=== PATIENT | female | born 1975 | race Caucasian/White ===

== ENCOUNTER 2016-12-06 18:35 | Inpatient (IN) | payer MEDICARE, MEDICAID ==
[2016-12-06] MEDS ORDERED: NORMAL SALINE 1000 ML 1,000 ML IV ONE ×2 (19:19→22:09)
[2016-12-06] MEDS ORDERED: ONDANSETRON 4 MG TAB.RAPDIS PO ONE (19:19)
--- NOTE | 2016-12-06 19:23 | ER Document Report ---
ED Medical Screen (RME) - General Chief Complaint: Vomiting Stated Complaint: URINARY SYMPTOMS/VOMITING Time Seen by Provider: 12/06/16 19:16 Notes: 41-year-old female patient with a history of vomiting, not able to keep anything down. Possible urinary tract infection dysuria. Patient possibly had a seizure at home while the family was out. She does have a seizure history and is not on medications. She is tachycardic at triage. Shee does feel quite warm to touch. She denies injury occurring during her seizure. I have greeted and performed a rapid initial assessment of this patient. A comprehensive ED assessment and evaluation of the patient, analysis of test results and completion of the medical decision making process will be conducted by additional ED providers. TRAVEL OUTSIDE OF THE [place] IN LAST 30 DAYS: No - Related Data Allergies/Adverse Reactions: hydrocodone Adverse Reaction (Severe, Verified 12/06/16 18:44) nausea/vomiting Past Medical History - Past Medical History Cardiac Medical History: Denies: Hx Coronary Artery Disease, Hx Heart Attack, Hx Hypertension Pulmonary Medical History: Denies: Hx Asthma, Hx Bronchitis, Hx COPD, Hx Pneumonia Neurological Medical History: Reports: Hx Seizures - last one yrs ago. Denies: Hx Cerebrovascular Accident Renal/ Medical History: Denies: Hx Peritoneal Dialysis Musculoskeltal Medical History: Denies Hx Arthritis Past Surgical History: Reports: Hx Cholecystectomy - Immunizations Hx Diphtheria, Pertussis, Tetanus Vaccination: No Physical Exam - Vital signs Vitals: Temp Pulse Resp BP Pulse Ox 99.0 F 120 H 16 146/90 H 94 12/06/16 18:44 12/06/16 18:44 12/06/16 18:44 12/06/16 18:44 12/06/16 18:44 Course - Vital Signs Vital signs: Temp Pulse Resp BP Pulse Ox 99.0 F 120 H 16 146/90 H 94 12/06/16 18:44 12/06/16 18:44 12/06/16 18:44 12/06/16 18:44 12/06/16 18:44
[2016-12-06 20:00] LABS: HEMATOCRIT 43.6 % (36.0-47.0); HEMOGLOBIN 14.7 g/dL (12.0-15.5); HGB HCT DIFFERENCE 0.5; MEAN CORPUSCULAR HEMOGLOBIN 31.2 pg (27.0-33.4); MEAN CORPUSCULAR HGB CONC 33.7 g/dL (32.0-36.0); MEAN CORPUSCULAR VOLUME 93 fl (80-97); RED BLOOD COUNT 4.72 10^6/uL (3.72-5.28); RED CELL DISTRIBUTION WIDTH 13.1 % (11.5-14.0); WHITE BLOOD COUNT 16.5 10^3/uL (4.0-10.5)
[2016-12-06 20:06] LABS: ALANINE AMINOTRANSFERASE 42 U/L (9-52); ALKALINE PHOSPHATASE 173 U/L (38-126); ANION GAP 15 (5-19); ASPARTATE AMINO TRANSFERASE 35 U/L (14-36); BILIRUBIN,DIRECT 1.1 mg/dL (0.0-0.4); BILIRUBIN,TOTAL 2.9 mg/dL (0.2-1.3); BLOOD UREA NITROGEN 13 mg/dL (7-20); CARBON DIOXIDE 22 mmol/L (22-30); CHLORIDE 105 mmol/L (98-107); CREATININE RESULT 0.88 mg/dL (0.52-1.25); GLUCOSE 114 mg/dL (75-110); POTASSIUM 3.7 mmol/L (3.6-5.0); SODIUM 141.8 mmol/L (137-145); TOTAL PROTEIN 7.5 g/dL (6.3-8.2)
[2016-12-06 20:26] LABS: BAND NEUTROPHILS % (MANUAL) 2 % (3-5); BASOPHILS % (MANUAL) 0 % (0-2); EOSINOPHILS % (MANUAL) 0 % (0-6); LYMPHOCYTES % (MANUAL) 1 % (13-45); TOTAL CELLS COUNTED 100
[2016-12-06 20:30] LABS: OVALOCYTES SLIGHT; POIKILOCYTOSIS SLIGHT; TOXIC GRANULATION SLIGHT
[2016-12-06] MEDS ORDERED: ACETAMINOPHEN 325 MG TABLET PO ONE (22:10)
[2016-12-06] MEDS ORDERED: ONDANSETRON HCL INJ/PF 4 MG/2 ML SDV IV ONE (22:10)
[2016-12-06 22:34] LABS: APPEARANCE,URINE CLOUDY; BILIRUBIN,URINE NEGATIVE (NEGATIVE); GLUCOSE, URINE NEGATIVE (NEGATIVE); KETONES,URINE 20 mg/dL (NEGATIVE); LEUKOCYTE ESTERASE,URINE LARGE (NEGATIVE); NITRITE,URINE POSITIVE (NEGATIVE); PROTEIN,URINE 100 mg/dL (NEGATIVE); URINE SPECIFIC GRAVITY 1.012
[2016-12-06] MEDS ORDERED: CEFTRIAXONE INJ 1000 MG VIAL IV ONE (23:06)
--- NOTE | 2016-12-07 00:43 | ER Document Report ---
ED General - General Chief Complaint: Vomiting Stated Complaint: URINARY SYMPTOMS/VOMITING Time Seen by Provider: 12/06/16 19:16 Notes: Patient is a 41-year-old female presents with complaint of right-sided back pain and dysuria. She also woke up on the floor from her bed. She thinks may have had a seizure. She has history of seizures. She also has been having fevers off and on. T-max at home was 102 today. She has had some vomiting. No diarrhea. some body aches. No other complaints at this time. TRAVEL OUTSIDE OF THE [place] IN LAST 30 DAYS: No - Related Data Allergies/Adverse Reactions: hydrocodone Adverse Reaction (Severe, Verified 12/06/16 18:44) nausea/vomiting Past Medical History - Social History Smoking Status: Current Every Day Smoker Chew tobacco use (# tins/day): No Frequency of alcohol use: None Drug Abuse: None Family History: Reviewed & Not Pertinent Patient has suicidal ideation: No Patient has homicidal ideation: No - Past Medical History Cardiac Medical History: Denies: Hx Coronary Artery Disease, Hx Heart Attack, Hx Hypertension Pulmonary Medical History: Denies: Hx Asthma, Hx Bronchitis, Hx COPD, Hx Pneumonia Neurological Medical History: Reports: Hx Seizures - last one yrs ago. Denies: Hx Cerebrovascular Accident Renal/ Medical History: Denies: Hx Peritoneal Dialysis Musculoskeltal Medical History: Denies Hx Arthritis Past Surgical History: Reports: Hx Cholecystectomy - Immunizations Hx Diphtheria, Pertussis, Tetanus Vaccination: No Review of Systems - Review of Systems Notes: My Normal Review Basic REVIEW OF SYSTEMS: CONSTITUTIONAL : fever EENT: Denies eye, ear, throat, or mouth pain or symptoms. Denies nasal or sinus congestion. CARDIOVASCULAR: Denies chest pain. RESPIRATORY: Denies cough, cold, or chest congestion. Denies shortness of breath, difficulty breathing, or wheezing. GASTROINTESTINAL: Denies abdominal pain. vomiting. GENITOURINARY: dysuria MUSCULOSKELETAL: bodycaches SKIN: Denies rash or skin lesions. HEMATOLOGIC : Denies easy bruising or bleeding. LYMPHATIC: Denies swollen, enlarged glands. NEUROLOGICAL: ? seizure PSYCHIATRIC: Denies anxiety or stress or depression. ALL OTHER SYSTEMS REVIEWED AND NEGATIVE. Physical Exam - Vital signs Vitals: Temp Pulse Resp BP Pulse Ox 99.0 F 120 H 16 146/90 H 94 12/06/16 18:44 12/06/16 18:44 12/06/16 18:44 12/06/16 18:44 12/06/16 18:44 - Notes Notes: General Appearance: Well nourished, alert, cooperative, no acute distress, mild obvious discomfort. Vitals: reviewed, See vital signs table. Head: no swelling or tenderness to the head Eyes: PERRL, EOMI, Conjuctiva clear Mouth: No decreasd moisture Lungs: No wheezing, No rales, No rhonci, No accessory muscle use, good air exchange bilaterally. Heart: Tachycardic rate, Regular rythm, No murmur, no rub Abdomen: Normal BS, soft, No rigidity, No abdominal tenderness, No guarding, no rebound, no abdominal masses, no organomegaly Back: Positive Jeremy's sign on the right. Extremities: strength 5/5 in all extremities, good pulses in all extremities, no swelling or tenderness in the extremities, no edema. Skin: warm, dry, appropriate color, no rash Neuro: speech clear, oriented x 3, normal affect, responds appropriately to questions. Course - Vital Signs Vital signs: Temp Pulse Resp BP Pulse Ox 98.7 F 108 H 16 130/69 H 96 12/07/16 01:39 12/07/16 01:39 12/07/16 01:39 12/07/16 01:39 12/07/16 01:39 - Laboratory Result Diagrams: 12/06/16 19:38 12/06/16 19:38 Laboratory results interpreted by me: 12/06/16 12/06/16 12/06/16 19:38 19:38 22:04 WBC 16.5 H Seg Neuts % (Manual) 91 H Band Neutrophils % 2 L Lymphocytes % (Manual) 1 L Abs Neuts (Manual) 15.3 H Abs Lymphs (Manual) 0.2 L Glucose 114 H Total Bilirubin 2.9 H Direct Bilirubin 1.1 H Alkaline Phosphatase 173 H Urine Protein 100 H Urine Ketones 20 H Urine Blood LARGE H Urine Nitrite POSITIVE H Urine Urobilinogen 4.0 H Ur Leukocyte Esterase LARGE H - Transfer of Care Notes: 12/07/16 03:[address] Hardy, urologist on-call, he says he will come evaluate the patient for possible interventional treatment for the infected kidney stone. Patient continues to not appear septic or toxic. Discharge - Discharge Clinical Impression: Pyelonephritis, Calculus of right kidney Condition: Stable Disposition: ADMITTED INPATIENT Admitting Provider: [facility] Admitted: OR
--- NOTE | 2016-12-07 00:50 | RADIOLOGY REPORT (SQ) ---
EXAM DESCRIPTION: U/S RETROPERITON (RENAL/AORTA) COMPLETED DATE/TIME: 12/07/2016 12:23 am REASON FOR STUDY: kidney infection COMPARISON: CT, 02/27/2016. TECHNIQUE: Dynamic and static grayscale images acquired of the kidneys and bladder and recorded on P ACS. Additional selected color Doppler and spectral images recorded. LIMITATIONS: None. FINDINGS: RIGHT KIDNEY: Normal size. Normal echogenicity. No solid or suspicious masses. Nonspecifi c prominence of the right renal collecting system. No calcifications. LEFT KIDNEY: Normal size. Normal echogenicity. No solid or suspicious masses. No hydronephrosis. No calcifications. BLADDER: No masses. Ureteral jet flow was not demonstrated. OTHER FINDINGS: No other significant finding. IMPRESSION: Nonspecific prominence of the right renal collecting system which may indicate mild hydr onephrosis/ hydroureter or mild dilation. Otherwise unremarkable bilateral kidneys. TECHNICAL DOCUMENTATION: JOB ID: [id number] [employer]- All Rights Reserved
--- NOTE | 2016-12-07 02:37 | RADIOLOGY REPORT (SQ) ---
EXAM DESCRIPTION: CT LTD RENAL STONE PROTOCOL ON COMPLETED DATE/TIME: 12/07/2016 2:23 am REASON FOR STUDY: rule out kidney stone COMPARISON: US, renal, 12/06/16 TECHNIQUE: CT scan of the abdomen and pelvis performed without intravenous or oral contrast. Images reviewed with lung, soft tissue, and bone windows. Reconstructed coronal and sagittal MPR images revi ewed. All images stored on PACS. All CT scanners at this facility use dose modulation, iterative reconstruction, and/or weight based d osing when appropriate to reduce radiation dose to as low as reasonably achievable (ALARA). [facility]: Dose Right [facility]: CareDose [facility]: Dose Right [facility]: Teradose 4D [facility]: Metavana RADIATION DOSE: 939 LIMITATIONS: None. FINDINGS: LOWER CHEST: Small dependent atelectasis or scar of bilateral lung bases. NON-CONTRASTED LIVER, SPLEEN, ADRENALS: Evaluation limited by lack of IV contrast. No identified sign ificant masses. PANCREAS: No masses. No peripancreatic inflammatory changes. GALLBLADDER: Surgically absent. RIGHT KIDNEY AND URETER: 0.5 x 0.4 x 0.3 cm right proximal-mid ureteral stone at the level of the L4 vertebral body, mild right hydronephrosis, mild right proximal hydroureter, malrotation of the right kidney, right renal malrotation, and moderate right perirenal fat stranding consistent with recent ve sicoureteral reflux. 0.2 cm right renal stone. LEFT KIDNEY AND URETER: No suspicious masses. Assessment limited by lack of IV contrast. 0.3 cm lef t renal stone. No hydronephrosis or hydroureter. AORTA AND RETROPERITONEUM: No aneurysm. No retroperitoneal masses or adenopathy. BOWEL AND PERITONEAL CAVITY: No obvious masses or inflammatory changes. No free fluid. APPENDIX: Normal. PELVIS, BLADDER, AND ABDOMINAL WALL:No abnormal masses. No free fluid. Bladder normal. BONES: Mild L2-L3 disc desiccation. OTHER: No other significant finding. IMPRESSION: 0.5 cm right mid ureteral stone with low- moderate grade obstruction. TECHNICAL DOCUMENTATION: JOB ID: [id number] Quality ID # [id number]: Final reports with documentation of one or more dose reduction techniques (e.g., Au tomated exposure control, adjustment of the mA and/or kV according to patient size, use of iterative reconstruction technique) 2010 [employer]- All Rights Reserved
[2016-12-07] MEDS ORDERED: FENTANYL CITRATE INJ/PF 100 MCG/2 ML AMPUL ONE ×2 (04:31)
[2016-12-07] MEDS ORDERED: PROPOFOL INJ 200 MG/20 ML VIAL IV ONE (04:32)
[2016-12-07] MEDS ORDERED: ONDANSETRON HCL INJ/PF 4 MG/2 ML SDV ONE (04:32)
[2016-12-07] MEDS ORDERED: MIDAZOLAM 2 MG/2 ML INJ ONE (04:32)
[2016-12-07] MEDS ORDERED: DEXAMETHASONE SOD PHOSPHATE INJ 4 MG/1 ML VIAL ONE (04:32)
[2016-12-07] MEDS ORDERED: LIDOCAINE 2% URO-JET 5 ML KIT ONE (05:17)
[2016-12-07] MEDS ORDERED: LIDOCAINE 2% URO-JET 5 ML KIT MM ONE (05:27)
[2016-12-07] MEDS ORDERED: MEPERIDINE HCL/PF INJ 25 MG/1 ML DISP.SYRIN IV PRN (05:54)
[2016-12-07] MEDS ORDERED: FENTANYL CITRATE INJ/PF 100 MCG/2 ML AMPUL IV PRN ×3 (05:54)
[2016-12-07] MEDS ORDERED: PROMETHAZINE HCL INJ 25 MG/1 ML VIAL IV PRN ×2 (05:54)
[2016-12-07] MEDS ORDERED: DIPHENHYDRAMINE HCL 50 MG/ML VIAL IV PRN (05:54)
[2016-12-07] MEDS ORDERED: 1/2 NORMAL SALINE 1,000 ML IV PRN ×3 (06:12→19:00)
[2016-12-07] MEDS ORDERED: OXYBUTYNIN CHLORIDE 5 MG TABLET PO SCH (06:15)
--- NOTE | 2016-12-07 06:19 | RADIOLOGY REPORT (SQ) ---
EXAM DESCRIPTION: KUB/ABDOMEN (SINGLE VIEW); NO CHG FLUORO COMPLETED DATE/TIME: 12/07/2016 6:01 am REASON FOR STUDY: STENT PLCMT RT SIDE DONE IN CYSTO ROOM COMPARISON: None. NUMBER OF VIEWS: One view. 3 images. Fluoro time 20 seconds. TECHNIQUE: Supine radiographic image of the abdomen acquired. LIMITATIONS: None. FINDINGS: Portable C-arm radiographs obtained interpreted by the performing clinician at time examin ation to facilitate surgical outcome during right ureteral stent placement. IMPRESSION: As above. TECHNICAL DOCUMENTATION: JOB ID: [id number] [employer]- All Rights Reserved
--- NOTE | 2016-12-07 06:19 | RADIOLOGY REPORT (SQ) ---
EXAM DESCRIPTION: KUB/ABDOMEN (SINGLE VIEW); NO CHG FLUORO COMPLETED DATE/TIME: 12/07/2016 6:01 am REASON FOR STUDY: STENT PLCMT RT SIDE DONE IN CYSTO ROOM COMPARISON: None. NUMBER OF VIEWS: One view. 3 images. Fluoro time 20 seconds. TECHNIQUE: Supine radiographic image of the abdomen acquired. LIMITATIONS: None. FINDINGS: Portable C-arm radiographs obtained interpreted by the performing clinician at time examin ation to facilitate surgical outcome during right ureteral stent placement. IMPRESSION: As above. TECHNICAL DOCUMENTATION: JOB ID: [id number] [employer]- All Rights Reserved
[2016-12-07] MEDS ORDERED: KETOROLAC TROMETHAMINE INJ/PF 30 MG/1 ML SDV IV PRN ×2 (06:28→08:22)
--- NOTE | 2016-12-07 06:38 | OPERATIVE REPORT E ---
Operative Report NAME: PEYTON JONES : 1975 AGE: 41Y DATE OF SURGERY: 12/07/2016 ROOM: ED13 PREOPERATIVE DIAGNOSES: 1. Right ureteral calculus. 2. Right pyelonephritis. 3. Urinary tract infection. PROCEDURE: Cystoscopy with insertion of right ureteral stent (24 cm x 6-Turkmen). SURGEON: LINH KAPLAN M.D. HR LEADER: None. SPECIMENS: None. BLEEDING: None. COMPLICATIONS: None. ANESTHESIA: MAC. INDICATIONS: The patient is a 41-year-old lady who was seen in the emergency room because of a temp of 102, white count of 16,500, and a UTI with a proximal right ureteral stone that is obstructing her ureter. Various options for treatment as well as risks and benefits were discussed with the patient. I recommended cystoscopy with insertion of a right ureteral stent. She agrees. OPERATION: After the patient was identified in the preop holding area, she was brought to the operating room. A timeout was performed for the correct patient, side of procedure, and procedure was confirmed. She was then given sedation and was next carefully positioned in a dorsal lithotomy position. She was prepped and draped in the routine sterile manner. A #23 obturator and sheath was inserted. The bladder was carefully examined. The urine appeared grossly infected. A guidewire was threaded up the right ureter under fluoroscopic guidance. A 24 cm x 6-Turkmen double-J catheter was threaded over the guidewire into the right collecting system with a distal coil in the bladder. Good position was confirmed with fluoroscopy. The bladder was emptied. The patient was returned to recovery room in satisfactory condition. PLAN: Once she is afebrile and her white count has normalized and she can be switched to oral antibiotics, she will be discharged for further followup as an outpatient. She was instructed to follow up with the Urology Clinic to arrange for right ureteroscopy with laser lithotripsy and removal of her double-J catheter. Since she has bilateral stones in her kidney and a ureteral stone, I recommended metabolic workup for stone disease as well. DICTATING PHYSICIAN: LINH KAPLAN M.D. [id number] PHY#: [id number] ID: [id number] JOB#: [id number] ACCT: [id number] cc:LINH KAPLAN M.D. >
--- NOTE | 2016-12-07 06:49 | HISTORY AND PHYSICAL E ---
History and Physical NAME: PEYTON JONES : 1975 AGE: 41Y ADMITTED: 12/07/2016 ROOM: ED13 CHIEF COMPLAINT: Right flank pain. HISTORY OF THE PRESENT ILLNESS: The patient is a 41-year-old lady, who developed sudden right flank pain 72 hours ago. This was associated with nausea and vomiting. She was seen in the emergency room yesterday and had a temperature of 102. She had also been having chills. A noncontrast CT showed a proximal 4.4 mm right ureteral stone with associated perinephric inflammatory changes consistent with obstruction. She has a punctate right mid kidney stone and a 3 mm nonobstructing stone in a papilla in the left lower pole. Her urinalysis appears grossly infected. She was given IV Rocephin after blood and urine cultures were sent. She denies any history of previous kidney stones. She has history of seizure and had one many years ago. She has normal renal function with creatinine of 0.8. Her bilirubin is elevated at 2.9. ALLERGIES: She has allergy to HYDROCODONE and has nausea and vomiting. The remainder of her social history, family history, review of systems is as noted in her admission note from the ER dated 12/06/[address] Mark Doan, which I reviewed and will not recount this dictation. PHYSICAL EXAMINATION: GENERAL: The patient is a 41-year-old white female in obvious distress. She is oriented x 3, she has an appropriate affect, she is overweight. VITAL SIGNS: As listed in the nurses' notes. HEAD, EYES, EARS, NOSE, THROAT, AND NECK: Extraocular movements are intact. Sclerae are nonicteric. No facial lesions are noted. Trachea is midline. RESPIRATORY: No evidence of labored breathing. HEART: Regular rhythm. ABDOMEN: Soft. GENITALIA: Show normal labia and vaginal introitus. No evidence of pelvic organ prolapse. EXTREMITIES: Full range of motion. SKIN: She has changes of psoriasis. neurological: normal IMPRESSION: 1. BILATERAL KIDNEY STONES THAT ARE SMALL AND NONOBSTRUCTING. 2. OBSTRUCTING 4.4 MM PROXIMAL RIGHT URETERAL CALCULUS. 3. RIGHT PYELONEPHRITIS. 4. URINARY TRACT INFECTION. PLAN: 1. Rocephin 1 gram IV q.12 hours. Pending culture results, she will be switched to oral therapy. 2. Discharge when she is afebrile and can be discharged on oral medication. 3. She will need to follow up with her PCP regarding her elevated bilirubin to sort this out. 4. She will need to make an appointment with the Urology Clinic to arrange for right ureteroscopy with laser lithotripsy and removal of her ureteral stent. DICTATING PHYSICIAN: LINH KAPLAN M.D. [id number] PHY#: [id number] ID: [id number] JOB#: [id number] ACCT: [id number] cc: > MTDD
[2016-12-07] MEDS: MORPHINE SULFATE 10 MG/ML INJ IV PRN ×3 (08:35→18:59)
[2016-12-07] MEDS: CEFTRIAXONE 1 GM/D5W RTU 1 GM/50 ML RTUPB IV SCH (10:05)
[2016-12-07] MEDS: OXYBUTYNIN CHLORIDE 5 MG TABLET PO SCH (10:06)
[2016-12-07] MEDS: PHENAZOPYRIDINE HCL 200 MG TABLET PO PRN ×2 (10:06→18:59)
[2016-12-07] MEDS: ACETAMINOPHEN 325 MG TABLET PO PRN (10:17)
[2016-12-07] MEDS: ONDANSETRON 4 MG TAB.RAPDIS PO PRN ×2 (13:45→22:30)
[2016-12-07] MEDS: HYDROCODONE/ACETAMINOPHEN 5-325 MG TABLET PO PRN (16:55)
[2016-12-07] MEDS: ONDANSETRON HCL INJ/PF 4 MG/2 ML SDV IV PRN (18:59)
[2016-12-08] MEDS: CEFTRIAXONE 1 GM/D5W RTU 1 GM/50 ML RTUPB IV SCH (01:26)
[2016-12-08] MEDS: OXYBUTYNIN CHLORIDE 5 MG TABLET PO SCH ×3 (01:27→21:29)
[2016-12-08] MEDS: ACETAMINOPHEN 325 MG TABLET PO PRN ×4 (04:25→21:32)
[2016-12-08] MEDS: MORPHINE SULFATE 10 MG/ML INJ IV PRN ×3 (04:25→21:32)
[2016-12-08 06:00] LABS: HEMATOCRIT 35.6 % (36.0-47.0); HGB HCT DIFFERENCE -0.5; MEAN CORPUSCULAR HGB CONC 32.7 g/dL (32.0-36.0); MEAN CORPUSCULAR VOLUME 95 fl (80-97); RED BLOOD COUNT 3.76 10^6/uL (3.72-5.28); RED CELL DISTRIBUTION WIDTH 13.2 % (11.5-14.0); WHITE BLOOD COUNT 11.4 10^3/uL (4.0-10.5)
[2016-12-08 06:10] LABS: HEMOGLOBIN 11.7 g/dL (12.0-15.5)
[2016-12-08 06:11] LABS: ANION GAP 11 (5-19); BLOOD UREA NITROGEN 16 mg/dL (7-20); CALCIUM 8.2 mg/dL (8.4-10.2); CARBON DIOXIDE 21 mmol/L (22-30); CHLORIDE 106 mmol/L (98-107); CREATININE RESULT 0.98 mg/dL (0.52-1.25); GLUCOSE 130 mg/dL (75-110); POTASSIUM 3.5 mmol/L (3.6-5.0); SODIUM 138.1 mmol/L (137-145)
[2016-12-08] MEDS: ONDANSETRON 4 MG TAB.RAPDIS PO PRN (09:01)
[2016-12-08] MEDS ORDERED: BISACODYL 10 MG SUPP.RECT PR PRN (09:39)
--- NOTE | 2016-12-08 10:13 | PROGRESS NOTE E ---
Progress Note NAME: PEYTON JONES : 1975 AGE: 41Y DATE: 12/08/2016 ROOM: 528 SUBJECTIVE: The patient had a temp of 102.2 at 4 a.m. today. Her temp was 100.8 at 5 a.m. Currently it is 99. She had 1 positive blood culture and a positive urine culture for gram-negative last. The sensitivities are pending at this time. She is currently on Rocephin. Her blood pressure is 105/58. Her respirations are 18. She has had some nausea overnight and also complains of a headache. Her IV infiltrated. For the past 24 hours she had 4800 in and 4000 out. OBJECTIVE: GENERAL: She is alert, oriented in mild distress. VITAL SIGNS: Noted above. CHEST: Shows some scattered rales and some wheezes. No evidence of consolidation. No evidence of labored breathing. HEART: Regular rhythm without murmur or gallop. ABDOMEN: Soft. LABORATORY DATA: Her white count has dropped from 16,500 to 11,400. Her hemoglobin has dropped from 14.7 to 11.7 (most likely due to dilution effect). Her potassium is 3.5, creatinine 0.98, glucose is 130, calcium is 8.2. IMPRESSION: 1. Bacteremia. 2. History of smoking with scattered rales and rhonchi. 3. Right ureteral calculus and pyelonephritis status post insertion of double-J catheter. PLAN: 1. Reinsert her IV or if this cannot be done, then she will need a central line. 2. Nicotine patch. 3. [id number] and Dulcolax suppositories as needed for constipation. 4. Expand her antibiotic coverage. Will start Meropenem 500mg q 8hr. will add 20meq KCl/liter x 48 hr, recheck BMP in AM 5. She will need to remain hospitalized until her temperature normalizes and she can be switched to oral antibiotics. She will then need to be followed up as an outpatient in the Urology Clinic and to arrange for ureteroscopy with laser lithotripsy and removal of her stent some time next week. 6. Consult Hospitalist for medical management. I will be rotating off service at 8AM tomorrow. I have spoke with the hospitalist and the hospitalist team will take Peyton in transfer tomorrow. I have written a prescription for Vicodin #15, and Oxybutynin XL 10mg and left the Rx in the front of the chart. I did not write a Rx for oral antibiotics to take upon discharge because her culture sensitivities are still pending. DICTATING PHYSICIAN: LINH KAPLAN M.D. [id number] PHY#: [id number] ID: [id number] JOB#: [id number] ACCT: [id number] cc: > MTDD
--- NOTE | 2016-12-08 10:40 | RADIOLOGY REPORT (SQ) ---
EXAM DESCRIPTION: CHEST PA/LAT COMPLETED DATE/TIME: 12/08/2016 10:31 am REASON FOR STUDY: wheezing COMPARISON: 05/22/2016 EXAM PARAMETERS: NUMBER OF VIEWS: two views TECHNIQUE: Digital Frontal and Lateral radiographic views of the chest acquired. RADIATION DOSE: NA LIMITATIONS: none FINDINGS: LUNGS AND PLEURA: No opacities, masses or pneumothorax. No pleural effusion. MEDIASTINUM AND HILAR STRUCTURES: No masses or contour abnormalities. HEART AND VASCULAR STRUCTURES: Heart normal size. No evidence for failure. BONES: No acute findings. HARDWARE: None in the chest. OTHER: No other significant finding. IMPRESSION: NO SIGNIFICANT RADIOGRAPHIC FINDING IN THE CHEST. TECHNICAL DOCUMENTATION: JOB ID: [id number] [employer]- All Rights Reserved
[2016-12-08] MEDS ORDERED: PROMETHAZINE HCL 25 MG SUPP (4 SUPP/ER DISP) PR ONE (11:07)
[2016-12-08] MEDS ORDERED: MORPHINE SULFATE 10 MG/ML INJ IM PRN (11:07)
[2016-12-08] MEDS ORDERED: PROMETHAZINE HCL 25 MG SUPP.RECT PR PRN (11:16)
--- NOTE | 2016-12-08 11:16 | PDOC CONSULTATION ---
Consultation Consult Date: 12/08/16 Attending physician:: LINH KAPLAN Consult reason:: Managing medical conditions including bacteremia History of Present Illness Admission Date/PCP: 12/07/16 11:28 Patient complains of: Nausea and flank pain History of Present Illness: PEYTON JONES is a 41 year old female has no chronic past medical history except for congenital deafness who presented with flank pain and fever and was found to have a kidney stone. The patient was admitted by urology and a stent was placed. Blood culture showing gram-negative last bacteremia. The hospitalist service has been consulted for management of bacteremia and other medical conditions. The patient today denies any complaints other than feeling nauseous and having flank pain. Past Medical History Cardiac Medical History: Denies: Coronary Artery Disease, Myocardial Infarction, Hypertension Pulmonary Medical History: Denies: Asthma, Bronchitis, Chronic Obstructive Pulmonary Disease (COPD), Pneumonia EENT Medical History: Reports: Other - Congenital deafness Neurological Medical History: Reports: Seizures - last one yrs ago Endocrine Medical History: Reports: None Renal/ Medical History: Reports: Nephrolithiasis Malignancy Medical History: Reports: None GI Medical History: Reports: None Musculoskeltal Medical History: Denies: Arthritis Psychiatric Medical History: Denies: Depression Traumatic Medical History: Reports: None Hematology: Denies: Anemia Past Surgical History Past Surgical History: Reports: Cholecystectomy Social History Information Source: Patient Lives with: Spouse/Significant other Smoking Status: Current Every Day Smoker Cigarettes Packs Per Day: 0.2 Frequency of Alcohol Use: None Hx Recreational Drug Use: No Drugs: None Hx Prescription Drug Abuse: No - Advance Directive Resuscitation Status: Full Code Surrogate healthcare decision maker:: Family History Family History: Mother at age 63 from uterine cancer. Father 69 alive. He has had unspecified type of cancer Parental Family History Reviewed: Yes Children Family History Reviewed: No Sibling(s) Family History Reviewed.: No Medication/Allergy Home Medications: No Home Medications 12/07/16 Allergies/Adverse Reactions: hydrocodone Adverse Reaction (Severe, Verified 12/07/16 16:46) nausea/vomiting Review of Systems Constitutional: PRESENT: chills, fever(s). ABSENT: headache(s), weight gain, weight loss Eyes: ABSENT: visual disturbances Ears: PRESENT: other - Deafness Cardiovascular: ABSENT: chest pain, dyspnea on exertion, edema, orthropnea, palpitations Respiratory: ABSENT: cough, hemoptysis Gastrointestinal: PRESENT: nausea, vomiting. ABSENT: abdominal pain, constipation, diarrhea, hematemesis, hematochezia Genitourinary: PRESENT: as per HPI Musculoskeletal: ABSENT: joint swelling Integumentary: ABSENT: rash, wounds Neurological: ABSENT: abnormal gait, abnormal speech, confusion, dizziness, focal weakness, syncope Psychiatric: ABSENT: anxiety, depression Endocrine: ABSENT: cold intolerance, heat intolerance, polydipsia, polyuria Hematologic/Lymphatic: ABSENT: easy bleeding, easy bruising Physical Exam Vital Signs: Temp Pulse Resp BP Pulse Ox 99.0 F 95 18 105/58 L 94 12/08/16 07:57 12/08/16 07:57 12/08/16 07:57 12/08/16 07:57 12/08/16 07:57 Intake & Output 12/07/16 12/08/16 12/09/16 06:59 06:59 06:59 Intake Total 1404 Output Total 1650 Balance -246 General appearance: PRESENT: no acute distress Head exam: PRESENT: atraumatic, normocephalic Eye exam: PRESENT: conjunctiva pink. ABSENT: scleral icterus Ear exam: PRESENT: normal external ear exam Mouth exam: PRESENT: moist, tongue midline Neck exam: ABSENT: carotid bruit, JVD, lymphadenopathy, thyromegaly Respiratory exam: PRESENT: clear to auscultation kenton. ABSENT: rales, rhonchi, wheezes Cardiovascular exam: PRESENT: RRR. ABSENT: diastolic murmur, rubs, systolic murmur GI/Abdominal exam: PRESENT: normal bowel sounds, soft. ABSENT: distended, guarding, mass, organolmegaly, rebound, tenderness Rectal exam: PRESENT: deferred Extremities exam: ABSENT: calf tenderness, clubbing, pedal edema Neurological exam: PRESENT: alert, awake, oriented to person, oriented to place , oriented to time, oriented to situation, other - Patient is deaf. ABSENT: motor sensory deficit Psychiatric exam: PRESENT: appropriate affect Skin exam: PRESENT: dry, intact, warm. ABSENT: cyanosis, rash Results Laboratory Results: 12/08/16 05:26 12/08/16 05:26 12/08/16 12/08/16 05:26 05:26 WBC 11.4 H RBC 3.76 Hgb 11.7 L D Hct 35.6 L MCV 95 MCH 31.0 MCHC 32.7 RDW 13.2 Plt Count 119 L Sodium 138.1 Potassium 3.5 L Chloride 106 Carbon Dioxide 21 L Anion Gap 11 BUN 16 Creatinine 0.98 Est GFR ( Amer) > 60 Est GFR (Non-Af Amer) > 60 Glucose 130 H Calcium 8.2 L Impressions: Renal Ultrasound 12/06/16 23:06 IMPRESSION: Nonspecific prominence of the right renal collecting system which may indicate mild hydronephrosis/ hydroureter or mild dilation. Otherwise unremarkable bilateral kidneys. KUB X-Ray 12/07/16 00:00 IMPRESSION: As above. Limited or Localized CT 12/07/16 01:59 IMPRESSION: 0.5 cm right mid ureteral stone with low- moderate grade obstruction. Fluoroscopy 12/07/16 05:05 IMPRESSION: As above. Chest X-Ray 12/08/16 09:39 IMPRESSION: NO SIGNIFICANT RADIOGRAPHIC FINDING IN THE CHEST. Assessment & Plan - Diagnosis (1) Kidney stone on right side Is this a current diagnosis for this admission?: YesPlan: Patient has had a stent placed. (2) Pyelonephritis Is this a current diagnosis for this admission?: YesPlan: Been switched to doripenem. Patient does have bacteremia also appear. Patient is having some pain and does not yet have an IV. We will give morphine IM until an IV has been established. - Time Time Spent: 50 to 70 Minutes - Inpatient Certification Medical Necessity: Need Close Monitoring Due to Risk of Patient Decompensation, Need for IV Antibiotics
[2016-12-08] MEDS: NICOTINE 7 MG/24 HR PATCH.TD24 TD PRN (11:33)
[2016-12-08] MEDS ORDERED: LIDOCAINE 1% INJ-PF (10 MG/ML) 30 ML SDV ONE (12:06)
--- NOTE | 2016-12-08 13:06 | RADIOLOGY REPORT (SQ) ---
EXAM DESCRIPTION: CHEST SINGLE VIEW COMPLETED DATE/TIME: 12/08/2016 12:50 pm REASON FOR STUDY: RT CL COMPARISON: 12/08/2016 EXAM PARAMETERS: NUMBER OF VIEWS: One view. TECHNIQUE: Single frontal radiographic view of the chest acquired. RADIATION DOSE: NA LIMITATIONS: None. FINDINGS: LUNGS AND PLEURA: No opacities, masses or pneumothorax. No pleural effusion. MEDIASTINUM AND HILAR STRUCTURES: No masses. Contour normal. HEART AND VASCULAR STRUCTURES: Heart normal in size. Normal vasculature. BONES: No acute findings. HARDWARE: Right IJ venous catheter terminates within the caval atrial junction. OTHER: No other significant finding. IMPRESSION: SATISFACTORY PLACEMENT RIGHT IJ VENOUS CATHETER. NO COMPLICATION IDENTIFIED. TECHNICAL DOCUMENTATION: JOB ID: [id number]
--- NOTE | 2016-12-08 13:28 | OPERATIVE REPORT E ---
Operative Report NAME: PEYTON JONES : 1975 AGE: 41Y DATE OF SURGERY: ROOM: 528 PREOPERATIVE DIAGNOSES: 1. Poor veins for intravenous access. 2. Sepsis. POSTOPERATIVE DIAGNOSES: 1. Poor veins for intravenous access. 2. Sepsis. OPERATION: Insertion of right internal jugular vein triple lumen catheter under ultrasound guidance. SURGEON: MAHENDRA GONZALES M.D. ANESTHESIA: Local monitored anesthesia care. INDICATION: This is a 41-year-old female who had a stent placed in the ureter yesterday by Dr. Hardy. Patient noted fever and sepsis today and needed IV access for IV antibiotic medication and other meds. Patient did have a dose of morphine IM prior to placement of the catheter. PROCEDURE: After IM morphine medication, the right neck was then prepped and draped in the usual sterile fashion. With the use of ultrasound the right internal jugular vein was then identified and subsequently punctured, and a guidewire passed through the needle towards the superior vena cava. The needle was removed, and the puncture site enlarged with a #11 blade. A dilator was then passed through the guidewire, and the puncture site dilated. The dilator was removed, a triple lumen catheter inserted through the guidewire, and inserted to about 17 cm towards the superior vena cava. The guidewire was subsequently removed, and all the ports aspirated easily with blood and injected with saline solution easily. The catheter was then anchored to the skin with 3-0 silk. A Biopatch was then placed at the puncture site, and a sterile *------* dressing was then used to dress the catheter. A chest x-ray will be obtained for placement. Patient tolerated the procedure well. DICTATING PHYSICIAN: MAHENDRA GONZALES M.D. [id number] PHY#: [id number] ID: [id number] JOB#: [id number] ACCT: [id number] cc:MAHENDRA GONZALES M.D. >
[2016-12-08] MEDS: POTASSI CL 20 MEQ/1/2NS 1L 1000 ML IV PRN (14:19)
[2016-12-08] MEDS: DORIPENEM 500 MG in NORMAL SALINE 100 ML IV SCH ×2 (14:19→21:29)
[2016-12-08] MEDS: HYDROCODONE/ACETAMINOPHEN 5-325 MG TABLET PO PRN (19:30)
[2016-12-09] MEDS: ACETAMINOPHEN 325 MG TABLET PO PRN ×2 (02:35→06:39)
[2016-12-09] MEDS: POTASSI CL 20 MEQ/1/2NS 1L 1000 ML IV PRN ×2 (02:47→10:57)
[2016-12-09] MEDS: MORPHINE SULFATE 10 MG/ML INJ IV PRN ×2 (02:47→06:39)
[2016-12-09] MEDS: DORIPENEM 500 MG in NORMAL SALINE 100 ML IV SCH ×3 (05:36→21:51)
[2016-12-09 06:40] LABS: MEAN CORPUSCULAR HEMOGLOBIN 31.7 pg (27.0-33.4); MEAN CORPUSCULAR HGB CONC 33.5 g/dL (32.0-36.0); MEAN CORPUSCULAR VOLUME 95 fl (80-97); RED BLOOD COUNT 3.48 10^6/uL (3.72-5.28); RED CELL DISTRIBUTION WIDTH 13.4 % (11.5-14.0); WHITE BLOOD COUNT 4.4 10^3/uL (4.0-10.5)
[2016-12-09 06:51] LABS: ANION GAP 9 (5-19); BLOOD UREA NITROGEN 11 mg/dL (7-20); CALCIUM 7.6 mg/dL (8.4-10.2); CARBON DIOXIDE 26 mmol/L (22-30); CHLORIDE 105 mmol/L (98-107); CREATININE RESULT 0.86 mg/dL (0.52-1.25); GLUCOSE 105 mg/dL (75-110); POTASSIUM 3.6 mmol/L (3.6-5.0); SODIUM 140.4 mmol/L (137-145)
[2016-12-09] MEDS: ONDANSETRON HCL INJ/PF 4 MG/2 ML SDV IV PRN (07:54)
--- NOTE | 2016-12-09 09:25 | PDOC PROGRESS REPORT ---
Subjective Progress Note for:: 12/09/16 Subjective:: Complains of headache. Urine culture growing out E. coli. Blood culture results are pending at this time Physical Exam Vital Signs: Temp Pulse Resp BP Pulse Ox 98.4 F 106 H 16 150/86 H 94 12/09/16 08:00 12/09/16 08:00 12/09/16 08:00 12/09/16 08:00 12/09/16 08:00 Intake & Output 12/08/16 12/09/16 12/10/16 06:59 06:59 06:59 Intake Total 1404 2824 Output Total 1650 1950 Balance -246 874 General appearance: PRESENT: no acute distress Eye exam: PRESENT: conjunctiva pink. ABSENT: scleral icterus Mouth exam: PRESENT: moist, tongue midline Neck exam: ABSENT: JVD Respiratory exam: PRESENT: clear to auscultation kenton. ABSENT: rales, rhonchi, wheezes Cardiovascular exam: PRESENT: RRR. ABSENT: diastolic murmur, rubs, systolic murmur GI/Abdominal exam: PRESENT: normal bowel sounds, soft, tenderness - Right upper quadrant tenderness but no guarding or rebound.. ABSENT: distended, guarding, mass, organolmegaly, rebound Extremities exam: ABSENT: calf tenderness, clubbing, pedal edema Neurological exam: PRESENT: alert, awake, oriented to person, oriented to place , oriented to time, oriented to situation, other - Patient is deaf. ABSENT: motor sensory deficit Psychiatric exam: PRESENT: appropriate affect Skin exam: PRESENT: dry, intact, warm. ABSENT: cyanosis, rash Results Laboratory Results: 12/09/16 06:00 12/09/16 06:00 12/09/16 12/09/16 06:00 06:00 WBC 4.4 RBC 3.48 L Hgb 11.0 L Hct 33.0 L MCV 95 MCH 31.7 MCHC 33.5 RDW 13.4 Plt Count 123 L Sodium 140.4 Potassium 3.6 Chloride 105 Carbon Dioxide 26 Anion Gap 9 BUN 11 Creatinine 0.86 Est GFR ( Amer) > 60 Est GFR (Non-Af Amer) > 60 Glucose 105 Calcium 7.6 L Impressions: Renal Ultrasound 12/06/16 23:06 IMPRESSION: Nonspecific prominence of the right renal collecting system which may indicate mild hydronephrosis/ hydroureter or mild dilation. Otherwise unremarkable bilateral kidneys. KUB X-Ray 12/07/16 00:00 IMPRESSION: As above. Limited or Localized CT 12/07/16 01:59 IMPRESSION: 0.5 cm right mid ureteral stone with low- moderate grade obstruction. Fluoroscopy 12/07/16 05:05 IMPRESSION: As above. Chest X-Ray 12/08/16 12:30 IMPRESSION: SATISFACTORY PLACEMENT RIGHT IJ VENOUS CATHETER. NO COMPLICATION IDENTIFIED. Assessment & Plan - Diagnosis (1) Kidney stone on right side Is this a current diagnosis for this admission?: YesPlan: Patient has had a stent placed. She is growing E. coli from her urine. Gram- negative rods are growing from her blood cultures but the identifications are pending (2) Pyelonephritis Is this a current diagnosis for this admission?: YesPlan: Currently on doripenem. E. coli growing from urine culture. Blood cultures are growing gram-negative rods presumed to be E. coli but will await the culture results. Once the results of the blood cultures are known we can narrow down her antibiotic selection (3) Headache Is this a current diagnosis for this admission?: YesPlan: We will give Fioricet as needed. - Time Time Spent with patient: 25-34 minutes - Inpatient Certification Medical Necessity: Need for IV Antibiotics
[2016-12-09] MEDS: OXYBUTYNIN CHLORIDE 5 MG TABLET PO SCH ×2 (10:47→21:51)
[2016-12-09] MEDS: BUTALB/ACETAMINOPHEN/CAFFEINE 1 TAB EACH PO PRN ×3 (10:54→21:50)
[2016-12-09] MEDS: HYDROCODONE/ACETAMINOPHEN 5-325 MG TABLET PO PRN ×3 (10:54→21:51)
[2016-12-09] MEDS: NICOTINE 7 MG/24 HR PATCH.TD24 TD PRN (10:57)
[2016-12-09] MEDS: ONDANSETRON 4 MG TAB.RAPDIS PO PRN (15:25)
[2016-12-09] MEDS ORDERED: KETOROLAC TROMETHAMINE INJ/PF 30 MG/1 ML SDV IV ONE (18:30)
[2016-12-10] MEDS: POTASSI CL 20 MEQ/1/2NS 1L 1000 ML IV PRN (02:19)
[2016-12-10] MEDS: ONDANSETRON 4 MG TAB.RAPDIS PO PRN (04:00)
[2016-12-10] MEDS: ACETAMINOPHEN 325 MG TABLET PO PRN ×3 (04:00→23:52)
[2016-12-10] MEDS: DORIPENEM 500 MG in NORMAL SALINE 100 ML IV SCH (05:05)
[2016-12-10] MEDS: BUTALB/ACETAMINOPHEN/CAFFEINE 1 TAB EACH PO PRN ×3 (05:12→14:19)
[2016-12-10] MEDS: HYDROCODONE/ACETAMINOPHEN 5-325 MG TABLET PO PRN ×3 (05:12→14:15)
[2016-12-10 06:37] LABS: ABSOLUTE EOSINOPHILS # (AUTO) 0.1 10^3/uL (0.0-0.6); ABSOLUTE LYMPHOCYTES (AUTO) 0.4 10^3/uL (0.5-4.7); ABSOLUTE MONOCYTES (AUTO) 0.5 10^3/uL (0.1-1.4); ABSOLUTE NEUT (AUTO) 4.4 10^3/uL (1.7-8.2); BASOPHILS % (AUTO) 0.3 % (0-2); EOSINOPHILS % (AUTO) 1.5 % (0-6); HEMATOCRIT 34.2 % (36.0-47.0); HEMOGLOBIN 11.4 g/dL (12.0-15.5); LYMPHOCYTES % (AUTO) 7.4 % (13-45); MEAN CORPUSCULAR HGB CONC 33.2 g/dL (32.0-36.0); MEAN CORPUSCULAR VOLUME 93 fl (80-97); MONOCYTES % (AUTO) 8.7 % (3-13); RED BLOOD COUNT 3.67 10^6/uL (3.72-5.28); RED CELL DISTRIBUTION WIDTH 13.3 % (11.5-14.0); SEGMENTED NEUTROPHILS % (AUTO) 82.1 % (42-78); WHITE BLOOD COUNT 5.4 10^3/uL (4.0-10.5)
[2016-12-10 06:48] LABS: ANION GAP 8 (5-19); BLOOD UREA NITROGEN 8 mg/dL (7-20); CALCIUM 7.8 mg/dL (8.4-10.2); CARBON DIOXIDE 25 mmol/L (22-30); CHLORIDE 106 mmol/L (98-107); CREATININE RESULT 0.87 mg/dL (0.52-1.25); GLUCOSE 109 mg/dL (75-110); POTASSIUM 3.6 mmol/L (3.6-5.0); SODIUM 139.3 mmol/L (137-145)
[2016-12-10] MEDS: PHENAZOPYRIDINE HCL 200 MG TABLET PO PRN (09:59)
[2016-12-10] MEDS: OXYBUTYNIN CHLORIDE 5 MG TABLET PO SCH ×2 (09:59→21:42)
[2016-12-10] MEDS: NICOTINE 7 MG/24 HR PATCH.TD24 TD PRN (10:22)
--- NOTE | 2016-12-10 10:34 | PDOC PROGRESS REPORT ---
Subjective Progress Note for:: 12/10/16 Subjective:: Patient complains of headache back pain and leg pains. No nausea or vomiting. No diarrhea. No bowel movements for several days. Still having fever. Positive chills at times. No cough nor shortness of breath. Physical Exam Vital Signs: Temp Pulse Resp BP Pulse Ox 98.6 F 92 19 130/76 H 95 12/10/16 07:21 12/10/16 07:21 12/10/16 07:21 12/10/16 07:21 12/10/16 07:21 Intake & Output 12/09/16 12/10/16 12/11/16 06:59 06:59 06:59 Intake Total 2824 3440 240 Output Total 1950 4150 900 Balance 872 -421 -301 General appearance: PRESENT: no acute distress, obese Head exam: PRESENT: normocephalic Eye exam: PRESENT: EOMI Mouth exam: PRESENT: moist, neck supple Neck exam: ABSENT: JVD Respiratory exam: PRESENT: clear to auscultation kenton. ABSENT: rhonchi, wheezes Cardiovascular exam: PRESENT: RRR. ABSENT: gallop GI/Abdominal exam: PRESENT: normal bowel sounds, soft. ABSENT: distended Extremities exam: ABSENT: pedal edema Neurological exam: PRESENT: alert, awake, oriented to situation Skin exam: PRESENT: dry, warm. ABSENT: cyanosis Results Laboratory Results: 12/10/16 06:15 12/10/16 06:15 12/10/16 12/10/16 06:15 06:15 WBC 5.4 RBC 3.67 L Hgb 11.4 L Hct 34.2 L MCV 93 MCH 31.0 MCHC 33.2 RDW 13.3 Plt Count 116 L Seg Neutrophils % 82.1 H Lymphocytes % 7.4 L Monocytes % 8.7 Eosinophils % 1.5 Basophils % 0.3 Absolute Neutrophils 4.4 Absolute Lymphocytes 0.4 L Absolute Monocytes 0.5 Absolute Eosinophils 0.1 Absolute Basophils 0.0 Sodium 139.3 Potassium 3.6 Chloride 106 Carbon Dioxide 25 Anion Gap 8 BUN 8 Creatinine 0.87 Est GFR ( Amer) > 60 Est GFR (Non-Af Amer) > 60 Glucose 109 Calcium 7.8 L Impressions: Renal Ultrasound 12/06/16 23:06 IMPRESSION: Nonspecific prominence of the right renal collecting system which may indicate mild hydronephrosis/ hydroureter or mild dilation. Otherwise unremarkable bilateral kidneys. KUB X-Ray 12/07/16 00:00 IMPRESSION: As above. Limited or Localized CT 12/07/16 01:59 IMPRESSION: 0.5 cm right mid ureteral stone with low- moderate grade obstruction. Fluoroscopy 12/07/16 05:05 IMPRESSION: As above. Chest X-Ray 12/08/16 12:30 IMPRESSION: SATISFACTORY PLACEMENT RIGHT IJ VENOUS CATHETER. NO COMPLICATION IDENTIFIED. Assessment & Plan - Diagnosis (1) E coli bacteremia Is this a current diagnosis for this admission?: Yes (2) Pyelonephritis Is this a current diagnosis for this admission?: Yes (3) Kidney stone on right side Is this a current diagnosis for this admission?: Yes (4) Headache Qualifiers: Headache type: tension-type Headache chronicity pattern: unspecified pattern Is this a current diagnosis for this admission?: Yes - Time Time Spent with patient: 25-34 minutes - Plan Summary Plan Summary: Patient continues to have fever. We will continue IV antibiotics at this time. In the meantime cultures came back and organism is sensitive to ceftriaxone. We will switch antibiotic to Rocephin and DC doripenem. Try muscle relaxants for back pain as well as her headache. Continue analgesics. Continue supportive care.
[2016-12-10] MEDS: MORPHINE SULFATE 10 MG/ML INJ IV PRN ×3 (11:22→21:42)
[2016-12-10] MEDS ORDERED: CEFTRIAXONE 1 GM/D5W RTU 1 GM/50 ML RTUPB IV ONE (11:30)
[2016-12-10] MEDS: CYCLOBENZAPRINE HCL 10 MG TABLET PO SCH ×2 (14:15→21:42)
[2016-12-11] MEDS: MORPHINE SULFATE 10 MG/ML INJ IV PRN ×3 (01:50→20:21)
[2016-12-11] MEDS: CYCLOBENZAPRINE HCL 10 MG TABLET PO SCH ×3 (06:20→21:54)
[2016-12-11 06:57] LABS: ANION GAP 8 (5-19); BLOOD UREA NITROGEN 10 mg/dL (7-20); CALCIUM 7.7 mg/dL (8.4-10.2); CARBON DIOXIDE 30 mmol/L (22-30); CHLORIDE 104 mmol/L (98-107); CREATININE RESULT 0.87 mg/dL (0.52-1.25); GLUCOSE 112 mg/dL (75-110); POTASSIUM 3.3 mmol/L (3.6-5.0); SODIUM 142.3 mmol/L (137-145)
--- NOTE | 2016-12-11 09:58 | PDOC PROGRESS REPORT ---
Subjective Progress Note for:: 12/11/16 Subjective:: Headache, back pain and leg pains improved. No nausea or vomiting. No diarrhea. No cough or shortness of breath. No sinus congestion or sore throat. Still having fever. Positive chills at times. Physical Exam Vital Signs: Temp Pulse Resp BP Pulse Ox 98.7 F 89 20 154/86 H 96 12/11/16 07:21 12/11/16 07:21 12/11/16 07:21 12/11/16 07:21 12/11/16 07:21 Intake & Output 12/10/16 12/11/16 12/12/16 06:59 06:59 06:59 Intake Total 3440 2810 Output Total 4150 3700 Balance -710 -890 General appearance: PRESENT: no acute distress, cooperative, obese Head exam: PRESENT: normocephalic Eye exam: PRESENT: EOMI Mouth exam: PRESENT: moist, neck supple Neck exam: ABSENT: JVD Respiratory exam: PRESENT: clear to auscultation kenton - Anteriorly. ABSENT: rhonchi, wheezes Cardiovascular exam: PRESENT: RRR. ABSENT: gallop GI/Abdominal exam: PRESENT: normal bowel sounds, soft. ABSENT: distended Extremities exam: ABSENT: pedal edema Neurological exam: PRESENT: alert, awake, oriented to person, oriented to place , oriented to time, oriented to situation Skin exam: PRESENT: dry, warm. ABSENT: cyanosis Results Laboratory Results: 12/10/16 06:15 12/11/16 06:20 12/11/16 06:20 Sodium 142.3 Potassium 3.3 L Chloride 104 Carbon Dioxide 30 Anion Gap 8 BUN 10 Creatinine 0.87 Est GFR ( Amer) > 60 Est GFR (Non-Af Amer) > 60 Glucose 112 H Calcium 7.7 L Impressions: Renal Ultrasound 12/06/16 23:06 IMPRESSION: Nonspecific prominence of the right renal collecting system which may indicate mild hydronephrosis/ hydroureter or mild dilation. Otherwise unremarkable bilateral kidneys. KUB X-Ray 12/07/16 00:00 IMPRESSION: As above. Limited or Localized CT 12/07/16 01:59 IMPRESSION: 0.5 cm right mid ureteral stone with low- moderate grade obstruction. Fluoroscopy 12/07/16 05:05 IMPRESSION: As above. Chest X-Ray 12/08/16 12:30 IMPRESSION: SATISFACTORY PLACEMENT RIGHT IJ VENOUS CATHETER. NO COMPLICATION IDENTIFIED. Assessment & Plan - Diagnosis (1) E coli bacteremia Is this a current diagnosis for this admission?: Yes (2) Pyelonephritis Is this a current diagnosis for this admission?: Yes (3) Kidney stone on right side Is this a current diagnosis for this admission?: Yes (4) Headache Qualifiers: Headache type: tension-type Headache chronicity pattern: unspecified pattern Is this a current diagnosis for this admission?: Yes - Time Time Spent with patient: 25-34 minutes - Plan Summary Plan Summary: We are going to obtain a renal ultrasound. We will likewise obtain a chest x- ray. We will repeat blood cultures as well as urine culture. We will discontinue the ceftriaxone and put the patient back on carbapenem.
[2016-12-11] MEDS ORDERED: CEFTRIAXONE 1 GM/D5W RTU 1 GM/50 ML RTUPB IV SCH (10:00)
[2016-12-11] MEDS ORDERED: IMIPENEM/CILASTATIN SODIUM INJ 500 MG VIAL IV SCH (10:00)
[2016-12-11] MEDS ORDERED: VANCOMYCIN HCL INJ 1000 MG VIAL IV SCH (10:00)
[2016-12-11] MEDS: POTASSIUM CHLORIDE 10 MEQ TABLET.SA PO SCH ×2 (10:12→13:11)
[2016-12-11] MEDS: OXYBUTYNIN CHLORIDE 5 MG TABLET PO SCH ×2 (10:12→21:54)
--- NOTE | 2016-12-11 11:54 | RADIOLOGY REPORT (SQ) ---
EXAM DESCRIPTION: CHEST SINGLE VIEW COMPLETED DATE/TIME: 12/11/2016 11:40 am REASON FOR STUDY: fever COMPARISON: 12/08/2016. NUMBER OF VIEWS: One view. TECHNIQUE: Single frontal radiographic view of the chest acquired. LIMITATIONS: None. FINDINGS: LUNGS AND PLEURA: Suspect minimal areas of subsegmental atelectasis. No pneumothorax. No large pleural effusion. MEDIASTINUM AND HILAR STRUCTURES: No masses. Contour normal. HEART AND VASCULAR STRUCTURES: Heart normal in size. Normal vasculature. BONES: No acute findings. HARDWARE: Right IJ line remains in place, tip to the cavoatrial junction. OTHER: No other significant finding. IMPRESSION: Minimal areas of suspected subsegmental atelectasis. TECHNICAL DOCUMENTATION: JOB ID: [id number] [employer]- All Rights Reserved
[2016-12-11] MEDS: IMIPENEM/CILASTATIN SODIUM 500 MG in NORMAL SALINE 100 ML IV SCH ×2 (12:11→17:14)
--- NOTE | 2016-12-11 12:36 | RADIOLOGY REPORT (SQ) ---
EXAM DESCRIPTION: U/S RETROPERITON LTD COMPLETED DATE/TIME: 12/11/2016 12:25 pm REASON FOR STUDY: hydronephrosis, perinephric abscess A41.51 SEPSIS DUE TO ESCHERICHIA COLI E. COLI N13.39 OTHER HYDRONEPHROSIS COMPARISON: 12/06/2016 TECHNIQUE: Dynamic and static grayscale images acquired of the kidneys and bladder and recorded on P ACS. Additional selected color Doppler and spectral images recorded. LIMITATIONS: None. FINDINGS: RIGHT KIDNEY: Normal size. Normal echogenicity. No solid or suspicious masses. Mild hydro nephrosis. No calcifications. LEFT KIDNEY: Normal size. Normal echogenicity. No solid or suspicious masses. Mild hydronephrosis. No calcifications. BLADDER: No masses. OTHER FINDINGS: No other significant finding. IMPRESSION: Mild bilateral hydronephrosis. No renal calculi. TECHNICAL DOCUMENTATION: JOB ID: [id number] [employer]- All Rights Reserved
[2016-12-11] MEDS: VANCOMYCIN HCL 1,250 MG in DEXTROSE 5%-WATER 250 ML IV SCH (13:06)
--- NOTE | 2016-12-11 21:05 | RADIOLOGY REPORT (SQ) ---
EXAM DESCRIPTION: CT ABD/PELVIS WITH IV ONLY COMPLETED DATE/TIME: 12/11/2016 8:14 pm REASON FOR STUDY: perinephric abscess A41.51 SEPSIS DUE TO ESCHERICHIA COLI E. COLI N13.39 OTHER H YDRONEPHROSIS COMPARISON: Ultrasound 12/11/2016 TECHNIQUE: CT scan of the abdomen and pelvis performed using helical scanning technique with dynamic intravenous contrast injection. No oral contrast. Images reviewed with lung, soft tissue, and bone windows. Reconstructed coronal and sagittal MPR images reviewed. Delayed images for evaluation of the urinary system also acquired. All images stored on PACS. All CT scanners at this facility use dose modulation, iterative reconstruction, and/or weight based d osing when appropriate to reduce radiation dose to as low as reasonably achievable (ALARA). [facility]: Dose Right [facility]: CareDose [facility]: Dose Right [facility]: Teradose 4D [facility]: [employer] (G&R) CONTRAST TYPE AND DOSE: contrast/concentration: Isovue 370.00 mg/ml; Total Contrast Delivered: 100.0 ml; Total Saline Delivered: 45.0 ml RENAL FUNCTION: GFR > 60. RADIATION DOSE: 39.27. LIMITATIONS: None. FINDINGS: LOWER CHEST: Basilar atelectasis. LIVER: Normal size. No masses or dilated ducts. SPLEEN: Normal size. No focal lesions. PANCREAS: No masses. No significant calcifications. No adjacent inflammation or peripancreatic fluid collections. Pancreatic duct not dilated. GALLBLADDER: Surgically absent. ADRENAL GLANDS: No significant masses or asymmetry. RIGHT KIDNEY AND URETER: Diffuse renal edema with heterogeneous enhancement. Indwelling ureteral st ent. No hydronephrosis or hydroureter. LEFT KIDNEY AND URETER: No solid masses. No significant calcifications. No hydronephrosis or hydr oureter. AORTA AND VESSELS: No aneurysm. No dissection. Renal arteries, SMA, celiac without stenosis. RETROPERITONEUM: No retroperitoneal adenopathy, hemorrhage or masses. BOWEL AND PERITONEAL CAVITY: No masses or inflammatory changes. No free fluid or peritoneal masses. APPENDIX: Normal. PELVIS: No mass or free fluid. Normal bladder. ABDOMINAL WALL: No masses. No hernias. BONES: No significant or acute findings. OTHER: No other significant finding. IMPRESSION: Right-sided pyelonephritis. No abscess. No obstruction. Bibasilar atelectasis. TECHNICAL DOCUMENTATION: JOB ID: [id number] Quality ID # [id number]: Final reports with documentation of one or more dose reduction techniques (e.g., Au tomated exposure control, adjustment of the mA and/or kV according to patient size, use of iterative reconstruction technique) 2010 [employer]- All Rights Reserved
[2016-12-12] MEDS: IMIPENEM/CILASTATIN SODIUM 500 MG in NORMAL SALINE 100 ML IV SCH ×5 (00:31→23:56)
[2016-12-12] MEDS: MORPHINE SULFATE 10 MG/ML INJ IV PRN ×2 (00:34→21:54)
[2016-12-12] MEDS: VANCOMYCIN HCL 1,250 MG in DEXTROSE 5%-WATER 250 ML IV SCH ×2 (01:40→13:02)
[2016-12-12] MEDS: CYCLOBENZAPRINE HCL 10 MG TABLET PO SCH ×3 (06:23→21:33)
[2016-12-12 06:48] LABS: ANION GAP 8 (5-19); BLOOD UREA NITROGEN 12 mg/dL (7-20); CALCIUM 8.4 mg/dL (8.4-10.2); CARBON DIOXIDE 27 mmol/L (22-30); CHLORIDE 106 mmol/L (98-107); CREATININE RESULT 0.76 mg/dL (0.52-1.25); GLUCOSE 117 mg/dL (75-110); POTASSIUM 3.9 mmol/L (3.6-5.0); SODIUM 141.4 mmol/L (137-145)
[2016-12-12] MEDS: OXYBUTYNIN CHLORIDE 5 MG TABLET PO SCH ×2 (09:51→21:33)
--- NOTE | 2016-12-12 10:48 | PDOC PROGRESS REPORT ---
Subjective Progress Note for:: 12/12/16 Subjective:: No chills or fever at this time. No nausea or vomiting. No shortness of breath. Minimal cough. No PND orthopnea. No diarrhea still. Feeling much better today. Physical Exam Vital Signs: Temp Pulse Resp BP Pulse Ox 98.1 F 86 16 153/89 H 96 12/12/16 07:15 12/12/16 07:15 12/12/16 07:15 12/12/16 07:15 12/12/16 07:15 Intake & Output 12/11/16 12/12/16 12/13/16 06:59 06:59 06:59 Intake Total 2810 2837 Output Total 3700 1200 Balance -890 1637 Weight 93.9 kg General appearance: PRESENT: no acute distress, cooperative, morbidly obese Head exam: PRESENT: normocephalic Mouth exam: PRESENT: moist, neck supple Neck exam: ABSENT: JVD Respiratory exam: PRESENT: clear to auscultation [place] Cardiovascular exam: PRESENT: RRR. ABSENT: gallop GI/Abdominal exam: PRESENT: soft. ABSENT: distended, tenderness Extremities exam: ABSENT: pedal edema Neurological exam: PRESENT: alert, awake, oriented to situation Skin exam: PRESENT: dry, warm. ABSENT: cyanosis Results Laboratory Results: 12/10/16 06:15 12/12/16 06:00 12/12/16 06:00 Sodium 141.4 Potassium 3.9 Chloride 106 Carbon Dioxide 27 Anion Gap 8 BUN 12 Creatinine 0.76 Est GFR ( Amer) > 60 Est GFR (Non-Af Amer) > 60 Glucose 117 H Calcium 8.4 Impressions: KUB X-Ray 12/07/16 00:00 IMPRESSION: As above. Limited or Localized CT 12/07/16 01:59 IMPRESSION: 0.5 cm right mid ureteral stone with low- moderate grade obstruction. Fluoroscopy 12/07/16 05:05 IMPRESSION: As above. Abdomen/Pelvis CT 12/11/16 00:00 IMPRESSION: Right-sided pyelonephritis. No abscess. No obstruction. Bibasilar atelectasis. Chest X-Ray 12/11/16 00:00 IMPRESSION: Minimal areas of suspected subsegmental atelectasis. Renal Ultrasound 12/11/16 00:00 IMPRESSION: Mild bilateral hydronephrosis. No renal calculi. Assessment & Plan - Diagnosis (1) E coli bacteremia Is this a current diagnosis for this admission?: Yes (2) Pyelonephritis Is this a current diagnosis for this admission?: Yes (3) Kidney stone on right side Is this a current diagnosis for this admission?: Yes (4) Headache Qualifiers: Headache type: tension-type Headache chronicity pattern: unspecified pattern Is this a current diagnosis for this admission?: Yes - Time Time Spent with patient: 15-24 minutes - Plan Summary Plan Summary: Patient's fever most likely related to postoperative atelectasis. Continue current antibiotics. If the patient remains afebrile in the morning plan discharging home on quinolones orally.
[2016-12-13] MEDS: VANCOMYCIN HCL 1,250 MG in DEXTROSE 5%-WATER 250 ML IV SCH ×2 (02:00→14:38)
[2016-12-13] MEDS: MORPHINE SULFATE 10 MG/ML INJ IV PRN (02:09)
[2016-12-13] MEDS: CYCLOBENZAPRINE HCL 10 MG TABLET PO SCH ×2 (06:04→14:39)
[2016-12-13] MEDS: IMIPENEM/CILASTATIN SODIUM 500 MG in NORMAL SALINE 100 ML IV SCH ×3 (06:04→17:12)
[2016-12-13] MEDS: OXYBUTYNIN CHLORIDE 5 MG TABLET PO SCH (10:32)
--- NOTE | 2016-12-13 13:34 | PDOC DISCHARGE SUMMARY ---
General - Admit/Disc Date/PCP Admission Date/Primary Care Provider: 12/07/16 11:28 Discharge Date: 12/13/16 - Discharge Diagnosis (1) E coli bacteremia Is this a current diagnosis for this admission?: Yes (2) Pyelonephritis Is this a current diagnosis for this admission?: Yes (3) Kidney stone on right side Is this a current diagnosis for this admission?: Yes (4) Headache Is this a current diagnosis for this admission?: Yes - Additional Information Resuscitation Status: Full Code Discharge Diet: Regular Discharge Activity: Activity As Tolerated, Balance Activity w/Rest Home Medications: Acidoph/L.bulg/Bif.b/S.thermop [Bacid Caplet] 1 each PO BID #16 tablet 12/13/16 Hydrocodone/Acetaminophen [Craig 5-325 mg Tablet] 1 tab PO Q4HP PRN #20 tablet 12/13/16 Levofloxacin [Levaquin 750 mg Tablet] 750 mg PO DAILY #8 tab 12/13/16 Oxybutynin Chloride [Ditropan 5 mg Tablet] 5 mg PO Q12 #60 tablet 12/13/16 Additional Information: Follow-up final results of repeat blood cultures outpatient with primary care physician. History of Present Illness Patient complains of: Flank pain History of Present Illness: PEYTON JONES is a 41 year old female has no chronic past medical history except for congenital deafness who presented with flank pain and fever and was found to have a kidney stone. The patient was admitted by urology and a stent was placed. Blood culture showing gram-negative last bacteremia. The hospitalist service has been consulted for management of bacteremia and other medical conditions. The patient today denies any complaints other than feeling nauseous and having flank pain. Hospital Course Hospital Course: The patient was admitted by urology. Patient apparently developed positive blood cultures. Patient likewise has fever. Patient underwent cystoscopy and placement of a right ureteral stent. Medical service was consulted and eventually the patient was transferred to the medical service. She was started on broad-spectrum antibiotic with carbapenem. Patient culture grew E. coli both on blood and urine culture. This was sensitive to quinolones as well as cephalosporins. Patient's fever however persisted therefore repeat cultures were performed and so far were negative. Renal ultrasound as well as CT of the abdomen and pelvis were done revealing no abscess formation. It did reveal atelectases on this CT scan. A chest x-ray likewise showed similar findings. Patient was placed on incentive spirometry and eventually the patient's fever resolved. In terms of the patient's discomfort, she was placed on analgesics with narcotics and muscle relaxants. The patient improved the rest of the hospital stays unremarkable. She requested to be discharged and therefore she was advised to follow-up with urology as well as with her primary care physician in about a week. Physical Exam Vital Signs: Temp Pulse Resp BP Pulse Ox 98.2 F 88 18 134/77 H 99 12/13/16 10:57 12/13/16 10:57 12/13/16 10:57 12/13/16 10:57 12/13/16 10:57 Intake & Output 12/12/16 12/13/16 12/14/16 06:59 06:59 06:59 Intake Total 2837 3050 Output Total 1200 2250 Balance 1637 800 Weight 93.9 kg 94 kg General appearance: PRESENT: no acute distress Eye exam: PRESENT: conjunctiva pink, EOMI Mouth exam: PRESENT: moist, neck supple Neck exam: ABSENT: JVD Respiratory exam: PRESENT: clear to auscultation kenton Cardiovascular exam: PRESENT: RRR. ABSENT: gallop, systolic murmur GI/Abdominal exam: PRESENT: soft. ABSENT: distended, tenderness Extremities exam: ABSENT: pedal edema Neurological exam: PRESENT: alert, awake, oriented to person, oriented to place , oriented to time, oriented to situation Skin exam: PRESENT: dry, warm. ABSENT: cyanosis Results Laboratory Results: 12/10/16 06:15 12/12/16 06:00 12/11/16 09:15 Clean Catch Midstream Urine Culture - Final NO GROWTH 2 DAYS Impressions: KUB X-Ray 12/07/16 00:00 IMPRESSION: As above. Limited or Localized CT 12/07/16 01:59 IMPRESSION: 0.5 cm right mid ureteral stone with low- moderate grade obstruction. Fluoroscopy 12/07/16 05:05 IMPRESSION: As above. Abdomen/Pelvis CT 12/11/16 00:00 IMPRESSION: Right-sided pyelonephritis. No abscess. No obstruction. Bibasilar atelectasis. Chest X-Ray 12/11/16 00:00 IMPRESSION: Minimal areas of suspected subsegmental atelectasis. Renal Ultrasound 06/14/17 00:00 IMPRESSION: Mild bilateral hydronephrosis. No renal calculi. Qualifiers PATEINT BEING DISCHARGED WITH ANY OF THE FOLLOWING DIAGNOSIS?: No Plan Discharge Plan: Follow-up with primary care physician in 1 week. Follow-up with urologist Dr. Hardy in 1-2 weeks. Time Spent: Less than 30 Minutes
[2016-12-13 16:54] VITALS: BP 130/69
== END 2016-12-13 17:51 | disposition home or self-care (01) | DRG 872 ==
LOC: ER 18:35 → EH 12-07 04:03 → UNDOADMIN 12-07 04:03 → 5 12-07 06:53 → EH 12-07 06:53 → 5 12-07 11:28 → INTOOBSV 12-07 11:28 → EH 12-07 11:28 → OBSVTOIN 12-07 11:28
PROVIDERS: ADMIT Urology; ATTEND Urology
PROC: 0T768DZ Dilation of Right Ureter with Intraluminal Device, Via Natural or Artificial Opening Endoscopic (ICD-10-PCS; principal; 2016-12-07 05:00)
PROC: 02HV33Z Insertion of Infusion Device into Superior Vena Cava, Percutaneous Approach (ICD-10-PCS; 2016-12-08)
PROC: B548ZZA Ultrasonography of Superior Vena Cava, Guidance (ICD-10-PCS; 2016-12-08)
DX: R78.81 Bacteremia (principal); N20.2 Calculus of kidney with calculus of ureter; N12 Tubulo-interstitial nephritis, not specified as acute or chronic; B96.20 Unspecified Escherichia coli [E. coli] as the cause of diseases classified elsewhere; R51 Headache; H90.5 Unspecified sensorineural hearing loss; Z90.49 Acquired absence of other specified parts of digestive tract; F17.210 Nicotine dependence, cigarettes, uncomplicated; Z88.8 Allergy status to other drugs, medicaments and biological substances
CPT/HCPCS: 36415; 71010; 71020; 74000; 74177; 76380; 76770; 76775; 80048; 80053; 81001; 81025; 85025; 85027; 87040; 87077; 87086; 87088; 87186; 910; 94799; 96365; 96375; 99285; C1751; C1758; C2617; G0378; J0696; J0743; J1100; J1267; J1642; J1885; J2250; J2270; J2405; J2704; J3010; J3370; J3480; J3490; J7030; J7060; S0119

== ENCOUNTER 2016-12-20 14:24 | Emergency (ER) | payer MEDICARE, MEDICAID ==
--- NOTE | 2016-12-20 15:20 | ER Document Report ---
ED Medical Screen (RME) - General TRAVEL OUTSIDE OF THE [place] IN LAST 30 DAYS: No <ALEX SAHU - Last Filed: 12/20/16 15:35> <DOE TAYLOR - Last Filed: 12/21/16 14:50> - General Chief Complaint: Pain With Urination Stated Complaint: UNABLE TO URINATE Time Seen by Provider: 12/20/16 15:15 Notes: Patient is a 41 year old female presenting to the ED for decreased urination. Patient was recently discharged after being admitted to the hospital for a kidney stone. Patient had a stent placed on the right side while she was admitted. Patient has has decreased urination and increased pain. Patient also has had some hematuria. Patient denies any fevers. Patient is having pelvic pain on the right side and pain across her lower back. Patient denies any history of back pain. Patient is hard of hearing and lip-reads. (ALEX SAHU) - Related Data Allergies/Adverse Reactions: hydrocodone Adverse Reaction (Severe, Verified 12/20/16 14:31) nausea/vomiting Past Medical History - Past Medical History Cardiac Medical History: Denies: Hx Coronary Artery Disease, Hx Heart Attack, Hx Hypertension Pulmonary Medical History: Denies: Hx Asthma, Hx Bronchitis, Hx COPD, Hx Pneumonia Neurological Medical History: Reports: Hx Seizures - last one yrs ago. Denies: Hx Cerebrovascular Accident Renal/ Medical History: Denies: Hx Peritoneal Dialysis Musculoskeltal Medical History: Denies Hx Arthritis Psychiatric Medical History: Denies: Hx Depression Past Surgical History: Reports: Hx Cholecystectomy - Immunizations Hx Diphtheria, Pertussis, Tetanus Vaccination: No <ALEX SAHU - Last Filed: 12/20/16 15:35> Physical Exam <ALEX SAHU - Last Filed: 12/20/16 15:35> <DOE TAYLOR - Last Filed: 12/21/16 14:50> - Vital signs Vitals: Temp Pulse Resp BP Pulse Ox 98.2 F 103 H 18 146/89 H 93 12/20/16 14:31 12/20/16 14:31 12/20/16 14:31 12/20/16 14:31 12/20/16 14:31 - Notes Notes: GENERAL: appears uncomfortable, alert. LUNGS: Clear to auscultation bilaterally, no wheezes, rhonchi, or rales. No respiratory distress. HEART: Regular rate and rhythm. ABDOMINAL: tender and pain to the right pelvic region BACK: tenderness to palpation over the parasacral musculature (ALEX SAHU) Course <ALEX SAHU - Last Filed: 12/20/16 15:35> - Laboratory Result Diagrams: 12/20/16 18:08 12/20/16 19:19 <DOE TAYLOR - Last Filed: 12/21/16 14:50> - Re-evaluation Re-evalutation: 12/20/16 15:24 Presents emergency department with chief complaint of kidney infection. Patient was discharged from the hospital last Friday had a stent placed on the and was discharged on the had Tylenol with IV antibiotics. Dr. Hobbs urology saw her. The CT scan showed a 0.5 cm right mid ureteral stone she was discharged home on Levaquin probiotics oxybutynin and [place]. She states that since Friday she has had decreased urination and the pain is escalated to the point where she cannot control it anymore. Follow-up appointments to see on Friday. She says she is nauseated and vomiting associated with blood in the urine. No fevers chills cough chest pain or shortness of breath on examination she is mildly tachycardic afebrile no acute abdominal guarding rebound rigidity her pain is on the flank areas actually down in the lower sacral area across the lower part of the back and paralumbar. Went ahead and ordered her IV fluids Toradol Zofran oral Percocet laboratory evaluation and she is to be seen and evaluated the back for further assessment. 12/20/16 15:26 I personally performed the services described in the documentation reviewed the documentation recorded by my scribe in my presence and it accurately and completely records my words and actions (DOE TAYLOR) - Vital Signs Vital signs: Temp Pulse Resp BP Pulse Ox 99.1 F 80 16 122/77 94 12/20/16 22:43 12/20/16 22:43 12/20/16 22:43 12/20/16 22:43 12/20/16 22:43 - Laboratory Laboratory results interpreted by me: 12/20/16 12/20/16 12/20/16 15:25 19:19 21:36 AST 54 H ALT 76 H Alkaline Phosphatase 311 H Urine Protein 100 H 30 H Urine Blood LARGE H LARGE H Ur Leukocyte Esterase LARGE H LARGE H Doctor's Discharge <ALEX SAHU - Last Filed: 12/20/16 15:35> <DOE TAYLOR - Last Filed: 12/21/16 14:50> - Discharge Clinical Impression: Dysuria Condition: Stable Disposition: HOME, SELF-CARE Additional Instructions: Urinalysis is consistent with a urinary tract infection, we have a culture growing. Your remaining labs are normal. Follow up with your Urologist in the morning. Return to the ED for any concerning or worsening symptoms - abdominal or back pain, vomiting, fever, etc. Prescriptions: Morphine Sulfate [Morphine Ir 15 Mg Tablet] 15 mg PO Q4HP PRN #12 tablet PRN Reason: Sulfamethoxazole/Trimethoprim [Bactrim Ds Tablet] 1 each PO BID #14 tablet Scribe Documentation - Scribe Written by Kanwal:: Kanwal Richards 12/20/16 15:48 acting as scribe for :: CLAUDIA <ALEX SAHU - Last Filed: 12/20/16 15:35>
[2016-12-20] MEDS ORDERED: KETOROLAC TROMETHAMINE INJ/PF 30 MG/1 ML SDV IV ONE ×2 (15:24→19:16)
[2016-12-20] MEDS ORDERED: ONDANSETRON HCL INJ/PF 4 MG/2 ML SDV IV ONE ×2 (15:24→19:16)
[2016-12-20] MEDS ORDERED: RINGERS SOLUTION,LACTATED 1,000 ML IV ONE ×2 (15:24→19:16)
[2016-12-20] MEDS ORDERED: OXYCODONE-ACETAMINOPHEN 5-325 MG TABLET PO ONE (15:24)
[2016-12-20 16:35] LABS: APPEARANCE,URINE CLOUDY; BILIRUBIN,URINE NEGATIVE (NEGATIVE); GLUCOSE, URINE NEGATIVE (NEGATIVE); KETONES,URINE NEGATIVE (NEGATIVE); URINE SPECIFIC GRAVITY 1.017
[2016-12-20 16:36] LABS: LEUKOCYTE ESTERASE,URINE LARGE (NEGATIVE); NITRITE,URINE NEGATIVE (NEGATIVE); PROTEIN,URINE 100 mg/dL (NEGATIVE); UROBILINOGEN,URINE NEGATIVE mg/dL (<2.0)
[2016-12-20 16:40] LABS: BACTERIA,URINE TRACE /HPF; RBC,URINE 50-100 /HPF
[2016-12-20 16:41] LABS: WHITE BLOOD CELL CASTS, URINE RARE /LPF
--- NOTE | 2016-12-20 18:11 | ER Document Report ---
ED GI/ - General Mode of Arrival: Ambulatory Information source: Patient TRAVEL OUTSIDE OF THE [place] IN LAST 30 DAYS: No - HPI Patient complains to provider of: Pelvic pain, Other - Pain and burning with urination Onset: Other - She was recently discharged with pyelonephritis and kidney stones. She recently had stents placed for the kidney stone. She just completed her Levaquin for her pyelonephritis. Timing/Duration: Worse Quality of pain: Burning, Pressure, Stabbing Severity at maximum: Severe Severity in ED: Severe Pain Level: 5 Location: Suprapubic, Vaginal Associated symptoms: Dysuria, Nausea, Urinary frequency, Urinary urgency, Other - Burning with urination Exacerbated by: Other - Patient Relieved by: Denies Similar symptoms previously: Yes Recently seen / treated by doctor: Yes <PRUDENCIO LEVI - Last Filed: 12/20/16 19:30> <JUSTIN GRACIA - Last Filed: 12/21/16 04:14> - General Chief Complaint: Pain With Urination Stated Complaint: UNABLE TO URINATE Time Seen by Provider: 12/20/16 15:15 Notes: 41-year-old female presents to ED (PRUDENCIO LEVI) - Related Data Allergies/Adverse Reactions: hydrocodone Adverse Reaction (Severe, Verified 12/20/16 14:31) nausea/vomiting Past Medical History - General Information source: Patient - Social History Smoking Status: Current Every Day Smoker Cigarette use (# per day): Yes - 1 Cigarette a day Chew tobacco use (# tins/day): No Smoking Education Provided: Yes - Less than 1 minute Frequency of alcohol use: None Drug Abuse: None Lives with: Spouse/Significant other Family History: CAD, CVA, Hyperlipidemia, Hypertension, Malignancy Patient has suicidal ideation: No Patient has homicidal ideation: No - Past Medical History Cardiac Medical History: Reports: None Pulmonary Medical History: Reports: None Neurological Medical History: Reports: Hx Seizures - last one yrs ago Endocrine Medical History: Reports: None Renal/ Medical History: Reports: Hx Kidney Stones Malignancy Medical History: Reports: None GI Medical History: Reports: Other - Umbilical hernia Musculoskeltal Medical History: Reports None Skin Medical History: Reports Hx Psoriasis Psychiatric Medical History: Reports: None Traumatic Medical History: Reports: None Infectious Medical History: Reports: None Past Surgical History: Reports: Hx Cholecystectomy, Hx Kidney (Renal Surgery) - Stent due to kidney stones, Hx Umbilical Hernia, Other - No mesh due to an umbilical hernia - Immunizations Hx Diphtheria, Pertussis, Tetanus Vaccination: No <PRUDENCIO LEVI - Last Filed: 12/20/16 19:30> Review of Systems - Review of Systems Constitutional: No symptoms reported EENT: No symptoms reported Cardiovascular: No symptoms reported Respiratory: No symptoms reported Gastrointestinal: Nausea Genitourinary: Burning, Dysuria, Frequency, Flank pain, Pain, Urgency Female Genitourinary: No symptoms reported Musculoskeletal: No symptoms reported Skin: No symptoms reported Hematologic/Lymphatic: No symptoms reported Neurological/Psychological: No symptoms reported <PRUDENCIO LEVI - Last Filed: 12/20/16 19:30> Physical Exam - Vital signs Interpretation: Normal - General General appearance: Appears well, Alert - HEENT Head: Normocephalic, Atraumatic Eyes: Normal Pupils: PERRL - Respiratory Respiratory status: No respiratory distress Chest status: Nontender Breath sounds: Normal Chest palpation: Normal - Cardiovascular Rhythm: Regular Heart sounds: Normal auscultation Murmur: No - Abdominal Inspection: Normal Distension: No distension Bowel sounds: Normal Tenderness: Tender - Suprapubic area Organomegaly: No organomegaly - Back Back: Normal, CVA tenderness - Right - Extremities General upper extremity: Normal inspection, Nontender, Normal color, Normal ROM , Normal temperature General lower extremity: Normal inspection, Nontender, Normal color, Normal ROM , Normal temperature, Normal weight bearing. No: Otis's sign - Neurological Neuro grossly intact: Yes Cognition: Normal Orientation: AAOx4 [place] Coma Scale Eye Opening: Spontaneous Rebecca Coma Scale Verbal: Oriented [place] Coma Scale Motor: Obeys Commands Rebecca Coma Scale Total: 15 Speech: Normal Motor strength normal: LUE, RUE, LLE, RLE Sensory: Normal - Psychological Associated symptoms: Normal affect, Normal mood - Skin Skin Temperature: Warm Skin Moisture: Dry Skin Color: Normal <PRUDENCIO LEVI - Last Filed: 12/20/16 19:30> Course - Laboratory Result Diagrams: 12/20/16 18:08 12/20/16 18:08 <PRUDENCIO LEVI - Last Filed: 12/20/16 19:30> - Laboratory Result Diagrams: 12/20/16 18:08 12/20/16 19:19 <JUSTIN GRACIA - Last Filed: 12/21/16 04:14> - Re-evaluation Re-evalutation: 12/20/16 19:37 Report given to Justin SOTELO concerning patient's history physical and complaint. Medications reordered as they had timed out on the nurse before they were given. She was ordered morphine, Toradol, Zofran, and IV fluids. ( PRUDENCIO LEVI) 12/20/16 Patient comfortable on my examination, soft abdomen, no CVA tenderness noted, no tachycardia, hypotension, or fever. No leukocytosis, normal renal functioning, urinalysis was obtained using straight catheter. Shows blood, some white blood cells, patient reports pain is worst with urination. Patient given Rocephin, report given to me with Bactrim recommendation, her previous urine sample shows sensitivity to this. Attempted to call her Urologist Dr. De La Cruz at [facility], however patient and significant other are unwilling to wait for response, request to leave, state they will follow up with them today. Agreed to discharge at this time with return precautions. They state understanding and agreement. (JUSTIN GRACIA) - Vital Signs Vital signs: Temp Pulse Resp BP Pulse Ox 99.1 F 80 16 122/77 94 12/20/16 22:43 12/20/16 22:43 12/20/16 22:43 12/20/16 22:43 12/20/16 22:43 - Laboratory Laboratory results interpreted by me: 12/20/16 12/20/16 12/20/16 15:25 19:19 21:36 AST 54 H ALT 76 H Alkaline Phosphatase 311 H Urine Protein 100 H 30 H Urine Blood LARGE H LARGE H Ur Leukocyte Esterase LARGE H LARGE H Discharge <PRUDENCIO LEVI - Last Filed: 12/20/16 19:30> <JUSTIN GRACIA - Last Filed: 12/21/16 04:14> - Discharge Clinical Impression: Dysuria Condition: Stable Disposition: HOME, SELF-CARE Additional Instructions: Urinalysis is consistent with a urinary tract infection, we have a culture growing. Your remaining labs are normal. Follow up with your Urologist in the morning. Return to the ED for any concerning or worsening symptoms - abdominal or back pain, vomiting, fever, etc. Prescriptions: Morphine Sulfate [Morphine Ir 15 Mg Tablet] 15 mg PO Q4HP PRN #12 tablet PRN Reason: Sulfamethoxazole/Trimethoprim [Bactrim Ds Tablet] 1 each PO BID #14 tablet
[2016-12-20 18:31] LABS: ABSOLUTE BASOPHILS # (AUTO) 0.1 10^3/uL (0.0-0.2); ABSOLUTE EOSINOPHILS # (AUTO) 0.3 10^3/uL (0.0-0.6); ABSOLUTE LYMPHOCYTES (AUTO) 2.4 10^3/uL (0.5-4.7); ABSOLUTE MONOCYTES (AUTO) 0.7 10^3/uL (0.1-1.4); ABSOLUTE NEUT (AUTO) 5.6 10^3/uL (1.7-8.2); EOSINOPHILS % (AUTO) 2.9 % (0-6); HEMATOCRIT 40.5 % (36.0-47.0); HEMOGLOBIN 13.5 g/dL (12.0-15.5); LYMPHOCYTES % (AUTO) 26.3 % (13-45); MEAN CORPUSCULAR HEMOGLOBIN 30.5 pg (27.0-33.4); MEAN CORPUSCULAR HGB CONC 33.2 g/dL (32.0-36.0); MEAN CORPUSCULAR VOLUME 92 fl (80-97); MONOCYTES % (AUTO) 8.2 % (3-13); RED BLOOD COUNT 4.42 10^6/uL (3.72-5.28); RED CELL DISTRIBUTION WIDTH 13.2 % (11.5-14.0); SEGMENTED NEUTROPHILS % (AUTO) 61.6 % (42-78); WHITE BLOOD COUNT 9.1 10^3/uL (4.0-10.5)
[2016-12-20] MEDS ORDERED: MORPHINE SULFATE 10 MG/ML INJ IV ONE (19:16)
[2016-12-20] MEDS ORDERED: SULFAMETHOXAZOLE/TRIMETHOPRIM 800-160 MG TABLET PO ONE (19:38)
[2016-12-20] MEDS ORDERED: CEFTRIAXONE 1 GM/D5W RTU 50 ML IV ONE (19:42)
[2016-12-20 20:02] LABS: ALANINE AMINOTRANSFERASE 76 U/L (9-52); ALBUMIN 3.9 g/dL (3.5-5.0); ALKALINE PHOSPHATASE 311 U/L (38-126); ANION GAP 12 (5-19); ASPARTATE AMINO TRANSFERASE 54 U/L (14-36); BILIRUBIN,DIRECT 0.4 mg/dL (0.0-0.4); BILIRUBIN,TOTAL 0.7 mg/dL (0.2-1.3); BLOOD UREA NITROGEN 16 mg/dL (7-20); CALCIUM 9.3 mg/dL (8.4-10.2); CARBON DIOXIDE 27 mmol/L (22-30); CHLORIDE 103 mmol/L (98-107); CREATININE RESULT 0.79 mg/dL (0.52-1.25); GLUCOSE 94 mg/dL (75-110); POTASSIUM 4.4 mmol/L (3.6-5.0)
[2016-12-20 21:58] LABS: APPEARANCE,URINE SLIGHTLY-CLOUDY; BILIRUBIN,URINE NEGATIVE (NEGATIVE); GLUCOSE, URINE NEGATIVE (NEGATIVE); KETONES,URINE NEGATIVE (NEGATIVE); LEUKOCYTE ESTERASE,URINE LARGE (NEGATIVE); NITRITE,URINE NEGATIVE (NEGATIVE); PROTEIN,URINE 30 mg/dL (NEGATIVE); URINE SPECIFIC GRAVITY 1.015; UROBILINOGEN,URINE NEGATIVE mg/dL (<2.0)
[2016-12-20 22:04] LABS: RBC,URINE 50-100 /HPF; WBC,URINE 20-30 /HPF
[2016-12-20 22:47] VITALS: BP 122/77
== END 2016-12-20 22:47 | disposition home or self-care (01) ==
LOC: ER 14:24
DX: R30.0 Dysuria (principal); R10.2 Pelvic and perineal pain; R35.0 Frequency of micturition; R31.9 Hematuria, unspecified; N20.0 Calculus of kidney; M54.5 Low back pain; Z96.0 Presence of urogenital implants; F17.210 Nicotine dependence, cigarettes, uncomplicated; Z86.19 Personal history of other infectious and parasitic diseases; Z90.49 Acquired absence of other specified parts of digestive tract
CPT/HCPCS: 99284; 51701; 96375; 96365; 96368; 36415; 87040; 87086; 85025; 80053; 81001; J1885; J2270; J2405; A9270; J7120; J0696

== ENCOUNTER 2016-12-26 10:58 | Day surgery (SDC) | payer MEDICARE, MEDICAID ==
[~2016-12-26 10:58] MED LIST: CEFAZOLIN 1 GM/D5W RTU 1 GM/50 ML RTUPB IV PRN
[2016-12-26] MEDS ORDERED: ALBUTEROL SULFATE 0.083% NEB 2.5 MG/3 ML AMPUL NEB ONE (11:48)
[2016-12-26] MEDS ORDERED: SCOPOLAMINE HYDROBROMIDE 1.5 MG PATCH.TD72 ONE (11:58)
[2016-12-26] MEDS ORDERED: ONDANSETRON HCL INJ/PF 4 MG/2 ML SDV ONE ×2 (11:58→12:13)
[2016-12-26] MEDS ORDERED: FAMOTIDINE INJ/PF 20 MG/2 ML SDV IV ONE (11:59)
[2016-12-26] MEDS ORDERED: HYDROMORPHONE HCL INJ/PF 2 MG/ML AMPULE ONE (12:12)
[2016-12-26] MEDS ORDERED: EPHEDRINE SULFATE INJ 50 MG/1 ML AMPULE ONE (12:13)
[2016-12-26] MEDS ORDERED: FENTANYL CITRATE INJ/PF 100 MCG/2 ML AMPUL ONE ×2 (12:13)
[2016-12-26] MEDS ORDERED: DEXAMETHASONE SOD PHOSPHATE INJ 4 MG/1 ML VIAL ONE (12:13)
[2016-12-26] MEDS ORDERED: MIDAZOLAM 2 MG/2 ML INJ ONE (12:13)
[2016-12-26] MEDS ORDERED: PROPOFOL INJ 200 MG/20 ML VIAL IV ONE (12:14)
[2016-12-26] MEDS ORDERED: IBUPROFEN INJ 800 MG/8 ML VIAL IV ONE (12:14)
[2016-12-26 12:31] LABS: HEMATOCRIT 41.2 % (36.0-47.0); HEMOGLOBIN 13.8 g/dL (12.0-15.5); HGB HCT DIFFERENCE 0.2; MEAN CORPUSCULAR HEMOGLOBIN 30.4 pg (27.0-33.4); MEAN CORPUSCULAR HGB CONC 33.4 g/dL (32.0-36.0); MEAN CORPUSCULAR VOLUME 91 fl (80-97); RED BLOOD COUNT 4.53 10^6/uL (3.72-5.28); RED CELL DISTRIBUTION WIDTH 13.1 % (11.5-14.0); WHITE BLOOD COUNT 7.5 10^3/uL (4.0-10.5)
[2016-12-26 12:49] LABS: ANION GAP 13 (5-19); BLOOD UREA NITROGEN 13 mg/dL (7-20); CALCIUM 9.5 mg/dL (8.4-10.2); CARBON DIOXIDE 24 mmol/L (22-30); CHLORIDE 104 mmol/L (98-107); CREATININE RESULT 0.85 mg/dL (0.52-1.25); GLUCOSE 100 mg/dL (75-110); POTASSIUM 4.4 mmol/L (3.6-5.0); SODIUM 140.5 mmol/L (137-145)
[2016-12-26] MEDS ORDERED: MORPHINE SULFATE 10 MG/ML INJ IV PRN (13:37)
[2016-12-26] MEDS ORDERED: MEPERIDINE HCL/PF INJ 25 MG/1 ML DISP.SYRIN IV PRN (13:37)
[2016-12-26] MEDS ORDERED: FENTANYL CITRATE INJ/PF 100 MCG/2 ML AMPUL IV PRN ×2 (13:37)
[2016-12-26] MEDS ORDERED: PROMETHAZINE HCL INJ 25 MG/1 ML VIAL IV PRN (13:37)
[2016-12-26] MEDS ORDERED: DIPHENHYDRAMINE HCL 50 MG/ML VIAL IV PRN (13:37)
[2016-12-26] MEDS: ACETAMINOPHEN 100 ML IV ONE ×2 (14:15→14:20)
--- NOTE | 2016-12-26 14:27 | RADIOLOGY REPORT (SQ) ---
EXAM DESCRIPTION: KUB/ABDOMEN (SINGLE VIEW) COMPLETED DATE/TIME: 12/26/2016 1:42 pm REASON FOR STUDY: RT CYSTO LITHOTRIPSY N20.2 CALCULUS OF KIDNEY WITH CALCULUS OF URETER COMPARISON: None. FLUOROSCOPY TIME: Total fluoroscopy time was 1 minutes 41 seconds. 1 images saved to PACS. TECHNIQUE: Intra-operative images acquired during surgical procedure to evaluate progress. NUMBER OF IMAGES: 1 LIMITATIONS: None. FINDINGS: Fluoroscopy was provided for intraoperative procedure. Please refer to the operative repo rt for complete discussion. IMPRESSION: IMAGE(S) OBTAINED DURING PROCEDURE. COMMENT: Quality ID [id number]: Final reports for procedures using fluoroscopy that document radiation exp osure indices, or exposure time and number of fluorographic images (if radiation exposure indices are not available) Please consult full operative report of the attending physician for description of the procedure. TECHNICAL DOCUMENTATION: JOB ID: [id number] [employer]- All Rights Reserved
--- NOTE | 2016-12-26 14:28 | RADIOLOGY REPORT (SQ) ---
EXAM DESCRIPTION: NO CHG FLUORO COMPLETE DATE/TIME: 12/26/2016 1:42 pm REASON FOR STUDY: RT CYSTO LITHOTRIPSY N20.2 CALCULUS OF KIDNEY WITH CALCULUS OF URETER FINDINGS: Please see combined report for performance of procedure and radiologic supervision and int erpretation. IMPRESSION: Please see combined report for performance of procedure and radiologic supervision and i nterpretation.
[2016-12-26] MEDS ORDERED: HYDROCODONE/ACETAMINOPHEN 5-325 MG TABLET ONE (14:38)
[2016-12-26 16:01] VITALS: BP 119/77
--- NOTE | 2016-12-27 07:49 | OPERATIVE REPORT E ---
Operative Report NAME: PEYTON JONES : 1975 AGE: 41Y DATE OF SURGERY: 12/26/2016 ROOM: PREOPERATIVE DIAGNOSES: 1. RIGHT URETERAL STONE. 2. RIGHT KIDNEY STONE. POSTOPERATIVE DIAGNOSES: 1. RIGHT URETERAL STONE. 2. CALCIFICATION IN A RIGHT RENAL PAPILLA (NO KIDNEY STONE PER SE). PROCEDURE: 1. Cystoscopy with right ureteroscopy and laser lithotripsy. 2. Basket extraction of stone fragments. 3. Right pyelogram. SURGEON: LINH KAPLAN M.D. NSH TEACHER: None. ANESTHESIA: General. SPECIMENS: Kidney stone fragments which were sent for analysis. BLEEDING: None. COMPLICATIONS: None. INDICATIONS: The patient is a 41-year-old lady who had an E. coli bacteremia secondary to a UTI and she also had an obstructing right proximal ureteral calculus. A ureteral stent was inserted approximately 3 weeks ago. She was recently treated for another UTI but most likely the pyuria noted was secondary to a stent and not an actual infection. She is being brought to the OR today for ureteroscopy with laser lithotripsy for right ureteral stone. I will also look in her kidney, and if she has a right kidney stone, I will try and remove that as well. Various options for treatment as well as risks and benefits were discussed. Potential complications that were discussed included but were not limited to bleeding, infection, failure to cure the problem, need for additional surgery, injury to the ureter or kidney, need for a repeat stent. The patient appeared to understand the various options for treatment, as well as risks and benefits. She wished to proceed with the proposed surgery. OPERATION: After the patient was identified in the preop holding area, she was brought to the operating room. Timeout was performed for the correct patient, side of procedure, and procedure was confirmed. She was then given general anesthesia. She was next carefully positioned in a dorsal lithotomy position. She was prepped and draped in the routine sterile manner. A #23 obturator and sheath was inserted into the bladder. A panendoscope was used to identify, and grasping forceps were used to extract a right ureteral stent to the level of the external urethral meatus. A guidewire was threaded up the right ureter. Attempt was made to pass a 12-Samo[place] 35 cm access sheath but there was resistance met at the level of the vessels. Accordingly, a second guidewire was threaded and the ureteroscope was threaded over this. A 6 mm proximal right ureteral stone was noted. Right ureteroscopy with laser lithotripsy and basket stone extraction: A Holmium laser was threaded through the working channel of the ureteroscope and was used to fragment the stone into large several pieces. A Nitinol stone basket was then used to extract each of these fragments. No remaining stone fragments were noted. Right retrograde: A total of 5 mL of Omnipaque was used to opacify the renal collecting system and proximal right ureter. No filling defects were noted. IMPRESSION: A NORMAL-APPEARING RIGHT PYELOGRAM. Flexible scope was then introduced into the kidney and under fluoroscopic guidance, each of the calices were examined. In the middle pole calyx, she had an approximately 3 x 3 mm calcification in a renal papilla which most likely corresponds with the findings seen on CAT scan. No mobile stone was noted in any of the calices in the right kidney. The ureter is is examined as the ureteroscope was removed. No other stones or injury to the ureter was noted. Patient was returned to recovery room in satisfactory condition. PLAN: The patient will come back to our office in 1 week for repeat urinalysis and to discuss stone prevention. DICTATING PHYSICIAN: LINH KAPLAN M.D. [id number] PHY#: [id number] ID: [id number] JOB#: [id number] ACCT: [id number] cc:LINH KAPLAN M.D. >
[2017-01-08 11:41] LABS: CALCIUM OXALATE DIHYDRATE 20 % (.); CALCIUM OXALATE MONOHYDRATE 50 % (.); COLOR Tan (.)
== END 2016-12-26 15:45 | disposition home or self-care (01) ==
LOC: OROUT 10:58
PROVIDERS: ATTEND Urology
PROC: 0TF68ZZ Fragmentation in Right Ureter, Via Natural or Artificial Opening Endoscopic (ICD-10-PCS; 2016-12-26)
PROC: 0T768DZ Dilation of Right Ureter with Intraluminal Device, Via Natural or Artificial Opening Endoscopic (ICD-10-PCS; principal; 2016-12-26 13:00)
DX: N20.2 Calculus of kidney with calculus of ureter (principal); G40.909 Epilepsy, unspecified, not intractable, without status epilepticus; F17.210 Nicotine dependence, cigarettes, uncomplicated; Z87.440 Personal history of urinary (tract) infections; J98.11 Atelectasis
CPT/HCPCS: 52356; 36415; 82370; 85027; 81025; 80048; 74000; 94640; C1758 ×2; J2250; J0690; J1100; J3010; J2405; J2704; S0028; A9270 ×2; J0131; J1741; 918; J1170; J3490

== ENCOUNTER 2017-04-15 07:55 | Emergency (ER) | payer MEDICARE, MEDICAID ==
[2017-04-15] MEDS ORDERED: KETOROLAC TROMETHAMINE INJ/PF 30 MG/1 ML SDV IV ONE (08:25)
[2017-04-15] MEDS ORDERED: NORMAL SALINE 1000 ML 1,000 ML IV ONE (08:25)
[2017-04-15 08:54] LABS: ABSOLUTE EOSINOPHILS # (AUTO) 0.2 10^3/uL (0.0-0.6); ABSOLUTE LYMPHOCYTES (AUTO) 1.4 10^3/uL (0.5-4.7); ABSOLUTE MONOCYTES (AUTO) 0.7 10^3/uL (0.1-1.4); ABSOLUTE NEUT (AUTO) 6.6 10^3/uL (1.7-8.2); BASOPHILS % (AUTO) 0.4 % (0-2); EOSINOPHILS % (AUTO) 2.7 % (0-6); HEMATOCRIT 41.6 % (36.0-47.0); HEMOGLOBIN 14.5 g/dL (12.0-15.5); HGB HCT DIFFERENCE 1.9; MEAN CORPUSCULAR HEMOGLOBIN 31.7 pg (27.0-33.4); MEAN CORPUSCULAR HGB CONC 34.9 g/dL (32.0-36.0); MEAN CORPUSCULAR VOLUME 91 fl (80-97); MONOCYTES % (AUTO) 7.6 % (3-13); RED BLOOD COUNT 4.59 10^6/uL (3.72-5.28); RED CELL DISTRIBUTION WIDTH 12.8 % (11.5-14.0); SEGMENTED NEUTROPHILS % (AUTO) 73.3 % (42-78)
--- NOTE | 2017-04-15 09:07 | ER Document Report ---
ED General - General Chief Complaint: Abdominal Pain >50 Stated Complaint: FLANK PAIN Time Seen by Provider: 04/15/17 08:24 TRAVEL OUTSIDE OF THE [place] IN LAST 30 DAYS: No - HPI Patient complains to provider of: Left flank pain Notes: Patient coming in for evaluation of left flank pain. Patient states ongoing for the last 2 days. Patient states similar to when she had a kidney stone in the past. Patient states no nausea no vomiting no diarrhea. Patient states also she is having trouble with having a bowel movement.Patient resting comfortably upon my evaluation denies fevers or chills. - Related Data Allergies/Adverse Reactions: No Known Allergies Allergy (Unverified 04/15/17 08:41) Past Medical History - Social History Smoking Status: Current Every Day Smoker Chew tobacco use (# tins/day): No Frequency of alcohol use: None Drug Abuse: None Family History: CAD, CVA, Hyperlipidemia, Hypertension, Malignancy - Past Medical History Cardiac Medical History: Denies: Hx Coronary Artery Disease, Hx Heart Attack, Hx Hypertension Pulmonary Medical History: Denies: Hx Asthma, Hx Bronchitis, Hx COPD, Hx Pneumonia Neurological Medical History: Reports: Hx Seizures - NO SEIZURE 5 + YEARS, NO MEDS. Denies: Hx Cerebrovascular Accident Renal/ Medical History: Reports: Hx Kidney Stones. Denies: Hx Peritoneal Dialysis Musculoskeltal Medical History: Denies Hx Arthritis Skin Medical History: Reports Hx Psoriasis Psychiatric Medical History: Denies: Hx Depression Past Surgical History: Reports: Hx Cholecystectomy, Hx Kidney (Renal Surgery) - Stent due to kidney stones, Hx Umbilical Hernia, Other - No mesh due to an umbilical hernia - Immunizations Hx Diphtheria, Pertussis, Tetanus Vaccination: No Review of Systems - Review of Systems Constitutional: No symptoms reported EENT: No symptoms reported Cardiovascular: No symptoms reported Respiratory: No symptoms reported Gastrointestinal: No symptoms reported Genitourinary: Flank pain Female Genitourinary: No symptoms reported Musculoskeletal: No symptoms reported Skin: No symptoms reported Hematologic/Lymphatic: No symptoms reported Neurological/Psychological: No symptoms reported -: Yes All other systems reviewed and negative Physical Exam - Vital signs Vitals: Temp Pulse Resp BP Pulse Ox 98.3 F 100 20 172/91 H 95 04/15/17 08:00 04/15/17 08:00 04/15/17 08:00 04/15/17 08:00 04/15/17 08:00 Interpretation: Normal - General General appearance: Appears well, Alert - HEENT Head: Normocephalic, Atraumatic Eyes: Normal Pupils: PERRL - Respiratory Respiratory status: No respiratory distress Chest status: Nontender Breath sounds: Normal Chest palpation: Normal - Cardiovascular Rhythm: Regular Heart sounds: Normal auscultation Murmur: No - Abdominal Inspection: Normal Distension: No distension Bowel sounds: Normal Tenderness: Nontender Organomegaly: No organomegaly - Back Back: Normal, CVA tenderness - Left CVA tenderness mild - Extremities General upper extremity: Normal inspection, Nontender, Normal color, Normal ROM , Normal temperature General lower extremity: Normal inspection, Nontender, Normal color, Normal ROM , Normal temperature, Normal weight bearing. No: Otis's sign - Neurological Neuro grossly intact: Yes Cognition: Normal Orientation: AAOx4 [place] Coma Scale Eye Opening: Spontaneous Rebecca Coma Scale Verbal: Oriented Rebecca Coma Scale Motor: Obeys Commands [place] Coma Scale Total: 15 Speech: Normal Motor strength normal: LUE, RUE, LLE, RLE Sensory: Normal - Psychological Associated symptoms: Normal affect, Normal mood - Skin Skin Temperature: Warm Skin Moisture: Dry Skin Color: Normal Course - Re-evaluation Re-evalutation: 04/15/17 09:06 Patient coming in for evaluation of flank pain.At this time looks nonseptic. Patient has a history of kidney stones and septic or infected stones. At this time looks nontoxic will check basic lab work evaluate patient for further critical etiology 04/15/17 14:41 Patient sleeping upon reevaluation. Urinalysis is possible signs of UTI will treat discharge home - Vital Signs Vital signs: Temp Pulse Resp BP Pulse Ox 98.3 F 67 20 140/85 H 96 04/15/17 11:17 04/15/17 11:17 04/15/17 11:17 04/15/17 11:17 04/15/17 11:17 - Laboratory Result Diagrams: 04/15/17 08:35 04/15/17 08:35 Laboratory results interpreted by me: 04/15/17 04/15/17 08:35 08:35 Chloride 108 H Glucose 117 H Urine Blood SMALL H Ur Leukocyte Esterase MODERATE H Discharge - Discharge Clinical Impression: UTI (urinary tract infection) Qualifiers: Urinary tract infection type: site unspecified Hematuria presence: without hematuria Qualified Code(s): N39.0 - Urinary tract infection, site not specified Condition: Good Disposition: HOME, SELF-CARE Instructions: Constipation ([facility]), Urinary Tract Infection ([facility]) Additional Instructions: Your laboratory studies today show signs of urinary tract infection. We will treat you with antibiotic called Keflex. Please take as directed. At this time there is no signs of kidney stones. I do believe your pain is probably coming from underlying urinary tract infection. As far as your irregular bowel habits would recommend that he follow-up with your primary care for possible referral to a anesthesia technician.You may try wzan-flb-deizugg stool softener such as that prescribed Prescriptions: Cephalexin Monohydrate [Keflex 500 mg Capsule] 500 mg PO Q6H 7 Days capsule Sennosides/Docusate Sodium [Senna-S Tablet] 1 each PO DAILY #30 tablet Forms: Return to Work
[2017-04-15 09:10] LABS: APPEARANCE,URINE SLIGHTLY-CLOUDY; BILIRUBIN,URINE NEGATIVE (NEGATIVE); GLUCOSE, URINE NEGATIVE (NEGATIVE); KETONES,URINE NEGATIVE (NEGATIVE); LEUKOCYTE ESTERASE,URINE MODERATE (NEGATIVE); NITRITE,URINE NEGATIVE (NEGATIVE); PROTEIN,URINE NEGATIVE (NEGATIVE); URINE SPECIFIC GRAVITY 1.011; UROBILINOGEN,URINE NEGATIVE mg/dL (<2.0)
[2017-04-15 09:19] LABS: ANION GAP 13 (5-19); BLOOD UREA NITROGEN 10 mg/dL (7-20); CALCIUM 9.2 mg/dL (8.4-10.2); CARBON DIOXIDE 23 mmol/L (22-30); CHLORIDE 108 mmol/L (98-107); GLUCOSE 117 mg/dL (75-110); SODIUM 143.7 mmol/L (137-145)
[2017-04-15] MEDS ORDERED: CEFTRIAXONE 1 GM/D5W RTU 1 GM/50 ML RTUPB IV ONE (10:26)
[2017-04-15] MEDS ORDERED: TRAMADOL HCL 50 MG TABLET PO ONE (11:02)
[2017-04-15 11:22] VITALS: BP 140/85
== END 2017-04-15 11:22 | disposition home or self-care (01) ==
LOC: ER 07:55
DX: N39.0 Urinary tract infection, site not specified (principal); R10.9 Unspecified abdominal pain; R19.4 Change in bowel habit; F17.200 Nicotine dependence, unspecified, uncomplicated; Z90.49 Acquired absence of other specified parts of digestive tract; Z87.442 Personal history of urinary calculi
CPT/HCPCS: 99284; 96361; 96375; 96365; 36415; 87086; 85025; 81025; 80048; 81001; J1885; J7030; A9270; J0696

== ENCOUNTER 2017-04-16 20:00 | Inpatient (IN) | payer MEDICARE, MEDICAID ==
[2017-04-16 22:37] LABS: ABSOLUTE EOSINOPHILS # (AUTO) 0.2 10^3/uL (0.0-0.6); ABSOLUTE LYMPHOCYTES (AUTO) 1.5 10^3/uL (0.5-4.7); ABSOLUTE MONOCYTES (AUTO) 0.7 10^3/uL (0.1-1.4); ABSOLUTE NEUT (AUTO) 8.2 10^3/uL (1.7-8.2); BASOPHILS % (AUTO) 0.3 % (0-2); EOSINOPHILS % (AUTO) 1.5 % (0-6); HEMATOCRIT 38.7 % (36.0-47.0); HEMOGLOBIN 13.7 g/dL (12.0-15.5); HGB HCT DIFFERENCE 2.4; LYMPHOCYTES % (AUTO) 14.1 % (13-45); MEAN CORPUSCULAR HEMOGLOBIN 32.1 pg (27.0-33.4); MEAN CORPUSCULAR HGB CONC 35.3 g/dL (32.0-36.0); MEAN CORPUSCULAR VOLUME 91 fl (80-97); MONOCYTES % (AUTO) 6.3 % (3-13); RED BLOOD COUNT 4.27 10^6/uL (3.72-5.28); RED CELL DISTRIBUTION WIDTH 12.6 % (11.5-14.0); SEGMENTED NEUTROPHILS % (AUTO) 77.8 % (42-78); WHITE BLOOD COUNT 10.6 10^3/uL (4.0-10.5)
[2017-04-16 22:44] LABS: APPEARANCE,URINE SLIGHTLY-CLOUDY; BILIRUBIN,URINE NEGATIVE (NEGATIVE); GLUCOSE, URINE NEGATIVE (NEGATIVE); KETONES,URINE 20 mg/dL (NEGATIVE); LEUKOCYTE ESTERASE,URINE SMALL (NEGATIVE); NITRITE,URINE NEGATIVE (NEGATIVE); PROTEIN,URINE NEGATIVE (NEGATIVE); UROBILINOGEN,URINE NEGATIVE mg/dL (<2.0)
[2017-04-16 23:00] LABS: ALANINE AMINOTRANSFERASE 44 U/L (9-52); ALBUMIN 3.6 g/dL (3.5-5.0); ALKALINE PHOSPHATASE 165 U/L (38-126); ANION GAP 12 (5-19); ASPARTATE AMINO TRANSFERASE 30 U/L (14-36); BILIRUBIN,DIRECT 0.4 mg/dL (0.0-0.4); BILIRUBIN,TOTAL 0.7 mg/dL (0.2-1.3); BLOOD UREA NITROGEN 12 mg/dL (7-20); CALCIUM 8.9 mg/dL (8.4-10.2); CARBON DIOXIDE 20 mmol/L (22-30); CHLORIDE 109 mmol/L (98-107); CREATININE RESULT 1.11 mg/dL (0.52-1.25); GLUCOSE 134 mg/dL (75-110); LIPASE 107.6 U/L (23-300); POTASSIUM 3.9 mmol/L (3.6-5.0); SODIUM 140.9 mmol/L (137-145); TOTAL PROTEIN 6.6 g/dL (6.3-8.2)
--- NOTE | 2017-04-16 23:00 | ER Document Report ---
ED GI/ - General Chief Complaint: Abdominal Pain Stated Complaint: CONSTIPATION Time Seen by Provider: 04/16/17 22:49 Notes: The patient is a 42-year-old female, past medical history prior SBO after umbilical hernia repair, presents with worsening left-sided abdominal pain and unable to have a bowel movement for the past 5 days. She is concerned that she has another bowel obstruction. Patient is taking Senokot without much relief for her symptoms. Patient denies nausea, vomiting, flank pain, urinary symptoms , fevers, rash or back pain. TRAVEL OUTSIDE OF THE [place] IN LAST 30 DAYS: No - Related Data Allergies/Adverse Reactions: No Known Allergies Allergy (Unverified 04/15/17 08:41) Past Medical History - General Information source: Patient - Social History Smoking Status: Unknown if Ever Smoked Family History: CAD, CVA, Hyperlipidemia, Hypertension, Malignancy Patient has suicidal ideation: No Patient has homicidal ideation: No - Past Medical History Cardiac Medical History: Denies: Hx Coronary Artery Disease, Hx Heart Attack, Hx Hypertension Pulmonary Medical History: Denies: Hx Asthma, Hx Bronchitis, Hx COPD, Hx Pneumonia Neurological Medical History: Reports: Hx Seizures - NO SEIZURE 5 + YEARS, NO MEDS. Denies: Hx Cerebrovascular Accident Renal/ Medical History: Reports: Hx Kidney Stones. Denies: Hx Peritoneal Dialysis Musculoskeltal Medical History: Denies Hx Arthritis Skin Medical History: Reports Hx Psoriasis Psychiatric Medical History: Denies: Hx Depression Past Surgical History: Reports: Hx Cholecystectomy, Hx Kidney (Renal Surgery) - Stent due to kidney stones, Hx Umbilical Hernia, Other - No mesh due to an umbilical hernia - Immunizations Hx Diphtheria, Pertussis, Tetanus Vaccination: No Review of Systems - Review of Systems Notes: REVIEW OF SYSTEMS: CONSTITUTIONAL: -fevers, -chills EENT: -eye pain, -difficulty swallowing, -nasal congestion CARDIOVASCULAR:-chest pain, -syncope. RESPIRATORY: -cough, -SOB GASTROINTESTINAL: +abdominal pain, - nausea, -vomiting, -diarrhea, +constipation GENITOURINARY: -dysuria, -hematuria MUSCULOSKELETAL: -back pain, -neck pain SKIN: -rash or skin lesions. HEMATOLOGIC: -easy bruising or bleeding. LYMPHATIC: -swollen, enlarged glands. NEUROLOGICAL: -altered mental status or loss of consciousness, -headache, - neurologic symptoms PSYCHIATRIC: -anxiety, -depression. ALL OTHER SYSTEMS REVIEWED AND NEGATIVE. Physical Exam - Vital signs Vitals: Temp Pulse Resp BP Pulse Ox 98.8 F 106 H 18 149/92 H 95 04/16/17 20:33 04/16/17 20:33 04/16/17 20:33 04/16/17 20:33 04/16/17 20:33 - Notes Notes: PHYSICAL EXAMINATION: GENERAL: Crying. HEAD: Atraumatic, normocephalic. EYES: Pupils equal round and reactive to light, extraocular movements intact, sclera anicteric, conjunctiva are normal. ENT: nares patent, oropharynx clear without exudates. Moist mucous membranes. NECK: Normal range of motion, supple without lymphadenopathy LUNGS: Breath sounds clear to auscultation bilaterally and equal. No wheezes rales or rhonchi. HEART: Regular rate and rhythm without murmurs ABDOMEN: Soft, moderate LUQ and LLQ tenderness, absent bowel sounds. No guarding, no rebound. No masses appreciated. EXTREMITIES: Normal range of motion, no pitting or edema. No cyanosis. NEUROLOGICAL: Cranial nerves grossly intact. Normal speech, normal gait. Normal sensory and motor exams. SKIN: Warm, Dry, normal turgor, no rashes or lesions noted. Course - Re-evaluation Re-evalutation: Patient with diffuse abdominal pain. CT scan shows a 6 mm renal stone and an ileus or early developing obstruction. Patient has not had a bowel movement for the past 4 days and has no bowel sounds on physical exam. She is also having multiple episodes of nausea and vomiting while in the emergency room. Patient clinically has a bowel obstruction and will place NG tube and keep patient n.p.o.. Pt also has a left ovarian mass and an ultrasound was obtained, which slowed a hemorrhagic cyst and a hydrosalpinx. Patient provided with a copy of her CT and ultrasound results and knows to obtain a follow-up ultrasound in 6 weeks. 04/17/17 02:[address] Savage (Surgicalist) and he has accepted patient for further monitoring of her developing bowel obstruction. Recommends NGT, NS @ 150 mL/hr and repleting electrolytes. - Vital Signs Vital signs: Temp Pulse Resp BP Pulse Ox 98.8 F 106 H 16 152/77 H 95 04/16/17 20:33 04/16/17 20:33 04/17/17 02:50 04/17/17 02:50 04/17/17 02:50 - Laboratory Result Diagrams: 04/16/17 22:12 04/16/17 22:12 Laboratory results interpreted by me: 04/16/17 04/16/17 04/16/17 22:12 22:12 22:12 WBC 10.6 H Chloride 109 H Carbon Dioxide 20 L Est GFR (Non-Af Amer) 54 L Glucose 134 H Alkaline Phosphatase 165 H Urine Ketones 20 H Urine Blood SMALL H Ur Leukocyte Esterase SMALL H - Diagnostic Test Radiology reviewed: Image reviewed, Reports reviewed Radiology results interpreted by me: CT A/P: 6 mm obstructing calculus at the proximal left ureter with delayed enhancement and contrast excretion at the left kidney. Mildly dilated fluid- filled small bowel loops in the midline abdomen, may represent ileus versus developing obstruction. 6.2 x 3.1 cm cystic lesion at the left adnexa. This can be better characterized with dedicated pelvic ultrasound. US Pelvis: 5.3 cm probable hemorrhagic cyst at the left ovary. Followup pelvic ultrasound in 6 weeks recommended to ensure resolution. Left-sided hydrosalpinx. Discharge - Discharge Clinical Impression: Kidney stone on left side Bowel obstruction Qualifiers: Intestinal obstruction type: unspecified Intestinal obstruction extent: unspecified extent Qualified Code(s): K56.609 - Unspecified intestinal obstruction, unspecified as to partial versus complete obstruction Condition: Stable Disposition: ADMITTED INPATIENT Admitting Provider: Surgicalist - Janette Unit Admitted: Surgical Floor
--- NOTE | 2017-04-16 23:18 | RADIOLOGY REPORT (SQ) ---
EXAM DESCRIPTION: KUB/ABDOMEN (SINGLE VIEW) COMPLETED DATE/TIME: 04/16/2017 11:02 pm REASON FOR STUDY: abdominal pain COMPARISON: None. NUMBER OF VIEWS: One view. TECHNIQUE: Supine radiographic image of the abdomen acquired. LIMITATIONS: None. FINDINGS: BOWEL GAS PATTERN: Multiple gas-filled non-dilated small bowel loops. CALCIFICATIONS: No suspicious calcifications. SOFT TISSUES: No gross mass or suggestion of organomegaly. HARDWARE: None in the abdomen.. BONES: No acute fracture. No worrisome bone lesions. OTHER: No other significant finding. IMPRESSION: NON-SPECIFIC BOWEL GAS PATTERN, multiple gas-filled non-dilated small bowel loops.. TECHNICAL DOCUMENTATION: JOB ID: [id number] [employer]- All Rights Reserved
[2017-04-16] MEDS ORDERED: KETOROLAC TROMETHAMINE INJ/PF 30 MG/1 ML SDV IV ONE (23:20)
[2017-04-16] MEDS ORDERED: MORPHINE SULFATE 10 MG/ML INJ IV ONE (23:20)
--- NOTE | 2017-04-17 00:39 | RADIOLOGY REPORT (SQ) ---
EXAM DESCRIPTION: CT ABD/PELVIS WITH IV ONLY COMPLETED DATE/TIME: 04/17/2017 12:08 am REASON FOR STUDY: diffuse abdominal pain, recent surgery COMPARISON: CT abdomen and pelvis 12/11/2016, 02/27/2016. TECHNIQUE: CT scan of the abdomen and pelvis performed using helical scanning technique with dynamic intravenous contrast injection. No oral contrast. Images reviewed with lung, soft tissue, and bone windows. Reconstructed coronal and sagittal MPR images reviewed. Delayed images for evaluation of the urinary system also acquired. All images stored on PACS. All CT scanners at this facility use dose modulation, iterative reconstruction, and/or weight based d osing when appropriate to reduce radiation dose to as low as reasonably achievable (ALARA). [facility]: Dose Right [facility]: CareDose [facility]: Dose Right [facility]: Teradose 4D [facility]: Lela CONTRAST TYPE AND DOSE: contrast/concentration: Isovue 370.00 mg/ml; Total Contrast Delivered: 100.0 ml; Total Saline Delivered: 64.0 ml RENAL FUNCTION: None required. The patient is less than 50 years old. RADIATION DOSE: Up-to-date CT equipment and radiation dose reduction techniques were employed. CTDIv ol: 19.8 mGy. DLP: 2055 mGy-cm.. LIMITATIONS: None. FINDINGS: LOWER CHEST: No consolidation or pleural effusion. LIVER: Normal size. No masses. No dilated ducts. SPLEEN: Normal size. PANCREAS: No significant calcifications. No adjacent inflammation or peripancreatic fluid collection s. Pancreatic duct not dilated. GALLBLADDER: Surgically absent. ADRENAL GLANDS: No significant masses or asymmetry. RIGHT KIDNEY AND URETER: No significant calcifications. No hydronephrosis or hydroureter. LEFT KIDNEY AND URETER: Mild left-sided perinephric stranding. There is decreased enhancement and d elayed contrast excretion at the left kidney. There is a 6 mm (535 Hounsfield units) obstructing jason culus at the proximal left ureter, at L3-L4 level. Stable subcentimeter hypodense lesion at the left kidney, too small to be adequately characterized. AORTA AND VESSELS: No abdominal aortic aneurysm. RETROPERITONEUM: No retroperitoneal hemorrhage or masses. BOWEL AND PERITONEAL CAVITY: Air-fluid levels are seen within mildly prominent small bowel loops in t he midline abdomen measuring up to 2.6 cm in caliber. APPENDIX: Normal. PELVIS: The urinary bladder is partially decompressed. The uterus is present. There is a 6.2 x 3.1 cm cystic lesion at the left adnexa. ABDOMINAL WALL: No hernias. BONES: Mild multilevel degenerative changes in the spine. IMPRESSION: 6 mm obstructing calculus at the proximal left ureter with delayed enhancement and contr ast excretion at the left kidney. Mildly dilated fluid-filled small bowel loops in the midline abdomen, may represent ileus versus deve loping obstruction. 6.2 x 3.1 cm cystic lesion at the left adnexa. This can be better characterized with dedicated pelvi c ultrasound. TECHNICAL DOCUMENTATION: JOB ID: [id number] Quality ID # [id number]: Final reports with documentation of one or more dose reduction techniques (e.g., Au tomated exposure control, adjustment of the mA and/or kV according to patient size, use of iterative reconstruction technique) 2010 [employer]- All Rights Reserved
[2017-04-17] MEDS ORDERED: MIDAZOLAM 2 MG/2 ML INJ IV ONE (02:22)
[2017-04-17] MEDS ORDERED: ONDANSETRON HCL INJ/PF 4 MG/2 ML SDV IV ONE (02:42)
[2017-04-17] MEDS ORDERED: MORPHINE SULFATE 10 MG/ML INJ IV ONE (02:42)
--- NOTE | 2017-04-17 02:45 | RADIOLOGY REPORT (SQ) ---
EXAM DESCRIPTION: U/S NON OB PEL TV W/DOPPLER COMPLETED DATE/TIME: 04/17/2017 2:09 am REASON FOR STUDY: left ovarian cystic lesion COMPARISON: CT abdomen and pelvis 04/16/2017. TECHNIQUE: Dynamic and static grayscale images acquired of the pelvis via transvaginal approach and recorded on PACS. Additional selected color Doppler and spectral images recorded. LIMITATIONS: None. FINDINGS: UTERUS: Measures 8.9 x 5.5 x 4.5 cm. The uterus appears bicornuate. ENDOMETRIAL STRIPE: The right-sided endometrium measures 9 mm in double thickness, the left-sided end ometrium measures 9 mm in double wall thickness. CERVIX: Measures 2.6 cm in length. Nabothian cyst noted. RIGHT OVARY: Measures 2.3 x 2.2 x 1.2 cm. Flow by Doppler was shown to the right ovary. LEFT OVARY: Measures 5.7 x 6.4 x 4.7 cm. Flow by Doppler was shown to the left ovary. There is a 3. 9 x 5.3 x 3.1 cm cystic area with internal echoes, may represent a hemorrhagic cyst. Tubular fluid-f illed structure is seen extending from the uterus to the left ovary, suggestive of a hydrosalpinx. FREE FLUID: None noted. IMPRESSION: 5.3 cm probable hemorrhagic cyst at the left ovary. Followup pelvic ultrasound in 6 wee ks recommended to ensure resolution. Left-sided hydrosalpinx. TECHNICAL DOCUMENTATION: JOB ID: [id number] 2010 [employer]- All Rights Reserved
[2017-04-17] MEDS: NORMAL SALINE 1000 ML 1,000 ML IV PRN ×2 (02:47→05:18)
--- NOTE | 2017-04-17 03:36 | RADIOLOGY REPORT (SQ) ---
EXAM DESCRIPTION: CHEST SINGLE VIEW COMPLETED DATE/TIME: 04/17/2017 3:17 am REASON FOR STUDY: NGT placement COMPARISON: CT abdomen and pelvis 04/16/2017. Chest x-ray 12/11/2016. EXAM PARAMETERS: NUMBER OF VIEWS: One view. TECHNIQUE: 2 frontal radiographic views of the chest acquired. RADIATION DOSE: NA LIMITATIONS: None. FINDINGS: LUNGS AND PLEURA: No consolidation, pneumothorax or pleural effusion. MEDIASTINUM AND HILAR STRUCTURES: No masses. Contour normal. HEART AND VASCULAR STRUCTURES: Heart normal in size. Normal vasculature. BONES: No acute findings. HARDWARE: Enteric tube with the tip in the left upper quadrant, in the expected location of the gastr ic body. OTHER: Surgical clips in the right upper quadrant. Delayed intravenous contrast excretion at the le ft renal collecting system with mild left-sided hydronephrosis. IMPRESSION: No acute radiographic finding in the chest. Enteric tube with the tip in the left upper quadrant, in the expected location of the gastric body. Delayed intravenous contrast excretion at the left renal collecting system with mild left-sided hydro nephrosis. TECHNICAL DOCUMENTATION: JOB ID: [id number]
--- NOTE | 2017-04-17 04:17 | PDOC H&P ---
History of Present Illness Admission Date/PCP: 04/17/17 02:53 Patient complains of: Abdominal pains with nausea History of Present Illness: PEYTON JONES is a 42 year old female Patient has been complaining of abdominal pains with nausea started about a week ago. She went to the emergency room about 4 days ago and diagnosed to have a UTI. She was given a prescription for Keflex and discharged from the emergency room. However patient's symptoms persisted and last night got worse and went to the ED where CAT scan of the abdomen showed partial small bowel obstruction, left ureteral stone and an adnexal mass. An NG tube was then placed. Past Medical History Cardiac Medical History: Denies: Coronary Artery Disease, Myocardial Infarction, Hypertension Pulmonary Medical History: Denies: Asthma, Bronchitis, Chronic Obstructive Pulmonary Disease (COPD), Pneumonia Neurological Medical History: Reports: Seizures - NO SEIZURE 5 + YEARS, NO MEDS Musculoskeltal Medical History: Denies: Arthritis Skin Medical History: Reports: Psoriasis Psychiatric Medical History: Denies: Depression Hematology: Denies: Anemia Past Surgical History Past Surgical History: Reports: Cholecystectomy, Other - Umbilical hernia repair with mesh, followed SBO with the laparoscopic repai Social History Smoking Status: Unknown if Ever Smoked Frequency of Alcohol Use: None Hx Recreational Drug Use: No Drugs: None Hx Prescription Drug Abuse: No - Advance Directive Resuscitation Status: Full Code Family History Family History: CAD, CVA, Hyperlipidemia, Hypertension, Malignancy Parental Family History Reviewed: Yes - Coronary artery disease and CVA Children Family History Reviewed: No Sibling(s) Family History Reviewed.: No Medication/Allergy Home Medications: Acidoph/L.bulg/Bif.b/S.thermop [Bacid Caplet] 1 each PO BID #16 tablet 12/13/16 Hydrocodone/Acetaminophen [[place] 5-325 mg Tablet] 1 tab PO Q4HP PRN #20 tablet 12/13/16 Morphine Sulfate [Morphine Ir 15 Mg Tablet] 15 mg PO Q4HP PRN #12 tablet Cephalexin Monohydrate [Keflex 500 mg Capsule] 500 mg PO Q6H 7 Days capsule Sennosides/Docusate Sodium [Senna-S Tablet] 1 each PO DAILY #30 tablet 04/15/17 Allergies/Adverse Reactions: No Known Allergies Allergy (Unverified 04/15/17 08:41) Review of Systems Constitutional: PRESENT: other - Denies fever or chills. Eyes: PRESENT: other - Denies visual disturbance Ears: PRESENT: other - Patient is hard of hearing but able to read lips Nose, Mouth, and Throat: PRESENT: other - Denies any sore throat Cardiovascular: PRESENT: other - Denies chest pains Respiratory: PRESENT: cough - Denies shortness of breath, other Gastrointestinal: PRESENT: abdominal pain, nausea, other - Abdominal pains primarily along the left upper and left lower quadrant Genitourinary: PRESENT: other - Denies dysuria Musculoskeletal: PRESENT: other - Denies muscle weakness Integumentary: PRESENT: other - Denies skin rash Neurological: PRESENT: other - Denies weakness or seizures Psychiatric: PRESENT: anxiety Endocrine: PRESENT: other - No pulling polyuria nor polydipsia Hematologic/Lymphatic: PRESENT: other - Denies easy bruisability or lymphadenopathy Physical Exam Vital Signs: Temp Pulse Resp BP Pulse Ox 98.8 F 100 16 137/78 H 95 04/17/17 03:24 04/17/17 03:24 04/17/17 03:24 04/17/17 03:24 04/17/17 03:24 General appearance: PRESENT: hard of hearing, mild distress, obese Head exam: PRESENT: atraumatic, normocephalic Eye exam: PRESENT: conjunctiva pink Ear exam: PRESENT: normal external ear exam Mouth exam: PRESENT: moist, tongue midline Throat exam: PRESENT: other - No postpharyngeal erythema Neck exam: PRESENT: other - No thyromegaly Respiratory exam: PRESENT: clear to auscultation [place] Cardiovascular exam: PRESENT: RRR Pulses: PRESENT: normal carotid pulses Vascular exam: PRESENT: normal capillary refill GI/Abdominal exam: PRESENT: soft, tenderness, other - Mild tenderness in the left upper and left lower quadrant Rectal exam: PRESENT: deferred Extremities exam: PRESENT: other - No edema but has some mild erythematous dry skin on the right lower leg Musculoskeletal exam: PRESENT: full ROM Neurological exam: PRESENT: alert, oriented to person, oriented to place, oriented to time, oriented to situation Psychiatric exam: PRESENT: appropriate affect Skin exam: PRESENT: dry, normal color, warm Results Impressions: KUB X-Ray 04/16/17 22:49 IMPRESSION: NON-SPECIFIC BOWEL GAS PATTERN, multiple gas-filled non-dilated small bowel loops.. Abdomen/Pelvis CT 04/16/17 23:15 IMPRESSION: 6 mm obstructing calculus at the proximal left ureter with delayed enhancement and contrast excretion at the left kidney. Mildly dilated fluid-filled small bowel loops in the midline abdomen, may represent ileus versus developing obstruction. 6.2 x 3.1 cm cystic lesion at the left adnexa. This can be better characterized with dedicated pelvic ultrasound. Transvaginal US 04/17/17 00:58 IMPRESSION: 5.3 cm probable hemorrhagic cyst at the left ovary. Followup pelvic ultrasound in 6 weeks recommended to ensure resolution. Left-sided hydrosalpinx. Chest X-Ray 04/17/17 02:43 IMPRESSION: No acute radiographic finding in the chest. Enteric tube with the tip in the left upper quadrant, in the expected location of the gastric body. Delayed intravenous contrast excretion at the left renal collecting system with mild left-sided hydronephrosis. Assessment & Plan - Diagnosis (1) Bowel obstruction Qualifiers: Intestinal obstruction type: unspecified Intestinal obstruction extent: unspecified extent Qualified Code(s): K56.609 - Unspecified intestinal obstruction, unspecified as to partial versus complete obstruction Is this a current diagnosis for this admission?: Yes (2) Kidney stone on left side Is this a current diagnosis for this admission?: Yes (3) Headache Qualifiers: Headache type: tension-type Headache chronicity pattern: unspecified pattern (4) Kidney stone on right side Is this a current diagnosis for this admission?: Yes (5) UTI (urinary tract infection) Qualifiers: Urinary tract infection type: site unspecified Hematuria presence: without hematuria Qualified Code(s): N39.0 - Urinary tract infection, site not specified - Time Time Spent: 30 to 50 Minutes - Inpatient Certification Based on my medical assessment, after consideration of the patient's comorbidities, presenting symptoms, or acuity I expect that the services needed warrant INPATIENT care.: Yes I certify that my determination is in accordance with my understanding of Medicare's requirements for reasonable and necessary INPATIENT services [42 CFR 412.3e].: Yes Medical Necessity: Need For IV Fluids, Need for Pain Control, Risk of Complication if Not Cared For in Hospital, Risk of Diagnosis Which Will Require Inpatient Eval/Care/Monitoring - Plan Summary Plan Summary: #1 insert insert NG tube 2. Keep n.p.o. 3. IV fluids with normal saline at 1 50 cc an hour 4. Parenteral pain medication on a as needed basis 5. DROP BOARD MAN consultation for pelvic lesion 6. IV antibiotics for a UTI
[2017-04-17] MEDS ORDERED: PHENOL/SODIUM PHENOLATE 100 SPRAY/177 ML BOTTLE PO PRN (08:36)
[2017-04-17] MEDS ORDERED: ONDANSETRON HCL INJ/PF 4 MG/2 ML SDV IV PRN (08:36)
[2017-04-17] MEDS ORDERED: MORPHINE SULFATE 10 MG/ML INJ IV PRN (09:01)
--- NOTE | 2017-04-17 09:01 | PDOC PROGRESS REPORT ---
Subjective Progress Note for:: 04/17/17 Subjective:: Patient complains of left-sided abdominal and flank pain. Patient has had associated dry heaves. She is passing gas but has been having some constipation. She has has a history of kidney stones in the past. She noted that she has had similar pain in the past with the kidney stones. She had a cystoscopic treatment of her right sided kidney stone earlier this year.. Physical Exam Vital Signs: Temp Pulse Resp BP Pulse Ox 97.9 F 82 20 146/82 H 93 04/17/17 07:57 04/17/17 07:57 04/17/17 07:57 04/17/17 07:57 04/17/17 07:57 General appearance: PRESENT: cooperative, mild distress Respiratory exam: PRESENT: chest wall tenderness Cardiovascular exam: PRESENT: RRR GI/Abdominal exam: PRESENT: other - Soft, nondistended, very mild left-sided abdominal tenderness without peritoneal signs. Results Impressions: KUB X-Ray 04/16/17 22:49 IMPRESSION: NON-SPECIFIC BOWEL GAS PATTERN, multiple gas-filled non-dilated small bowel loops.. Abdomen/Pelvis CT 04/16/17 23:15 IMPRESSION: 6 mm obstructing calculus at the proximal left ureter with delayed enhancement and contrast excretion at the left kidney. Mildly dilated fluid-filled small bowel loops in the midline abdomen, may represent ileus versus developing obstruction. 6.2 x 3.1 cm cystic lesion at the left adnexa. This can be better characterized with dedicated pelvic ultrasound. Transvaginal US 04/17/17 00:58 IMPRESSION: 5.3 cm probable hemorrhagic cyst at the left ovary. Followup pelvic ultrasound in 6 weeks recommended to ensure resolution. Left-sided hydrosalpinx. Chest X-Ray 04/17/17 02:43 IMPRESSION: No acute radiographic finding in the chest. Enteric tube with the tip in the left upper quadrant, in the expected location of the gastric body. Delayed intravenous contrast excretion at the left renal collecting system with mild left-sided hydronephrosis. Assessment & Plan - Diagnosis (1) Kidney stone on left side Is this a current diagnosis for this admission?: Yes Plan: Obstructing left kidney ureteral stone. Her urine analysis CT scan and presenting symptoms are consistent with this process. I have re-reviewed the CT scan with radiology and the CT scan is not suspicious for bowel obstruction. I do not think she has a bowel obstruction. Everything points to the kidney stone as the problem. We will DC her NG tube. It has had scant output. I have discussed her case with urology at [facility] and the urology service has agreed to accept the patient in transfer. The patient is agreeable to the transfer as well. Her urologist is no longer working in [place] at our hospital. Ultrasound did demonstrate evidence of a possible hemorrhagic ovarian cyst and she will need STAFF DEVELOPMENT MANAGER follow-up for this process but I do not think this is the etiology of her symptoms.
[2017-04-17] MEDS ORDERED: CEFTRIAXONE 1 GM/D5W RTU 1 GM/50 ML RTUPB IV SCH (10:00)
[2017-04-17] MEDS ORDERED: ACETAMINOPHEN 325 MG TABLET PO PRN (10:56)
[2017-04-17] MEDS ORDERED: NORMAL SALINE 1000 ML 1,000 ML IV PRN (15:20)
--- NOTE | 2017-04-17 15:34 | PDOC CONSULTATION ---
History of Present Illness Admission Date/PCP: 04/17/17 04:53 Patient complains of: abdominal and flank pain, nausea History of Present Illness: PEYTON JONES is a 42 year old female Patient has been complaining of abdominal pains with nausea started about a week ago. She went to the emergency room about 4 days ago and diagnosed to have a UTI. She was given a prescription for Keflex and discharged from the emergency room. However patient's symptoms persisted and last night got worse and went to the ED where CAT scan of the abdomen showed partial small bowel obstruction, left ureteral stone and an adnexal mass. An NG tube was then placed. Past Medical History Cardiac Medical History: Denies: Coronary Artery Disease, Myocardial Infarction, Hypertension Pulmonary Medical History: Denies: Asthma, Bronchitis, Chronic Obstructive Pulmonary Disease (COPD), Pneumonia Neurological Medical History: Reports: Seizures - NO SEIZURE 5 + YEARS, NO MEDS Musculoskeltal Medical History: Denies: Arthritis Skin Medical History: Reports: Psoriasis Psychiatric Medical History: Denies: Depression Social History Smoking Status: Current Every Day Smoker Cigarettes Packs Per Day: 1 Number of Years Smokin Last Time Smoked: 04/15/17 Frequency of Alcohol Use: None Hx Recreational Drug Use: No Drugs: None Hx Prescription Drug Abuse: No - Advance Directive Resuscitation Status: Full Code Family History Family History: CAD, CVA, Hyperlipidemia, Hypertension, Malignancy Parental Family History Reviewed: Yes Children Family History Reviewed: Yes Sibling(s) Family History Reviewed.: Yes Medication/Allergy Home Medications: No Home Medications 04/17/17 Allergies/Adverse Reactions: No Known Allergies Allergy (Unverified 04/15/17 08:41) Physical Exam - Physical Exam Vital Signs: Temp Pulse Resp BP Pulse Ox 97.8 F 94 17 151/87 H 93 04/17/17 11:29 04/17/17 11:29 04/17/17 11:29 04/17/17 11:29 04/17/17 11:29 Result Impressions: KUB X-Ray 04/16/17 22:49 IMPRESSION: NON-SPECIFIC BOWEL GAS PATTERN, multiple gas-filled non-dilated small bowel loops.. Abdomen/Pelvis CT 04/16/17 23:15 IMPRESSION: 6 mm obstructing calculus at the proximal left ureter with delayed enhancement and contrast excretion at the left kidney. Mildly dilated fluid-filled small bowel loops in the midline abdomen, may represent ileus versus developing obstruction. 6.2 x 3.1 cm cystic lesion at the left adnexa. This can be better characterized with dedicated pelvic ultrasound. Transvaginal US 04/17/17 00:58 IMPRESSION: 5.3 cm probable hemorrhagic cyst at the left ovary. Followup pelvic ultrasound in 6 weeks recommended to ensure resolution. Left-sided hydrosalpinx. Chest X-Ray 04/17/17 02:43 IMPRESSION: No acute radiographic finding in the chest. Enteric tube with the tip in the left upper quadrant, in the expected location of the gastric body. Delayed intravenous contrast excretion at the left renal collecting system with mild left-sided hydronephrosis. Assessment & Plan - Plan Summary Plan Summary: patient in the process of transfer to [facility] for Urology intervention. Reviewed patient's images on PACS and discussed results with her. I recommend to follow up with another pelvic sono in 6-8 wks as these cysts will usually resolve without interventions. Possibility of surgery in the case that the cyst does not resolve. Reviewed that if cyst ruptures, the blood leakage into the peritoneum can cause significant pain but it usually resolves within a couple of days.
--- NOTE | 2017-04-17 15:37 | TRANSFER SUMMARY E ---
Transfer Summary NAME: PEYTON JONES : 1975 AGE: 42Y ADMITTED: 04/17/2017 TRANSFERRED: 04/17/2017 DISCHARGE DIAGNOSIS: Left ureterolithiasis obstructive Left ovarian cyst HOSPITAL COURSE: The patient was admitted with a possible diagnosis of small bowel obstruction. However, upon review with the radiologist, it became very evident that she had a left ureterolithiasis with obstruction. In reviewing all of her clinical data, it became very apparent that this was the etiology of her symptoms. She had minimal output from the NG tube and she was passing gas and the NG tube was pulled. She has had a history of right ureteral stone that was removed cystoscopically several months ago. Now, she has 1 on the left with obstructive symptoms. I discussed her case with [facility], who has agreed to take the patient in transfer since we do not have urology electronic communications technician at our hospital. The patient is now being transferred to [facility] in fair condition. 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 Gynecology recommended follow-up in 6 weeks with a repeat ultrasound. TRANSFER MEDICATION: 1. Normal saline at 100 mL/hour. 2. Morphine 3 mg IV q. 4 hours p.r.n. pain. 3. Zofran 4 mg IV q. 4 hours p.r.n. nausea. 4. Rocephin 1 gram IV daily. INSTRUCTIONS: She is currently n.p.o. DICTATING PHYSICIAN: MARY LUDWIG M.D. [id number] PHY#: [id number] ID: [id number] JOB#: [id number] ACCT: [id number] cc:MARY LUDWIG M.D. > MTDD
[2017-04-17 16:48] VITALS: BP 137/82
== END 2017-04-17 17:02 | disposition short-term general hospital (02) | DRG 389 ==
LOC: ER 20:00 → EH 04-17 02:53 → UNDOADMIN 04-17 02:53 → 2N 04-17 04:03 → EH 04-17 04:03 → 2N 04-17 04:53 → INTOOBSV 04-17 04:53 → EH 04-17 04:53 → OBSVTOIN 04-17 15:27
PROVIDERS: ADMIT Surgery; ATTEND Surgery
PROC: 0D9670Z Drainage of Stomach with Drainage Device, Via Natural or Artificial Opening (ICD-10-PCS; principal; 2017-04-17)
DX: K56.609 Unspecified intestinal obstruction, unspecified as to partial versus complete obstruction (principal); N20.1 Calculus of ureter; N39.0 Urinary tract infection, site not specified; N83.202 Unspecified ovarian cyst, left side; L40.9 Psoriasis, unspecified; F17.210 Nicotine dependence, cigarettes, uncomplicated; F41.9 Anxiety disorder, unspecified; G44.209 Tension-type headache, unspecified, not intractable; Z90.49 Acquired absence of other specified parts of digestive tract; Z79.899 Other long term (current) drug therapy; Z82.3 Family history of stroke; Z80.8 Family history of malignant neoplasm of other organs or systems; Z82.49 Family history of ischemic heart disease and other diseases of the circulatory system
CPT/HCPCS: 36415; 71010; 74000; 74177; 76830; 80048; 80053; 81001; 81025; 83690; 85025; 87086; 93976; 96374; 96375; 96376; 99285; G0378; J0696; J1885; J2250; J2270; J2405; J3490; J7030

== ENCOUNTER 2018-08-27 14:19 | Emergency (ER) | payer MEDICARE, MEDICAID ==
--- NOTE | 2018-08-27 15:10 | ER Document Report ---
ED Medical Screen (RME) - General Chief Complaint: Nausea/Vomiting Stated Complaint: COUGH,CONGESTION,NAUSEA Time Seen by Provider: 08/27/18 15:05 Notes: Chief complaint: Cough History of complain:( obtained from----patient) 43 years old female presents today with runny nose nasal congestion postnasal drip cough and wheezing on and off. States [id number] medication is not helping. She has stopped smoking for about 4 months now. Persistent coughing caused a sudden onset of mid abdominal pain and bulging. Since then the pain is persisting. Denies any nausea vomiting diarrhea dysuria frequency. PHYSICAL EXAMINATION: GENERAL: Well-appearing, well-nourished and in no acute distress. Morbid obesity HEAD: Atraumatic, normocephalic. EYES: Pupils equal round and reactive to light, extraocular movements intact, conjunctiva are normal. ENT: Nares patent, oropharynx clear without exudates. Moist mucous membranes. NECK: Normal range of motion, supple without lymphadenopathy LUNGS: Breath sounds clear to auscultation bilaterally and equal. No wheezes rales or rhonchi. HEART: Regular rate and rhythm without murmurs ABDOMEN: Soft, tenderness between the epigastrium and umbilicus, with small ventral hernia, nondistended abdomen. No guarding, no rebound. No masses appreciated. Examination of genitals-deferred Dictation was performed using [employer] voice recognition software TRAVEL OUTSIDE OF THE [place] IN LAST 30 DAYS: No - Related Data Allergies/Adverse Reactions: No Known Allergies Allergy (Verified 08/27/18 14:21) Past Medical History - Past Medical History Cardiac Medical History: Denies: Hx Coronary Artery Disease, Hx Heart Attack, Hx Hypertension Pulmonary Medical History: Denies: Hx Asthma, Hx Bronchitis, Hx COPD, Hx Pneumonia Neurological Medical History: Reports: Hx Seizures - NO SEIZURE 5 + YEARS, NO MEDS. Denies: Hx Cerebrovascular Accident Renal/ Medical History: Reports: Hx Kidney Stones. Denies: Hx Peritoneal Dialysis Musculoskeltal Medical History: Denies Hx Arthritis Skin Medical History: Reports Hx Psoriasis Psychiatric Medical History: Denies: Hx Depression Past Surgical History: Reports: Hx Cholecystectomy, Hx Kidney (Renal Surgery) - Stent due to kidney stones, Hx Umbilical Hernia, Other - Umbilical hernia repair with mesh, followed SBO with the laparoscopic repai - Immunizations Hx Diphtheria, Pertussis, Tetanus Vaccination: No History of Influenza Vaccine for 03/2017 - 08/2017 Season: Unknown Physical Exam - Vital signs Vitals: Temp Pulse Resp BP Pulse Ox 98.6 F 97 16 127/84 H 96 08/27/18 14:49 08/27/18 14:49 08/27/18 14:49 08/27/18 14:49 08/27/18 14:49 Course - Vital Signs Vital signs: Temp Pulse Resp BP Pulse Ox 98.6 F 97 16 127/84 H 96 08/27/18 14:49 08/27/18 14:49 08/27/18 14:49 08/27/18 14:49 08/27/18 14:49
[2018-08-27 16:04] LABS: ABSOLUTE EOSINOPHILS # (AUTO) 0.3 10^3/uL (0.0-0.6); ABSOLUTE LYMPHOCYTES (AUTO) 1.8 10^3/uL (0.5-4.7); ABSOLUTE MONOCYTES (AUTO) 0.5 10^3/uL (0.1-1.4); BASOPHILS % (AUTO) 0.5 % (0-2); EOSINOPHILS % (AUTO) 4.1 % (0-6); HEMATOCRIT 38.3 % (36.0-47.0); HEMOGLOBIN 13.1 g/dL (12.0-15.5); LYMPHOCYTES % (AUTO) 23.7 % (13-45); MEAN CORPUSCULAR HEMOGLOBIN 31.3 pg (27.0-33.4); MEAN CORPUSCULAR HGB CONC 34.2 g/dL (32.0-36.0); MEAN CORPUSCULAR VOLUME 91 fl (80-97); PLATELET COUNT 226 10^3/uL (150-450); SEGMENTED NEUTROPHILS % (AUTO) 64.7 % (42-78); TOTAL CELLS COUNTED % (AUTO) 100 %; WHITE BLOOD COUNT 7.7 10^3/uL (4.0-10.5)
[2018-08-27 16:11] LABS: A TYPE INFLUENZA AG NEGATIVE (NEGATIVE); B INFLUENZA AG NEGATIVE (NEGATIVE)
[2018-08-27 16:22] LABS: ALANINE AMINOTRANSFERASE 55 U/L (9-52); ALBUMIN 4.1 g/dL (3.5-5.0); ALKALINE PHOSPHATASE 158 U/L (38-126); ANION GAP 8 (5-19); ASPARTATE AMINO TRANSFERASE 36 U/L (14-36); BILIRUBIN,DIRECT 0.3 mg/dL (0.0-0.4); BILIRUBIN,TOTAL 0.4 mg/dL (0.2-1.3); BLOOD UREA NITROGEN 11 mg/dL (7-20); CALCIUM 9.4 mg/dL (8.4-10.2); CARBON DIOXIDE 25 mmol/L (22-30); CHLORIDE 109 mmol/L (98-107); GLUCOSE 101 mg/dL (75-110); POTASSIUM 4.1 mmol/L (3.6-5.0); SODIUM 142.4 mmol/L (137-145)
[2018-08-27] MEDS ORDERED: PSEUDOEPHEDRINE HCL 30 MG TABLET PO ONE (16:26)
[2018-08-27] MEDS ORDERED: ALBUTEROL SULFATE 0.083% NEB 2.5 MG/3 ML AMPUL NEB ONE (16:27)
[2018-08-27] MEDS ORDERED: IPRATROPIUM/ALBUTEROL 0.5-2.5 MG/3 ML AMPUL NEB ONE (16:27)
[2018-08-27] MEDS ORDERED: PREDNISONE 20 MG TABLET PO ONE (16:27)
--- NOTE | 2018-08-27 16:29 | ER Document Report ---
HPI - HPI Patient complains to provider of: cough Time Seen by Provider: 08/27/18 15:05 Onset: Last week Onset/Duration: Persistent Quality of pain: Achy Pain Level: 4 Context: Patient presents complaining of cough congestion and wheezing for the past week. Patient states initially she had a fever but that has resolved. Patient does complain of sore throat and vomiting x1 episode today. Patient states that she was coughing and felt a sharp pain with a bulge to the upper abdomen. Patient states that this bulge area is resolved at this time. Patient was concerned that she might have a hernia. Associated Symptoms: Body/muscle aches, Productive cough, Vomiting, Rhinnorhea, Sore throat. denies: Chest pain Exacerbated by: Coughing Relieved by: Remaining still Similar symptoms previously: No Recently seen / treated by doctor: No - ROS ROS below otherwise negative: Yes Systems Reviewed and Negative: Yes All other systems reviewed and negative - CONSTITUTIONAL Constitutional: DENIES: Fever, Chills - EENT EENT: REPORTS: Sore Throat, Congestion - RESPIRATORY Respiratory: REPORTS: Coughing - GASTROINTESTINAL Gastrointestinal: REPORTS: Abdominal Pain, Patient vomiting - URINARY Urinary: DENIES: Dysuria - REPRODUCTIVE Reproductive: DENIES: : - MUSCULOSKELETAL Musculoskeletal: DENIES: Back Pain - DERM Skin Color: Normal Past Medical History - General Information source: Patient - Social History Smoking Status: Former Smoker Chew tobacco use (# tins/day): No Frequency of alcohol use: None Drug Abuse: None 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 Denies: Hx Cerebrovascular Accident Renal/ Medical History: Reports: Hx Kidney Stones. Denies: Hx Peritoneal Dial ysis Musculoskeletal Medical History: Denies Hx Arthritis Skin Medical History: Reports Hx Psoriasis Psychiatric Medical History: Denies: Hx Depression Past Surgical History: Reports: Hx Cholecystectomy, Hx Kidney (Renal Surgery) - Stent due to kidney stones, Hx Umbilical Hernia, Other - Umbilical hernia repair with mesh, followed SBO with the laparoscopic repai - Immunizations Hx Diphtheria, Pertussis, Tetanus Vaccination: No Vertical Provider Document - CONSTITUTIONAL Agree With Documented VS: Yes Exam Limitations: No Limitations General Appearance: WD/WN, No Apparent Distress - INFECTION CONTROL TRAVEL OUTSIDE OF THE .S. IN LAST 30 DAYS: No - HEENT HEENT: Atraumatic, Normocephalic, Pharyngeal Tenderness, Pharyngeal Erythema. negative: Pharyngeal Exudate, Tympanic Membrane Red, Tympanic Membrane Bulging Notes: clear rhinorrhea - NECK Neck: Normal Inspection, Supple. negative: Lymphadenopathy-Left, Lymphadenopathy-Right - RESPIRATORY Respiratory: No Respiratory Distress, Chest Non-Tender, Wheezing - CARDIOVASCULAR Cardiovascular: Regular Rate, Regular Rhythm, No Murmur - GI/ABDOMEN Gastrointestinal: Abdomen Soft, Abdomen Tender - epigastric area with coughing, No Organomegaly Notes: morbidly obese - BACK Back: Normal Inspection - MUSCULOSKELETAL/EXTREMETIES Musculoskeletal/Extremeties: MAEW, FROM - NEURO Level of Consciousness: Awake, Alert, Appropriate Motor/Sensory: No Motor Deficit, No Sensory Deficit - DERM Integumentary: Warm, Dry, No Rash Course - Re-evaluation Re-evalutation: 08/27/18 17:17 Patient with decreased wheezing bilaterally and good air movement. No concern for pneumonia at this time. Rapid strep test negative. Patient able to manage oral secretions, no concern for STAFF COUNSEL. Patient is abdomen is soft, no palpable bulge. No concern for any incarcerated hernia at this time. - Vital Signs Vital signs: Temp Pulse Resp BP Pulse Ox 98.6 F 97 16 127/84 H 96 08/27/18 14:49 08/27/18 14:49 08/27/18 14:49 08/27/18 14:49 08/27/18 14:49 - Laboratory Result Diagrams: 08/27/18 15:49 08/27/18 15:49 Laboratory results interpreted by me: 08/27/18 15:49 Chloride 109 H ALT 55 H Alkaline Phosphatase 158 H 08/27/18 17:18 Labs- Entire Visit 08/27/18 08/27/18 08/27/18 15:49 15:49 15:49 WBC 7.7 RBC 4.20 Hgb 13.1 Hct 38.3 MCV 91 MCH 31.3 MCHC 34.2 RDW 13.0 Plt Count 226 Seg Neutrophils % 64.7 Lymphocytes % 23.7 Monocytes % 7.0 Eosinophils % 4.1 Basophils % 0.5 Absolute Neutrophils 5.0 Absolute Lymphocytes 1.8 Absolute Monocytes 0.5 Absolute Eosinophils 0.3 Absolute Basophils 0.0 Sodium 142.4 Potassium 4.1 Chloride 109 H Carbon Dioxide 25 Anion Gap 8 BUN 11 Creatinine 0.64 Est GFR ( Amer) > 60 Est GFR (Non-Af Amer) > 60 Glucose 101 Calcium 9.4 Total Bilirubin 0.4 Direct Bilirubin 0.3 Neonat Total Bilirubin Not Reportable Neonat Direct Bilirubin Not Reportable Neonat Indirect Bili Not Reportable AST 36 ALT 55 H Alkaline Phosphatase 158 H Total Protein 7.0 Albumin 4.1 Lipase Influenza A (Rapid) NEGATIVE Influenza B (Rapid) NEGATIVE Group A Strep Rapid 08/27/18 08/27/18 15:49 16:20 WBC RBC Hgb Hct MCV MCH MCHC RDW Plt Count Seg Neutrophils % Lymphocytes % Monocytes % Eosinophils % Basophils % Absolute Neutrophils Absolute Lymphocytes Absolute Monocytes Absolute Eosinophils Absolute Basophils Sodium Potassium Chloride Carbon Dioxide Anion Gap BUN Creatinine Est GFR ( Amer) Est GFR (Non-Af Amer) Glucose Calcium Total Bilirubin Direct Bilirubin Neonat Total Bilirubin Neonat Direct Bilirubin Neonat Indirect Bili AST ALT Alkaline Phosphatase Total Protein Albumin Lipase 66.3 Influenza A (Rapid) Influenza B (Rapid) Group A Strep Rapid NEGATIVE - Diagnostic Test Radiology reviewed: Reports reviewed Discharge - Discharge Clinical Impression: Sore throat, Wheezing Upper respiratory infection Qualifiers: URI type: unspecified URI Qualified Code(s): J06.9 - Acute upper respiratory i nfection, unspecified Abdominal pain Qualifiers: Abdominal location: unspecified location Qualified Code(s): R10.9 - Unspecified abdominal pain Condition: Stable Disposition: HOME, SELF-CARE Additional Instructions: Return immediately for any new or worsening symptoms Followup with your primary care provider, call tomorrow to make a followup a ppointment Use saline irrigation kit [id number] to rinse your sinuses to help with congestion symptoms. Be sure to use distilled water if not tap water. Use Mucinex [id number] to thin nasal secretions, use Sudafed pnht-rag-kbnyjal to help with the nasal congestion Prescriptions: Albuterol Sulfate [Proair Hfa Inhalation Aerosol 8.5 gm Mdi] 2 puff IH Q4 PRN #1 mdi PRN Reason: Inhaler,Assist Device,Accesory [Optichamber] 1 each MC Q4 PRN #1 each PRN Reason: Ondansetron HCl [Zofran 4 mg Tablet] 1 - 2 tab PO Q6 PRN #15 tablet PRN Reason: Prednisone [Deltasone 20 mg Tablet] 3 tab PO DAILY 4 Days tablet Forms: Return to Work Referrals: [facility] [Provider Group] - Follow up as needed
--- NOTE | 2018-08-27 16:50 | RADIOLOGY REPORT (SQ) ---
EXAM DESCRIPTION: CHEST 2 VIEWS COMPLETED DATE/TIME: 08/27/2018 4:41 pm REASON FOR STUDY: cough COMPARISON: 12/08/2016 EXAM PARAMETERS: NUMBER OF VIEWS: two views TECHNIQUE: Digital Frontal and Lateral radiographic views of the chest acquired. RADIATION DOSE: NA LIMITATIONS: none FINDINGS: LUNGS AND PLEURA: No opacities, masses or pneumothorax. No pleural effusion. MEDIASTINUM AND HILAR STRUCTURES: No masses or contour abnormalities. HEART AND VASCULAR STRUCTURES: Heart normal size. No evidence for failure. BONES: No acute findings. HARDWARE: None in the chest. OTHER: No other significant finding. IMPRESSION: 1. No significant interval changes since the prior examination dated 12/08/2016. No acu te findings. TECHNICAL DOCUMENTATION: JOB ID: [id number] 2009 [employer]- All Rights Reserved Reading location - IP/workstation name: [email or web address]
[2018-08-27 16:55] LABS: LIPASE 66.3 U/L (23-300)
[2018-08-27 17:29] VITALS: BP 164/96
== END 2018-08-27 17:29 | disposition home or self-care (01) ==
LOC: ER 14:19
DX: J06.9 Acute upper respiratory infection, unspecified (principal); R06.2 Wheezing; R10.9 Unspecified abdominal pain; Z90.49 Acquired absence of other specified parts of digestive tract
CPT/HCPCS: 94640 ×2; 99284; 36415; 87070; 87880; 83690; 85025; 80053; 87804; 71046; A9270 ×4; J7512; J7620

== ENCOUNTER → 2018-10-20 | Outpatient (CLI) | payer MEDICARE, MEDICAID ==
--- NOTE | 2018-10-20 09:24 | WOMENS IMAGING REPORT ---
EXAM DESCRIPTION: 3D SCREENING MAMMO BILAT COMPLETED DATE/TIME: 10/20/2018 8:56 am REASON FOR STUDY: Z12.31 ENCOUNTER FOR SCREENING MAMMOGRAM FOR MALIGNANT NEOPLASM OF BREAST Z12.31 ENCNTR SCREEN MAMMOGRAM FOR MALIGNANT NEOPLASM OF RENETTA COMPARISON: None. TECHNIQUE: Standard craniocaudal and mediolateral oblique views of each breast recorded using digita l acquisition and breast tomosynthesis. LIMITATIONS: None. FINDINGS: RIGHT BREAST MASSES: Questionable focal density in the retroareolar breast, seen on the CC image. CALCIFICATIONS: No new or suspicious calcifications. ARCHITECTURAL DISTORTION: None. DEVELOPING DENSITY: None. ASYMMETRY: Area of asymmetry in the lateral breast. OTHER: No other significant findings. LEFT BREAST MASSES: There is an oval circumscribed mass in the superior retroareolar breast. There are also othe r areas of nodularity most noticeable on the CC image. CALCIFICATIONS: No new or suspicious calcifications. ARCHITECTURAL DISTORTION: None. DEVELOPING DENSITY: None. ASYMMETRY: None noted. OTHER: No other significant findings. Read with the assistance of CAD. .[facility] - R2 Cenova Version 1.3 .[facility] Imaging - R2 Cenova Version 2.1 .[facility] Imaging - R2 Cenova Version 2.4 .[facility] [place] R2 Cenova Version 2.4 .[facility] - R2 [employer] Version 9.2 IMPRESSION: Areas of asymmetry and nodularity in both breasts as well as a circumscribed mass in the left breast. BREAST DENSITY: b. There are scattered areas of fibroglandular density. BIRAD: 0 Incomplete: Needs Additional Imaging Evaluation and/or prior Mammograms for Comparison. RECOMMENDATION: RECOMMENDED FOLLOW-UP: Recommend additional evaluation with compression views of bot h breasts and ultrasound of both breasts. The patient will be contacted for additional imaging. COMMENT: The patient has been notified of the results by letter per [place] requirements. Additional no tification policies are in place for contacting patient with suspicious or incomplete findings. Quality ID #225: The [employer] recommends an annual screening mammogram for women aged 40 years or over. This facility utilizes a reminder system to ensure that all patients receive reminder letters, and/or direct phone calls for appointments. This includes reminders for routine scr eening mammograms, diagnostic mammograms, or other Breast Imaging Interventions when appropriate. Th is patient will be placed in the appropriate reminder system. The [employer] (ACR) has developed recommendations for screening MRI of the breast s in certain patient populations, to be used in conjunction with mammography. Breast MRI surveillanc e may be appropriate for women with more than 20% lifetime risk of developing breast cancer as deter mined by genetic testing, significant family history of the disease, or history of mantle radiation f or Hodgkins Disease. ACR Practice Guidelines 2008. DBT Technology DBT is a type of tomographic mammography. With conventional mammography, overlapping breast tissue ma y make lesions difficult to detect, even with good compression. DBT uses an x-ray tube that rotates a round the breast, taking images at different angles. These images are then combined to create thin sl ices of the breast that the radiologist can view as a 3D reconstruction. The [employer] unit can perform full-field digital mammograms (2D imaging); or DBT (3D imaging); or both, in a combination mode that quickly performs both the mammogram and the tomosynthesis scan while the breast is still compressed. PQRS 6045F: Fluoroscopic imaging is not utilized for breast tomosynthesis. TECHNICAL DOCUMENTATION: FINDING NUMBER: (1) ASSESSMENT: (1) JOB ID: [id number] [email or web address]- All Rights Reserved Reading location - IP/workstation name: [email or web address]
== END ==
LOC: WI 08:02
PROVIDERS: ATTEND Nurse Practitioner Family
DX: Z12.31 Encounter for screening mammogram for malignant neoplasm of breast (principal); N63.42 Unspecified lump in left breast, subareolar; N63.41 Unspecified lump in right breast, subareolar
CPT/HCPCS: 77063; 77067

== ENCOUNTER → 2018-11-04 | Outpatient (CLI) | payer MEDICARE, MEDICAID ==
--- NOTE | 2018-11-04 13:31 | WOMENS IMAGING REPORT ---
EXAM DESCRIPTION: BILAT DIAGNOSTIC MAMMO W/CAD; U/S BREAST UNILAT LIMITED COMPLETED DATE/TIME: 11/04/2018 8:56 am; 11/04/2018 9:44 am REASON FOR STUDY: INCONCLUSSIVE MAMMOGRAM;R92.2; RT BREAST R92.2 R92.2 INCONCLUSIVE MAMMOGRAM COMPARISON: Recent routine mammography TECHNIQUE: Cone compression each breast in 2 projections and straight lateral. LIMITATIONS: None. FINDINGS: RIGHT BREAST MASSES: Persistent 4 mm nodule approximately 2 cm deep to the nipple. CALCIFICATIONS: No new or suspicious calcifications. ARCHITECTURAL DISTORTION: None. DEVELOPING DENSITY: None. ASYMMETRY: Persistent asymmetry upper outer quadrant. OTHER: No other significant findings. LEFT BREAST MASSES: Persistent 2.7 cm well-circumscribed mass slightly deep to the nipple. CALCIFICATIONS: No new or suspicious calcifications. ARCHITECTURAL DISTORTION: None. DEVELOPING DENSITY: None. ASYMMETRY: Asymmetry mid to anterior breast less discrete. OTHER: No other significant findings. BREAST ULTRASOUND: TECHNIQUE: Static and dynamic grayscale images acquired of the right and left breast in the specific areas of clinical/mammographic concern. Selected color Doppler images recorded. ELASTOGRAPHY PERFORMED: No. LIMITATIONS: None. FINDINGS: MASS: On the right in the retroareolar area there is a small cyst corresponding to the nodule on mamm ography. On the left there are multiple wall small simple cysts laterally and large well-circumscrib ed simple cyst retroareolar region corresponding to the mass on mammography. ELASTOGRAPHY CHARACTERISTICS: Not applicable. OTHER: No other significant finding. IMPRESSION: Multiple benign appearing cysts. Largest retroareolar region left breast. BREAST DENSITY: b. There are scattered areas of fibroglandular density. BIRAD: 2 Benign findings. RECOMMENDATION: RECOMMENDED FOLLOW UP: Birads 1 or 2: The patient should resume routine screening . SPECIFIC INTERVENTION/IMAGING/CONSULTATION RECOMMENDED:No additional intervention/ imaging/consultati on needed at this time. COMMUNICATION:The imaging findings were not discussed with the patient. Her referring provider has be en notified of the findings. COMMENT: The patient has been notified of the results by letter per MQSA requirements. Additional no tification policies are in place for contacting patient with suspicious or incomplete findings. Quality ID #225: The [employer] recommends an annual screening mammogram for women aged 40 years or over. This facility utilizes a reminder system to ensure that all patients receive reminder letters, and/or direct phone calls for appointments. This includes reminders for routine scr eening mammograms, diagnostic mammograms, or other Breast Imaging Interventions when appropriate. Th is patient will be placed in the appropriate reminder system. TECHNICAL DOCUMENTATION: FINDING NUMBER: (1) ASSESSMENT: (1) JOB ID: [id number] [employer]- All Rights Reserved Reading location - IP/workstation name: [email or web address]
--- NOTE | 2018-11-04 16:45 | WOMENS IMAGING REPORT ---
EXAM DESCRIPTION: U/S BREAST UNILAT LIMITED COMPLETE DATE/TIME: 11/04/2018 9:44 am REASON FOR STUDY: LT BREAST R92.2 R92.2 INCONCLUSIVE MAMMOGRAM FINDINGS: Please see combined report for performance of procedure and radiologic supervision and int erpretation. IMPRESSION: Please see combined report for performance of procedure and radiologic supervision and i nterpretation. Reading location - IP/workstation name: [email or web address]
== END ==
LOC: WI 08:15
PROVIDERS: ATTEND Nurse Practitioner Family
DX: R92.2 Inconclusive mammogram (principal)
CPT/HCPCS: 76642; 77066

== ENCOUNTER → 2019-12-06 | Outpatient (CLI) | payer MEDICARE, MEDICAID ==
--- NOTE | 2019-12-06 13:49 | WOMENS IMAGING REPORT ---
EXAM DESCRIPTION: 3D SCREENING MAMMO BILAT IMAGES COMPLETED DATE/TIME: 12/06/2019 9:26 am REASON FOR STUDY: Z12.31 ENCOUNTER FOR SCREENING MAMMOGRAM FOR MALIGNANT NEOPLASM OF BREAST Z12.31 ENCNTR SCREEN MAMMOGRAM FOR MALIGNANT NEOPLASM OF RENETTA COMPARISON: Digital diagnostic bilateral mammogram dated 11/04/2018, and digital tomosynthesis bilater al screening mammogram dated 10/20/2018. EXAM PARAMETERS: Standard craniocaudal and mediolateral oblique views of each breast recorded using digital acquisition and breast tomosynthesis. Read with the assistance of CAD. .[facility] - [employer] Version 9.2 LIMITATIONS: None. FINDINGS: Findings present which are benign by mammographic criteria. No suspicious masses, calcific ations or architectural distortion. Pertinent benign findings: Stable masses in the breast. Benign mammographic findings may include one or more of the following: Smooth masses, popcorn/rim/coa rse calcifications, asymmetries, post-procedure changes, and lesions with long-standing stability. IMPRESSION: BENIGN MAMMOGRAPHIC FINDINGS. BIRADS 2 BREAST DENSITY: b. There are scattered areas of fibroglandular density. BIRAD: ASSESSMENT: 2 BENIGN FINDING(S) RECOMMENDATION: 1. ROUTINE SCREENING COMMENT: The patient has been notified of the results by letter per MQSA requirements. Additional no tification policies are in place for contacting patient with suspicious or incomplete findings. Quality ID #225: The [employer] recommends an annual screening mammogram for women aged 40 years or over. This facility utilizes a reminder system to ensure that all patients receive reminder letters, and/or direct phone calls for appointments. This includes reminders for routine scr eening mammograms, diagnostic mammograms, or other Breast Imaging Interventions when appropriate. Th is patient will be placed in the appropriate reminder system. TECHNICAL DOCUMENTATION: FINDING NUMBER: (1) ASSESSMENT: (1) JOB ID: [id number] 2010 [employer]- All Rights Reserved Reading location - IP/workstation name: [email or web address]
== END ==
LOC: WI 08:42
PROVIDERS: ATTEND Physician Assistant
DX: Z12.31 Encounter for screening mammogram for malignant neoplasm of breast (principal)
CPT/HCPCS: 77063; 77067

== ENCOUNTER 2020-05-20 16:48 | Emergency (ER) | payer MEDICARE, MEDICAID ==
[2020-05-20] MEDS ORDERED: RINGERS SOLUTION,LACTATED 1,000 ML IV ONE (17:35)
[2020-05-20] MEDS ORDERED: ONDANSETRON HCL INJ/PF 4 MG/2 ML SDV IV ONE (17:39)
--- NOTE | 2020-05-20 17:39 | ER Document Report ---
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 States she has had 3-4 loose stools today. Fever of 101. Taking Tylenol and Motrin with minimal relief. Last dose of Tylenol 1:45 PM. Unable to tolerate p.o. fluids. Also complaining of bilateral flank pain and dysuria for months. History of kidney stones. Denies any ill contacts. Denies any COVID-19 exposure. PE: Alert and oriented x3. Lungs: Clear to auscultation without rales, rhonchi, wheezes. Heart: Tachycardic without murmurs, rubs, gallops. Patient was evaluated during the global COVID-19 pandemic and that diagnosis was suspected/considered upon their initial presentation. Their evaluation, treatment and testing was consistent with current guidelines for patients who presents with complaints or systems that may be related to COVID-19. I have greeted and performed a rapid initial assessment of this patient. A comprehensive ED assessment and evaluation of the patient, analysis of test results and completion of the medical decision making process will be conducted by additional ED providers. I have specifically instructed the patient or family members with the patient to immediately return to any nursing staff should anything change in the patient's condition or with their chief complaint. TRAVEL OUTSIDE OF THE [place] IN LAST 30 DAYS: No - Related Data Allergies/Adverse Reactions: No Known Allergies Allergy (Verified 08/27/18 14:21) Past Medical History - Past Medical History Cardiac Medical History: Denies: Hx Coronary Artery Disease, Hx Heart Attack, Hx Hypertension Pulmonary Medical History: Denies: Hx Asthma, Hx Bronchitis, Hx COPD, Hx Pneumonia Neurological Medical History: Reports: Hx Seizures - NO SEIZURE 5 + YEARS, NO MEDS. Denies: Hx Cerebrovascular Accident Renal/ Medical History: Reports: Hx Kidney Stones. Denies: Hx Peritoneal Dialysis Musculoskeltal Medical History: Denies Hx Arthritis Skin Medical History: Reports Hx Psoriasis Psychiatric Medical History: Denies: Hx Depression Past Surgical History: Reports: Hx Cholecystectomy, Hx Kidney (Renal Surgery) - Stent due to kidney stones, Hx Umbilical Hernia, Other - Umbilical hernia repair with mesh, followed SBO with the laparoscopic repai - Immunizations Hx Diphtheria, Pertussis, Tetanus Vaccination: No Physical Exam - Vital signs Vitals: Temp Pulse Resp BP Pulse Ox 99.8 F 130 H 20 153/102 H 100 05/20/20 17:21 05/20/20 17:21 05/20/20 17:21 05/20/20 17:21 05/20/20 17:21 Course - Vital Signs Vital signs: Temp Pulse Resp BP Pulse Ox 99.8 F 130 H 20 153/102 H 100 05/20/20 17:21 05/20/20 17:21 05/20/20 17:21 05/20/20 17:21 05/20/20 17:21 Doctor's Discharge - Discharge Referrals: TURNER MUSE PA-C [Primary Care Provider] - Follow up as needed
[2020-05-20] MEDS ORDERED: ONDANSETRON HCL INJ/PF 4 MG/2 ML SDV ONE (20:55)
--- NOTE | 2020-05-20 21:00 | RADIOLOGY REPORT (SQ) ---
EXAM DESCRIPTION: CT ABDOMEN PELVIS WITHOUT IV CONTRAST COMPLETED DATE/TME: 05/20/2020 20:22 CLINICAL HISTORY: 45 years, Female, flank pain COMPARISON: Prior CT dated 04/16/2017 TECHNIQUE: Noncontrast CT abdomen/pelvis was acquired. Coronal and sagittal reformations were created. Images stored on PACS. All CT scanners at this facility use dose modulation, iterative reconstruction, and/or weight based dosing when appropriate to reduce radiation dose to as low as reasonably achievable (ALARA). [facility]: Dose Right [facility]: CareDose [facility]: Dose Right [facility]: Teradose 4D [facility]: [employer] LIMITATIONS: None. FINDINGS: Limited evaluation of the lower chest reveals patchy groundglass opacity about the periphery of both lung bases. The liver is diffusely low in attenuation relative to the spleen. No focal liver lesions are appreciated. Spleen, pancreas, and both adrenal glands appear normal. Gallbladder is absent. Mild left hydronephrosis is noted with an associated 0.8 cm calculus located at the UVJ. Mild adjacent inflammatory stranding is noted. Remainder of the left ureter appears normal. The urinary bladder is collapsed, thus its evaluation is limited. Uterus shows no suspicious finding. A low-density lesion is noted about the left ovary 5.0 x 2.6 cm in size on image 79 of series 3. An additional fluid density lesion is noted adjacent to the right ovary measuring 3.9 x 2.1 cm in size in image 74 of series 3. Small and large bowel are normal in caliber. No evidence of bowel obstruction. Appendix is normal. There is a moderately sized fat-containing ventral hernia which demonstrates mild inflammatory stranding about the fat entering the hernia. Vascular structures show no suspicious abnormality. No suspicious lymphadenopathy or drainable fluid collections are appreciated. Bone windows show no destructive osseous lesions. IMPRESSION: 8 mm calculus located within the left UVJ with associated mild left hydronephrosis. In addition, there is mild inflammatory stranding surrounding the renal pelvis. Moderate fat-containing ventral hernia which demonstrates some degree of inflammatory stranding about the fat entering the hernia sac, raising the possibility of strangulation. Hepatic steatosis. 5 cm probably benign ovarian cyst. Recommend follow-up pelvic US in 6-12 weeks. There may be an additional right paraovarian cyst which can also be further assessed with pelvic ultrasound. Reference: J Am Bernard Radiol 2013;10:675-681 TECHNICAL DOCUMENTATION: Quality ID # 436: Final reports with documentation of one or more dose reduction techniques (e.g., Automated exposure control, adjustment of the mA and/or kV according to patient size, use of iterative reconstruction technique) copyright 2011 [employer]- All Rights Reserved
[2020-05-20 21:40] LABS: ABSOLUTE LYMPHOCYTES (AUTO) 2.7 10^3/uL (0.5-4.7); ABSOLUTE MONOCYTES (AUTO) 0.8 10^3/uL (0.1-1.4); ABSOLUTE NEUT (AUTO) 4.5 10^3/uL (1.7-8.2); BASOPHILS % (AUTO) 0.4 % (0-2); EOSINOPHILS % (AUTO) 0.2 % (0-6); HEMATOCRIT 41.2 % (36.0-47.0); HEMOGLOBIN 14.3 g/dL (12.0-15.5); LYMPHOCYTES % (AUTO) 33.5 % (13-45); MEAN CORPUSCULAR HGB CONC 34.7 g/dL (32.0-36.0); MEAN CORPUSCULAR VOLUME 92 fl (80-97); MONOCYTES % (AUTO) 9.4 % (3-13); PLATELET COUNT 169 10^3/uL (150-450); RED BLOOD COUNT 4.47 10^6/uL (3.72-5.28); RED CELL DISTRIBUTION WIDTH 13.2 % (11.5-14.0); SEGMENTED NEUTROPHILS % (AUTO) 56.5 % (42-78); TOTAL CELLS COUNTED % (AUTO) 100 %
[2020-05-20 21:55] LABS: ALBUMIN 4.3 g/dL (3.5-5.0); ALKALINE PHOSPHATASE 196 U/L (38-126); ANION GAP 14 (5-19); ASPARTATE AMINO TRANSFERASE 50 U/L (14-36); BILIRUBIN,DIRECT 0.2 mg/dL (0.0-0.4); BILIRUBIN,TOTAL 0.7 mg/dL (0.2-1.3); BLOOD UREA NITROGEN 9 mg/dL (7-20); CALCIUM 9.3 mg/dL (8.4-10.2); CARBON DIOXIDE 23 mmol/L (22-30); CHLORIDE 98 mmol/L (98-107); GLUCOSE 187 mg/dL (75-110); POTASSIUM 3.5 mmol/L (3.6-5.0); TOTAL PROTEIN 7.7 g/dL (6.3-8.2)
--- NOTE | 2020-05-20 22:38 | ER Document Report ---
ED General - General Mode of Arrival: Ambulatory Information source: Patient TRAVEL OUTSIDE OF THE [place] IN LAST 30 DAYS: No <MERARI AWAN - Last Filed: 05/21/20 02:13> <RAJESH ALTAMIRANO - Last Filed: 05/21/20 08:21> - General Chief Complaint: Fever Stated Complaint: FEVER Time Seen by Provider: 05/20/20 17:34 Primary Care Provider: TURNER MUSE PA-C [Primary Care Provider] - Follow up as needed Notes: Patient is a 45-year-old female coming in today with left flank pain, fevers, chills, body aches, nausea. She has a history of kidney stones in the past and feels that she has one now. She has an appointment with a urologist upcoming this week. She does have some cough, but not bad. History of hypertension. She is unfortunately taking immune suppressants for psoriasis. (MERARI AWAN) - Related Data Allergies/Adverse Reactions: No Known Allergies Allergy (Verified 08/27/18 14:21) Past Medical History - General Information source: Patient, Friend - Social History Smoking Status: Unknown if Ever Smoked Family History: CAD, CVA, Hyperlipidemia, Hypertension, Malignancy - Past Medical History Cardiac Medical History: Denies: Hx Coronary Artery Disease, Hx Heart Attack, Hx Hypertension Pulmonary Medical History: Denies: Hx Asthma, Hx Bronchitis, Hx COPD, Hx Pneumonia Neurological Medical History: Reports: Hx Seizures - NO SEIZURE 5 + YEARS, NO MEDS. Denies: Hx Cerebrovascular Accident Renal/ Medical History: Reports: Hx Kidney Stones. Denies: Hx Peritoneal Dialysis Musculoskeletal Medical History: Denies Hx Arthritis Skin Medical History: Reports Hx Psoriasis Psychiatric Medical History: Denies: Hx Depression Past Surgical History: Reports: Hx Cholecystectomy, Hx Kidney (Renal Surgery) - Stent due to kidney stones, Hx Umbilical Hernia, Other - Umbilical hernia repair with mesh, followed SBO with the laparoscopic repai - Immunizations Hx Diphtheria, Pertussis, Tetanus Vaccination: No <MERARI AWAN - Last Filed: 05/21/20 02:13> Review of Systems <MERARI AWAN - Last Filed: 05/21/20 02:13> - Review of Systems Notes: Constitutional: Fevers, chills, malaise, myalgias EENT: No eye redness. No eye pain. No ear pain. No sore throat. Cardiovascular: No chest pain. No palpitations. Respiratory: Positive for cough Gastrointestinal: Positive for left flank pain Genitourinary: Atraumatic. No lesions. No pain. No discharge. Musculoskeletal: Atraumatic. No swelling. No deformities. Skin: No rash or lesions. Lymphatic: No swollen lymph nodes. Neurologic: No headache. No syncope. Psychiatric: No suicidal or homicidal ideation. (MERARI AWAN) Physical Exam <MERARI AWAN - Last Filed: 05/21/20 02:13> - Vital signs Vitals: Temp Pulse Resp BP Pulse Ox 99.8 F 130 H 20 153/102 H 100 05/20/20 17:21 05/20/20 17:21 05/20/20 17:21 05/20/20 17:21 05/20/20 17:21 - Notes Notes: General: Well-developed, well-nourished. In no acute distress. Non-toxic appearing. Cardiac: Well-perfused. Tachycardia. No murmurs, rubs, or gallops. Pulmonary: No respiratory distress. No cyanosis. Bilateral lung fiels are clear to auscultation. Abdominal: Non-distended. Non-rigid. Bowels sounds are present in all four quad rants. No guarding or rebound. HEENT: Head is atraumatic. Conjunctivae not reddened. No tearing. PERRL. EOMI. Orbits atraumatic. No periorbital swelling or erythema. Oropharynx is without erythema, swelling, or exudates. Neck: Supple. No adenopathy. No meningismus. Dermatologic: Warm with good turgor. No rash. Atraumatic. Chest: Atraumatic. No chest wall tenderness to palpation. Musculoskeletal: Moves all extremities well. No range of motion deficits. no muscular or joint tenderness. No paraspinal muscle tenderness. no midline spinal tenderness or step-off. Genitourinary: Examination deferred Neurologic: No gross neurologic deficits. Psychiatric: Normal mood. (MERARI AWAN) Course - Laboratory Result Diagrams: 05/20/20 21:10 05/20/20 21:10 <MERARI AWAN - Last Filed: 05/21/20 02:13> - Laboratory Result Diagrams: 05/20/20 21:10 05/20/20 21:10 <RAJESH ALTAMIRANO - Last Filed: 05/21/20 08:21> - Re-evaluation Re-evalutation: 05/21/20 00:41 Patient actually has a normal white count and negative lactic. She does have a significant urinary tract infection with an obstructing left UVJ stone. 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 Gastelum. He felt that the patient would probably need some sort of intervention in the form of a stent. Therefore I heard back from Dr. Mcintosh at [facility] who is the hospitalist. I described the presentation and the lab work. He agreed to accept the patient in transfer to [facility] pending a rapid Covid result. (MERARI AWAN) 05/21/20 08:21 Patient's ready for transfer to [facility] by BLS transport. Patient has a left-sided kidney stone UVJ junction with a urinary tract infection. Patient has been treated with antibiotics fluids pain management. Patient still complains of pain therefore patient is to receive 1 mg IV push of Dilaudid prior to discharge. Patient is hemodynamically stable and is medically cleared to be transferred to [facility] by BLS transport. (RAJESH ALTAMIRANO) - Vital Signs Vital signs: Temp Pulse Resp BP Pulse Ox 97.7 F 97 20 139/124 H 97 05/21/20 07:28 05/21/20 00:54 05/21/20 07:28 05/21/20 07:28 05/21/20 07:28 - Laboratory Laboratory results interpreted by me: 05/20/20 05/20/20 05/21/20 21:10 22:15 21:03 Sodium 135.4 L Potassium 3.5 L Glucose 187 H AST 50 H ALT 71 H Alkaline Phosphatase 196 H Urine Protein 30 H Urine Ketones TRACE H Urine Blood MODERATE H Ur Leukocyte Esterase LARGE H SARS-CoV-2 Rap RNA(RT-PCR) POSITIVE H Discharge <MERARI AWAN - Last Filed: 05/21/20 02:13> <RAJESH ALTAMIRANO - Last Filed: 05/21/20 08:21> - Discharge Clinical Impression: Kidney stone, Person under investigation for COVID-19, Ground glass opacity present on imaging of lung, COVID-19 Hydronephrosis Qualifiers: Hydronephrosis type: unspecified Qualified Code(s): N13.30 - Unspecified hydronephrosis Condition: Good Disposition: [facility] Referrals: TURNER MUSE PA-C [Primary Care Provider] - Follow up as needed
[2020-05-20] MEDS ORDERED: NORMAL SALINE 1000 ML 1,000 ML IV ONE (22:40)
[2020-05-20 22:42] LABS: APPEARANCE,URINE CLOUDY; BILIRUBIN,URINE NEGATIVE (NEGATIVE); COLOR,URINE YELLOW; GLUCOSE, URINE NEGATIVE (NEGATIVE); KETONES,URINE TRACE mg/dL (NEGATIVE); LEUKOCYTE ESTERASE,URINE LARGE (NEGATIVE); NITRITE,URINE NEGATIVE (NEGATIVE); PROTEIN,URINE 30 mg/dL (NEGATIVE); URINE SPECIFIC GRAVITY 1.015; UROBILINOGEN,URINE NEGATIVE mg/dL (<2.0)
[2020-05-20] MEDS ORDERED: TAMSULOSIN HCL 0.4 MG CAP.SR.24H PO ONE (22:44)
[2020-05-20] MEDS ORDERED: HYDROMORPHONE HCL INJ/PF 2 MG/ML AMPULE IV ONE (22:44)
[2020-05-20] MEDS ORDERED: KETOROLAC TROMETHAMINE INJ/PF 30 MG/1 ML SDV IV ONE (22:44)
[2020-05-20 22:57] LABS: A TYPE INFLUENZA AG NEGATIVE (NEGATIVE); B INFLUENZA AG NEGATIVE (NEGATIVE)
[2020-05-20] MEDS ORDERED: CEFTRIAXONE 1 GM/D5W RTU 1 GM/50 ML RTUPB IV ONE (23:24)
--- NOTE | 2020-05-21 00:56 | RADIOLOGY REPORT (SQ) ---
EXAM DESCRIPTION: Site: CHEST SINGLE VIEW RP: XR CHEST 1 VIEW CLINICAL HISTORY: 45 years Female; cough; COMPARISON: 04/17/2017 FINDINGS: Lungs: Lungs are clear, with no focal infiltrate, pneumothorax, or pleural effusion. Mediastinum: Mediastinum is within normal limits for this positioning. Bones: Bony structures are unremarkable. IMPRESSION: 1. No acute pulmonary findings.
[2020-05-21] MEDS ORDERED: METOCLOPRAMIDE HCL INJ/PF 10 MG/2 ML SDV IV ONE (01:00)
[2020-05-21] MEDS ORDERED: BUTALB/ACETAMINOPHEN/CAFFEINE 1 TAB EACH PO ONE (03:10)
[2020-05-21 07:38] VITALS: BP 139/124
[2020-05-21] MEDS ORDERED: HYDROMORPHONE HCL INJ/PF 2 MG/ML AMPULE IV ONE (08:19)
== END 2020-05-21 08:29 | disposition short-term general hospital (02) ==
LOC: ER 16:48
DX: N13.2 Hydronephrosis with renal and ureteral calculous obstruction (principal); U07.1 COVID-19; K76.0 Fatty (change of) liver, not elsewhere classified; K43.9 Ventral hernia without obstruction or gangrene; I10 Essential (primary) hypertension; L40.9 Psoriasis, unspecified; D84.821 Immunodeficiency due to drugs; T39.4X5A Adverse effect of antirheumatics, not elsewhere classified, initial encounter; Z79.899 Other long term (current) drug therapy; N39.0 Urinary tract infection, site not specified
CPT/HCPCS: 96376; 99285; 96361; 96375 ×2; 96365; 36415; 87040; 83605; 84703; 85025; 0241U ×4; 87077; 80053; 81001; 87804; 87150 ×26; 71045; 74176; A9270 ×2; J1885; J2765; J1170 ×2; J2405; J7030; J7120; J0696; C9803; 87635; J3490

== ENCOUNTER → 2020-06-13 | Outpatient (CLI) | payer MEDICARE, MEDICAID ==
[2020-06-13 14:06] LABS: HEMATOCRIT 40.3 % (36.0-47.0); MEAN CORPUSCULAR HEMOGLOBIN 31.7 pg (27.0-33.4); MEAN CORPUSCULAR HGB CONC 34.6 g/dL (32.0-36.0); MEAN CORPUSCULAR VOLUME 92 fl (80-97); PLATELET COUNT 201 10^3/uL (150-450); RED BLOOD COUNT 4.39 10^6/uL (3.72-5.28); RED CELL DISTRIBUTION WIDTH 13.5 % (11.5-14.0); WHITE BLOOD COUNT 7.8 10^3/uL (4.0-10.5)
[2020-06-13 14:08] LABS: INTERNATIONAL RATION (INR) 0.92; PROTHROMBIN TIME 12.6 SEC (11.4-15.4)
[2020-06-13 14:09] LABS: PARTIAL THROMBOPLASTIN TIME 30.3 SEC (23.5-35.8)
[2020-06-13 14:28] LABS: ANION GAP 13 (5-19); BLOOD UREA NITROGEN 10 mg/dL (7-20); CARBON DIOXIDE 22 mmol/L (22-30); CHLORIDE 103 mmol/L (98-107); GLUCOSE 116 mg/dL (75-110); POTASSIUM 4.1 mmol/L (3.6-5.0)
[2020-06-13 14:30] LABS: ABSOLUTE LYMPHOCYTES# (MANUAL) 2.2 10^3/uL (0.5-4.7); ABSOLUTE MONOCYTES # (MANUAL) 0.4 10^3/uL (0.1-1.4); BASOPHILS % (MANUAL) 1 % (0-2); EOSINOPHILS % (MANUAL) 6 % (0-6); LYMPHOCYTES % (MANUAL) 22 % (13-45); METAMYELOCYTES % (MANUAL) 1 % (0-1); MONOCYTES % (MANUAL) 5 % (3-13); SEGMENTED NEUTROPHILS % (MAN) 59 % (42-78); TOTAL CELLS COUNTED 100
[2020-06-13 14:32] LABS: PLATELET CLUMPS PRESENT; PLATELET COMMENT ADEQUATE; RBC MORPHOLOGY COMMENT NORMO-CYTIC/CHROMIC; TOXIC VACUOLATION PRESENT
== END ==
LOC: LAB 13:09
PROVIDERS: ATTEND Urology
DX: N39.0 Urinary tract infection, site not specified (principal); N20.0 Calculus of kidney; R31.0 Gross hematuria; B37.3 Candidiasis of vulva and vagina
CPT/HCPCS: 36415; 80048; 85025; 85610; 85730; 87070

== ENCOUNTER 2020-07-03 18:30 | Emergency (ER) | payer MEDICARE, MEDICAID ==
[2020-07-03 19:40] LABS: APPEARANCE,URINE SLIGHTLY-CLOUDY; BILIRUBIN,URINE NEGATIVE (NEGATIVE); COLOR,URINE YELLOW; GLUCOSE, URINE NEGATIVE (NEGATIVE); KETONES,URINE NEGATIVE (NEGATIVE); PROTEIN,URINE 30 mg/dL (NEGATIVE); URINE SPECIFIC GRAVITY 1.004; UROBILINOGEN,URINE NEGATIVE mg/dL (<2.0)
[2020-07-03] MEDS ORDERED: NORMAL SALINE 1000 ML 1,000 ML IV ONE (20:28)
[2020-07-03] MEDS ORDERED: KETOROLAC TROMETHAMINE INJ/PF 30 MG/1 ML SDV IV ONE (20:28)
--- NOTE | 2020-07-03 20:28 | ER Document Report ---
ED Medical Screen (RME) - General Chief Complaint: Pain With Urination Stated Complaint: ABDOMINAL PAIN,PAINFUL URINATION Time Seen by Provider: 07/03/20 20:22 Primary Care Provider: ISABEL METZGER MD [Primary Care Provider] - Follow up as needed Mode of Arrival: Ambulatory Information source: Patient TRAVEL OUTSIDE OF THE [place] IN LAST 30 DAYS: No - HPI Patient complains to provider of: abdo pain, pain with uriantion Notes: 07/03/20 20:27 Patient here with complaints of dysuria and lower left abdominal pain. The patient was recently diagnosed with kidney stones and has a stent in place. Started having a lot of pain with urination and feel like she is not urinating fully. No fever. No nausea, vomiting, diarrhea. Exam: No distress, nontoxic appearing. Left lower quadrant abdominal tenderness on limited triage abdominal exam. No respiratory distress. An initial examination was made on the patient as part of the triage process, and it was determined a more comprehensive evaluation was necessary. Initial labs were ordered and patient was transferred to another provider in the ED who assumed care and finished evaluation and plan. - Related Data Allergies/Adverse Reactions: No Known Allergies Allergy (Verified 07/03/20 20:19) Home Medications: METFORMIN Past Medical History - Social History Frequency of alcohol use: None Drug Abuse: None - Past Medical History Cardiac Medical History: Denies: Hx Coronary Artery Disease, Hx Heart Attack, Hx Hypertension Pulmonary Medical History: Denies: Hx Asthma, Hx Bronchitis, Hx COPD, Hx Pneumonia Neurological Medical History: Reports: Hx Seizures - NO SEIZURE 5 + YEARS, NO MEDS. Denies: Hx Cerebrovascular Accident Renal/ Medical History: Reports: Hx Kidney Stones. Denies: Hx Peritoneal Dialysis Musculoskeltal Medical History: Denies Hx Arthritis Skin Medical History: Reports Hx Psoriasis Psychiatric Medical History: Denies: Hx Depression Past Surgical History: Reports: Hx Cholecystectomy, Hx Kidney (Renal Surgery) - Stent due to kidney stones, Hx Umbilical Hernia, Other - Umbilical hernia repair with mesh, followed SBO with the laparoscopic repai - Immunizations Hx Diphtheria, Pertussis, Tetanus Vaccination: No Physical Exam - Vital signs Vitals: Temp Pulse Resp BP Pulse Ox 99.1 F 106 H 20 165/99 H 99 07/03/20 19:16 07/03/20 19:16 07/03/20 19:16 07/03/20 19:16 07/03/20 19:16 Course - Vital Signs Vital signs: Temp Pulse Resp BP Pulse Ox 99.1 F 106 H 20 165/99 H 99 07/03/20 19:16 07/03/20 19:16 07/03/20 19:16 07/03/20 19:16 07/03/20 19:16 - Laboratory Results Laboratory Results Interpreted: 07/03/20 19:05 Urine Protein 30 H Urine Blood LARGE H Leukocyte Esterase Rfl LARGE H Doctor's Discharge - Discharge Referrals: ISABEL METZGER MD [Primary Care Provider] - Follow up as needed
[2020-07-03 21:17] LABS: ABSOLUTE BASOPHILS # (AUTO) 0.1 10^3/uL (0.0-0.2); ABSOLUTE EOSINOPHILS # (AUTO) 0.3 10^3/uL (0.0-0.6); ABSOLUTE LYMPHOCYTES (AUTO) 2.7 10^3/uL (0.5-4.7); ABSOLUTE MONOCYTES (AUTO) 0.8 10^3/uL (0.1-1.4); ABSOLUTE NEUT (AUTO) 5.5 10^3/uL (1.7-8.2); BASOPHILS % (AUTO) 0.5 % (0-2); EOSINOPHILS % (AUTO) 3.1 % (0-6); HEMATOCRIT 39.5 % (36.0-47.0); LYMPHOCYTES % (AUTO) 29.2 % (13-45); MEAN CORPUSCULAR HEMOGLOBIN 31.8 pg (27.0-33.4); MEAN CORPUSCULAR HGB CONC 35.3 g/dL (32.0-36.0); MEAN CORPUSCULAR VOLUME 90 fl (80-97); MONOCYTES % (AUTO) 8.3 % (3-13); PLATELET COUNT 241 10^3/uL (150-450); RED CELL DISTRIBUTION WIDTH 13.2 % (11.5-14.0); SEGMENTED NEUTROPHILS % (AUTO) 58.9 % (42-78); TOTAL CELLS COUNTED % (AUTO) 100 %; WHITE BLOOD COUNT 9.3 10^3/uL (4.0-10.5)
[2020-07-03 21:19] LABS: ALBUMIN 4.3 g/dL (3.5-5.0); ALKALINE PHOSPHATASE 118 U/L (38-126); ANION GAP 10 (5-19); ASPARTATE AMINO TRANSFERASE 73 U/L (14-36); BILIRUBIN,DIRECT 0.2 mg/dL (0.0-0.4); BILIRUBIN,TOTAL 0.7 mg/dL (0.2-1.3); BLOOD UREA NITROGEN 13 mg/dL (7-20); CALCIUM 9.6 mg/dL (8.4-10.2); CARBON DIOXIDE 25 mmol/L (22-30); CHLORIDE 101 mmol/L (98-107); GLUCOSE 125 mg/dL (75-110); POTASSIUM 3.6 mmol/L (3.6-5.0); TOTAL PROTEIN 7.9 g/dL (6.3-8.2)
--- NOTE | 2020-07-03 21:47 | RADIOLOGY REPORT (SQ) ---
EXAM DESCRIPTION: Site: CT ABD/PELVIS NO ORAL OR IV RP: CT ABDOMEN PELVIS WITHOUT IV CONTRAST CLINICAL HISTORY: 45 years Female; left abdo pain, recent kidney stones; TECHNIQUE: CT of the abdomen and pelvis without intravenous contrast. All CT scans at this facility use dose modulation, iterative reconstruction, and/or weight based dosing when appropriate to reduce radiation dose to as low as reasonably achievable. COMPARISON: 05/20/2020 FINDINGS: Abdomen: Stomach: No significant distention or surrounding edema. Liver: Enlarged as on prior exam. The diffuse steatosis has improved. No ductal distention. Gallbladder: Surgically absent Pancreas:Within normal limits Spleen:Within normal limits Right kidney:No hydronephrosis. No renal or ureteral calculi. Left kidney: Ureteral stent is in place. There is mild edema along the proximal ureter and at the renal hilum. No hydronephrosis. Lower pole calculi, largest 6 mm. No calculus along the stent. Adrenal glands:Within normal limits Vascular structures:No aortic aneurysm. Pelvis: Small bowel:No significant distention. Appendix:Within normal limits Colon:No distention or acute pericolonic edema. No free intraperitoneal fluid or air. Bones: No acute bone findings. Bladder: Unremarkable. No pelvic mass or adenopathy. Note that evaluation of the bowel and solid organs is somewhat limited due to lack of intravenous and oral contrast. IMPRESSION: 1. Placement of left ureteral stent since 05/20/2020. No hydronephrosis. Lower pole calculi. 2. There is mild edema along the proximal ureter at the left renal hilum. Although this could be related to the stent, please correlate with urinalysis regarding possibility of infection. 3. Previous cholecystectomy 4. Improved hepatic steatosis
[2020-07-03] MEDS ORDERED: CEFTRIAXONE 1 GM/D5W RTU 1 GM/50 ML RTUPB IV ONE (22:56)
[2020-07-04] MEDS ORDERED: CEFTRIAXONE 1 GM/D5W RTU 1 GM/50 ML RTUPB IV ONE (04:00)
[2020-07-04] MEDS ORDERED: KETOROLAC TROMETHAMINE INJ/PF 30 MG/1 ML SDV IV ONE (04:00)
--- NOTE | 2020-07-04 04:41 | ER Document Report ---
ED GI/ - General Chief Complaint: Abdominal Pain Stated Complaint: ABDOMINAL PAIN,PAINFUL URINATION Time Seen by Provider: 07/03/20 20:22 Primary Care Provider: ISABEL METZGER MD [Primary Care Provider] - Follow up as needed Mode of Arrival: Ambulatory Information source: Patient Notes: 07/03/20 20:24 - ED Nursing Note by HEIDESHIVANI Num: [id number] : 1975 Patient Age: [age] Y/O FEMALE, PRESENTS WITH SEVERE LFT LOWER ABD PAIN 5/5. PT HAS A CURRENT STENT. PT PRESENTING WITH BURNING/PAINFULL URINATION AND BLOOD TINGE URINE. 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 Initialized on 07/03/20 20:24 - END OF NOTE ED Medical Screen (Tammie Lazo) - General Chief Complaint: Pain With Urination Stated Complaint: ABDOMINAL PAIN,PAINFUL URINATION Time Seen by Provider: 07/03/20 20:22 Primary Care Provider: ISABEL METZGER MD [Primary Care Provider] - Follow up as needed Mode of Arrival: Ambulatory Information source: Patient TRAVEL OUTSIDE OF THE [place] IN LAST 30 DAYS: No - HPI Patient complains to provider of: abdo pain, pain with uriantion Notes: 07/03/20 20:27 Patient here with complaints of dysuria and lower left abdominal pain. The patient was recently diagnosed with kidney stones and has a stent in place. Started having a lot of pain with urination and feel like she is not urinating fully. No fever. No nausea, vomiting, diarrhea. Exam: No distress, nontoxic appearing. Left lower quadrant abdominal tenderness on limited triage abdominal exam. No respiratory distress. 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 Patient reports she had a covid pneumonia as well as a left kidney stent placed because of a stone in her left ureter. CT scan was done today which revealed left ureter stent proximal ureter edema question of infection and increased hepatic steatosis. Patient reports she has some dysuria as well. Patient reports within the last 3 weeks she had a stone blasted /lithotripsy by her urologist; she reports she has had lithotripsy before and stents before but never had pain like this in the past. TRAVEL OUTSIDE OF THE [place] IN LAST 30 DAYS: No - HPI Patient complains to provider of: Abdominal pain, Dysuria, Flank pain, Bashir catheter problem, Pelvic pain. No: Feeding tube problem, Hematuria, Missed/Late menses, , Urinary retention, Vaginal bleeding, Vaginal discharge, Vaginal pain Onset: Yesterday Timing/Duration: Persistent, Worse Severity at maximum: Severe Severity in ED: Severe Pain Level: 5 Location: Left flank - Related Data Allergies/Adverse Reactions: No Known Allergies Allergy (Verified 07/03/20 20:19) Home Medications: METFORMIN Past Medical History - General Information source: Patient - Social History Smoking Status: Former Smoker Cigarette use (# per day): No Chew tobacco use (# tins/day): No Smoking Education Provided: No Frequency of alcohol use: None Drug Abuse: None Lives with: Family Family History: Reviewed & Not Pertinent, CAD, CVA, Hyperlipidemia, Hypertension, Malignancy Patient has suicidal ideation: No Patient has homicidal ideation: No - Past Medical History Cardiac Medical History: Denies: Hx Coronary Artery Disease, Hx Heart Attack, Hx Hypertension Pulmonary Medical History: Denies: Hx Asthma, Hx Bronchitis, Hx COPD, Hx Pneumonia Neurological Medical History: Reports: Hx Seizures - NO SEIZURE 5 + YEARS, NO MEDS. Denies: Hx Cerebrovascular Accident Renal/ Medical History: Reports: Hx Kidney Stones. Denies: Hx Peritoneal Dialysis Musculoskeletal Medical History: Denies Hx Arthritis Skin Medical History: Reports Hx Psoriasis Psychiatric Medical History: Denies: Hx Depression Past Surgical History: Reports: Hx Cholecystectomy, Hx Kidney (Renal Surgery) - Stent due to kidney stones, Hx Umbilical Hernia, Other - Umbilical hernia repair with mesh, followed SBO with the laparoscopic repai - Immunizations Hx Diphtheria, Pertussis, Tetanus Vaccination: No Review of Systems - Review of Systems Constitutional: See HPI, Fever, Weakness, Recent illness EENT: No symptoms reported Cardiovascular: No symptoms reported Respiratory: No symptoms reported Gastrointestinal: See HPI, Abdominal pain, Nausea Genitourinary: No symptoms reported, See HPI, Burning, Dysuria, Flank pain Female Genitourinary: No symptoms reported Musculoskeletal: No symptoms reported Skin: No symptoms reported Hematologic/Lymphatic: No symptoms reported Neurological/Psychological: No symptoms reported -: Yes All other systems reviewed and negative Physical Exam - Vital signs Vitals: Temp Pulse Resp BP Pulse Ox 99.1 F 106 H 20 165/99 H 99 07/03/20 19:16 07/03/20 19:16 07/03/20 19:16 07/03/20 19:16 07/03/20 19:16 Interpretation: Hypertensive, Tachycardic - Notes Notes: Patient was snoring in room and I was required to shake her gently in order to awaken her at approximately 0 435 she you awakened easily and was able to give me her history. She pointed to her ears and advised that she is very near deaf. If I were to speak very loudly it appears she understood and heard me. - General General appearance: Alert - HEENT Head: Normocephalic, Atraumatic Eyes: Normal Pupils: PERRL - Respiratory Respiratory status: No respiratory distress Chest status: Nontender Breath sounds: Normal Chest palpation: Normal - Cardiovascular Rhythm: Tachycardia Heart sounds: Normal auscultation Murmur: No - Abdominal Inspection: Morbidly Obese Distension: No distension Bowel sounds: Normal Tenderness: Tender, Guarding Organomegaly: No organomegaly - Rectal Hemorrhoids: Other - Deferred - Genitourinary Bimanuel exam: Other - Deferred - Back Back: Normal, Nontender - Extremities General upper extremity: Normal inspection, Nontender, Normal color, Normal ROM, Normal temperature General lower extremity: Normal inspection, Nontender, Normal color, Normal ROM, Normal temperature, Normal weight bearing. No: Otis's sign - Neurological Neuro grossly intact: Yes Cognition: Normal Orientation: AAOx4 [place] Coma Scale Eye Opening: Spontaneous Rebecca Coma Scale Verbal: Oriented Rebecca Coma Scale Motor: Obeys Commands [place] Coma Scale Total: 15 Speech: Normal Motor strength normal: LUE, RUE, LLE, RLE Sensory: Normal - Psychological Associated symptoms: Normal affect, Normal mood - Skin Skin Temperature: Warm Skin Moisture: Dry Skin Color: Normal Course - Vital Signs Vital signs: Temp Pulse Resp BP Pulse Ox 99.1 F 106 H 20 165/99 H 99 07/03/20 19:16 07/03/20 19:16 07/03/20 19:16 07/03/20 19:16 07/03/20 19:16 - Laboratory Results Result Diagrams: 07/03/20 20:45 07/03/20 20:45 Laboratory Results Interpreted: 07/03/20 07/03/20 19:05 20:45 Sodium 135.6 L Glucose 125 H AST 73 H ALT 127 H Urine Protein 30 H Urine Blood LARGE H Leukocyte Esterase Rfl LARGE H Critical Laboratory Results Reviewed: Yes Attending or Supervising Physician who Reviewed Labs: KIRILL BURGOS JR - Radiology Results Critical Radiology Results Reviewed: Yes Attending or Supervising Physician who Reviewed Radiology: KIRILL BURGOS JR Critical Care Note - Critical Care Note Comments: I advised her of the CT scan and lab findings Discharge - Discharge Clinical Impression: Left flank pain, stent of left ureter Fever Qualifiers: Fever type: unspecified Qualified Code(s): R50.9 - Fever, unspecified Hypertension Qualifiers: Hypertension type: unspecified Qualified Code(s): I10 - Essential (primary) hypertension Condition: Stable Disposition: HOME, SELF-CARE Additional Instructions: Follow-up with urologist tomorrow return to ER as needed. Take medicines as directed encourage fluids. Also take antibiotics as directed. Prescriptions: Levofloxacin [Levaquin 500 mg Tablet] 500 mg PO DAILY #10 tablet Referrals: ISABEL METZGER MD [Primary Care Provider] - Follow up as needed
[2020-07-04] MEDS ORDERED: HYDROCODONE/ACETAMINOPHEN 5-325 MG (6 TAB/ER DISP) PO PRN (05:00)
[2020-07-04 05:19] VITALS: BP 118/63
== END 2020-07-04 05:19 | disposition home or self-care (01) ==
LOC: ER 18:30
DX: R10.9 Unspecified abdominal pain (principal); R50.9 Fever, unspecified; R53.1 Weakness; R10.2 Pelvic and perineal pain; R10.814 Left lower quadrant abdominal tenderness; R30.0 Dysuria; K76.0 Fatty (change of) liver, not elsewhere classified; H91.93 Unspecified hearing loss, bilateral; I10 Essential (primary) hypertension; Z98.890 Other specified postprocedural states; Z96.0 Presence of urogenital implants; Z87.891 Personal history of nicotine dependence; Z87.442 Personal history of urinary calculi
CPT/HCPCS: 99285; 96361; 96375; 96365; 36415; 87086; 83690; 85025; 87088; 80053; 81001; 74176; J1885; J7030; J0696; A9270